=== PATIENT | female | born 1950 | race Caucasian/White ===

== ENCOUNTER 2021-10-06 14:30 | Emergency (ER) | payer MEDICARE, OTHER, SELFPAY ==
--- NOTE | 2021-10-06 15:06 | HMH.EDUTC ---
[facility] [place] Clinical Impression: Skin abscess Qualifiers: Site of cutaneous abscess: trunk Site of cutaneous abscess of trunk: unspecified site Qualified Code(s): L02.219 - Cutaneous abscess of trunk, unspecified Disposition: Home, Self-Care Condition on Discharge: Good Instructions: Boil Additional Instructions: Keep the wounds clean and dry. Follow up with your regular doctor. Take the antibiotics as directed and apply the topical antibiotics as directed. Watch the site for signs of worsening infection, such as worsening redness, drainage, swelling, etc. Return in 3 days to have the packing removed and the wound rechecked. GO TO THE ER FOR ANY WORSENING SYMPTOMS Prescriptions: Mupirocin [Bactroban 2% Ointment 22gm tube] 1 applicatio TP TID 7 Days #1 gm Transmission Status: Received by [id number] cephALEXin [cephALEXin 500mg capsule] 500 mg PO Q6H 10 Days #40 cap Transmission Status: Received by [id number] Referrals: Paul Fan [Primary Care Provider] - Time of Disposition: 16:09 Medical Decision Making - Medical Records Medical records reviewed: No: I reviewed the patient's medical records. - Ismael Inquiry Pt receiving controlled substance: No Vital Signs: 10/06/21 15:09 10/06/21 16:30 Temperature 98.2 F 98.2 F Temperature Source Oral Pulse Rate 67 Pulse Rate [Left] 67 Respiratory Rate 16 16 Blood Pressure 146/56 H Blood Pressure [Right Arm] 146/56 H Blood Pressure Mean [Right Arm] 86 02 Sat by Pulse Oximetry 95 Orders (Tests/Meds): ED MEDICATIONS Discontinued Medications Generic Name Dose Route Start Last Admin Trade Name Freq PRN Reason Stop Dose Admin Ceftriaxone Sodium 1 gm 10/06/21 16:07 Ceftriaxone 1gm Vial IM 10/06/21 16:08 ONCE ONE Lidocaine HCl 0 ml 10/06/21 16:07 Lidocaine 1% 5ml Pf Vial IM 10/06/21 16:08 ONCE ONE ORDERS Category Date Time Status Wound Culture and Gram Stain Stat Micro 10/06/21 16:20 Results [facility] [place] - General Stated complaint: skin abcess Time Seen by Provider: 10/06/21 15:06 - History of Present Illness Provider Complaint: She has an area of redness and swelling on her right axillary area. This has been getting worse for the past 4 days. She [place] in the [place] of [place] and she beleives she was bit by an insect before she left there to come here. She has had a similar episode to this about 4 years ago after a bug bite. - Related Data Previous Rx's Medication Instructions Recorded Mupirocin [Bactroban 2% Ointment 1 applicatio TP TID 7 Days #1 gm 10/06/21 22gm tube] cephALEXin [cephALEXin 500mg 500 mg PO Q6H 10 Days #40 cap 10/06/21 capsule] Allergies Allergy/AdvReac Type Severity Reaction Status Date / Time No Known Allergies Allergy Verified 10/06/21 15:12 [facility] History - Hepatitis A Screen Attestation statement:: This patient has been screened for Hepatitis A risk factors. I have reviewed the patient's past medical history: Yes ROS Obtained: Yes All systems reviewed & no additional complaints - Constitutional Constitutional: Denies chills, Denies fever(s) - Eyes Eyes: Denies eye discharge - Musculoskeletal Musculoskeletal: Denies joint pain - Integumentary/Breasts Skin/Breast: Reports as per HPI Physical Exam - General General appearance: alert, in no apparent distress - Head Head exam: atraumatic, normocephalic, normal inspection - Eye Eye exam: Present: normal appearance, PERRL, EOMI - ENT ENT exam: Present: normal exam, normal oropharynx, mucous membranes moist, TM's normal bilaterally, normal external ear exam - Neck Neck exam: Present: normal inspection, full ROM, trachea midline. Absent: meningismus, lymphadenopathy - Chest Chest inspection: Present: normal inspection, symmetric chest wall rise. Absent: tenderness - Respiratory Respiratory exam: Present: normal lung sounds bi
[2021-10-06 15:09] VITALS: BP 146/56; PULSE 67; RESP 16; TEMP 36.8; O2SAT 95; BMI 32.4
[2021-10-06 16:30] VITALS: BP 146/56; PULSE 67; RESP 16; TEMP 36.8
== END 2021-10-06 16:34 | disposition home or self-care (01) ==
PROVIDERS: Emergency Provider Nurse Practitioner Family; PCP Family Medicine
DX: L02.219 Cutaneous abscess of trunk, unspecified (principal)
CPT/HCPCS: 10060; 87070; 87205; 99213; G0463

== ENCOUNTER 2021-10-09 13:18 | Emergency (ER) | payer MEDICARE, OTHER, SELFPAY ==
[2021-10-09 13:35] VITALS: BP 136/71; PULSE 88; RESP 16; TEMP 36.8; O2SAT 95; BMI 32.4
--- NOTE | 2021-10-09 13:42 | HMH.EDUTC ---
[facility] [place] Disposition Clinical Impression: Abscess of skin Qualifiers: Site of cutaneous abscess: trunk Site of cutaneous abscess of trunk: chest wall Qualified Code(s): L02.213 - Cutaneous abscess of chest wall Disposition: Home, Self-Care Condition on Discharge: Good Instructions: Boil Additional Instructions: Keep the affected area clean and dry. Follow up with your regular doctor. Take the antibiotics as directed and apply the topical antibiotics as directed. Apply warm wet compresses to the affected area three or four times per day. Follow up with the surgeon (Dr. Souza). Please call his office to make an appointment. The office number will be on this paperwork. GO TO THE ER FOR ANY WORSENING SYMPTOMS Continue the antibiotics until the culture report is complete. It should be complete tonight. I will call you in the morning about it and we will go from there. Referrals: Paul Fan [Primary Care Provider] - Jeet Souza MD [Staff Physician] - Time of Disposition: 14:19 Medical Decision Making - Medical Records Medical records reviewed: No: I reviewed the patient's medical records. - Ismael Inquiry Pt receiving controlled substance: No Vital Signs: 10/09/21 13:35 10/09/21 14:29 Temperature 98.2 F 98.2 F Temperature Source Oral Pulse Rate 88 Pulse Rate [Left] 88 Respiratory Rate 16 16 Blood Pressure 136/71 Blood Pressure [Right Arm] 136/71 Blood Pressure Mean [Right Arm] 92 02 Sat by Pulse Oximetry 95 [facility] [place] HPI - General Stated complaint: abcess on right side Time Seen by Provider: 10/09/21 14:15 - History of Present Illness Provider Complaint: She is back today to have the wound on her right chest rechecked and the packing removed. She states that the site has continued to drain and it feels much better now. - Related Data Previous Rx's Medication Instructions Recorded Mupirocin [Bactroban 2% Ointment 1 applicatio TP TID 7 Days #1 gm 10/06/21 22gm tube] cephALEXin [cephALEXin 500mg 500 mg PO Q6H 10 Days #40 cap 10/06/21 capsule] Allergies Allergy/AdvReac Type Severity Reaction Status Date / Time No Known Allergies Allergy Verified 10/06/21 15:12 [facility] History - Hepatitis A Screen Attestation statement:: This patient has been screened for Hepatitis A risk factors. I have reviewed the patient's past medical history: Yes ROS Obtained: Yes All systems reviewed & no additional complaints - Constitutional Constitutional: Denies chills, Denies fever(s) - Eyes Eyes: Denies eye discharge - Musculoskeletal Musculoskeletal: Denies joint pain - Integumentary/Breasts Skin/Breast: Reports as per HPI Physical Exam - General General appearance: alert, in no apparent distress - Head Head exam: atraumatic, normocephalic, normal inspection - Eye Eye exam: Present: normal appearance, PERRL, EOMI - ENT ENT exam: Present: normal exam, normal oropharynx, mucous membranes moist, TM's normal bilaterally, normal external ear exam - Neck Neck exam: Present: normal inspection, full ROM, trachea midline. Absent: meningismus, lymphadenopathy - Chest Chest inspection: Present: normal inspection, symmetric chest wall rise. Absent: tenderness - Respiratory Respiratory exam: Present: normal lung sounds bilaterally. Absent: respiratory distress - Cardiovascular Cardiovascular exam: Present: regular rate, normal rhythm. Absent: JVD - Abdominal Exam Abdominal exam: Present: soft, normal bowel sounds. Absent: distention, tenderness, guarding - Extremities Exam Extremities exam: Present: normal inspection, full ROM, normal capillary refill. Absent: calf tenderness - Back Exam Back exam: Present: normal inspection. Absent: tenderness - Neurological Exam Neurological exam: Present: alert, oriented X3 - Psychiatric Psychiatric exam: Present: normal affect, normal mood - Skin Skin exam: Present: other (the wound on h
[2021-10-09 14:29] VITALS: BP 136/71; PULSE 88; RESP 16; TEMP 36.8
== END 2021-10-09 14:30 | disposition home or self-care (01) ==
PROVIDERS: Emergency Provider Nurse Practitioner Family; PCP Family Medicine
DX: L02.213 Cutaneous abscess of chest wall (principal)
CPT/HCPCS: 99211; G0463

== ENCOUNTER → 2021-11-09 11:51 | Outpatient (CLI) | payer MEDICARE, OTHER, SELFPAY ==
[2021-11-09 12:29] LABS: Basophils # 0.1 K/mm3 (0-0.2); Basophils % 1.3 % (0.1-2.0); Eosinophils # 0.2 K/mm3 (0.0-0.4); Eosinophils % 2.5 % (0.1-12.0); Hematocrit 42.7 % (37.0-47.0); Hemoglobin 13.7 g/dL (12.2-16.2); Lymphocytes # 2.1 K/mm3 (0.7-4.5); Lymphocytes % 35.1 % (10-50); Mean Corpuscular HGB Conc 32.1 g/dL (31.8-35.4); Mean Corpuscular Hemoglobin 30.8 pg (27.0-31.2); Mean Platelet Volume 10.4 fl (7.4-10.4); Monocytes # 0.4 K/mm3 (0.1-1.0); Monocytes % 6.2 % (1.7-9.3); Neutrophils # 3.2 K/mm3 (1.8-7.8); Neutrophils % 54.9 % (37.0-80.0); Platelet Count 209 K/mm3 (142-424); Red Blood Count 4.45 M/mm3 (4.20-5.40); Red Cell Distribution Width 13.6 % (11.5-17.5); White Blood Count 5.9 K/mm3 (4.8-10.8)
[2021-11-09 13:02] LABS: Alanine Aminotransferase 38 U/L (12-78); Albumin Level 4.3 g/dl (3.5-5.0); Albumin/Globulin Ratio 1.7 (1.1-1.8); Alkaline Phosphatase 93 U/L (38-126); Anion Gap 8.2 mEq/L (5-15); Aspartate Amino Transferase 40 U/L (14-36); Blood Urea Nitrogen 13 mg/dl (7-17); Calcium 9.5 mg/dl (8.4-10.2); Carbon Dioxide 28 mmol/L (22.0-30.0); Chloride 107 mmol/L (98-107); Estimated Glomerular Filt Rate 71 ml/min (>60); GFR (African American) 86 ML/MIN (>60); Globulin 2.6 g/dL (1.3-3.2); Glucose 104 mg/dl (74-100); Potassium 4.2 mmoL/L (3.5-5.1); Sodium 139 mmol/L (136-145); Total Protein,Serum 6.9 g/dl (6.3-8.2)
[2021-11-09 13:10] LABS: Bilirubin,Total 0.1 mg/dl (0.2-1.3)
== END ==
PROVIDERS: PCP Family Medicine; Visit Provider Surgery
DX: L02.91 Cutaneous abscess, unspecified (principal); Z01.812 Encounter for preprocedural laboratory examination; Z20.822 Contact with and (suspected) exposure to COVID-19
CPT/HCPCS: 36415; 80053; 85025; C9803; U0003; U0005

== ENCOUNTER 2021-11-11 07:51 | Day surgery (SDC) | payer MEDICARE, OTHER, SELFPAY ==
[2021-11-07 10:22] VITALS: BMI 31.8
[2021-11-11] VITALS (11 sets, daily range): BP systolic 112–155; BP diastolic 50–80; PULSE 53–71; RESP 12–18; TEMP 36.1–36.6; O2SAT 94–100
--- NOTE | 2021-11-11 08:43 | HMH.ANESCL ---
[facility] Anesthesia Checklist - Patient Identification Patient Identification: Arm Band - Structural Data Admitted From: Home Planned Operative Procedure/s: Excision of Right Chest Wall Cyst Consent for Planned Operative Procedure(s) Verified: Yes Verified Documents: Surgical Consent, History and Physical - NPO Status Verified Time NPO: 00:00 - Additional verifications Anesthesia Reactions: No Hx Blood Transfusions: No Blood Transfusion Reaction: No - Airway Assessment C-Spine Mobility Assessed: Yes (mp2) TMJ Mobility Assessed: Yes Dentition: Good Dentition - Neurological Assessment Level of Consciousness: Awake, Alert - Anesthesia Plan Anesthesia Risk discussed: Yes Anesthesia Plan: Verified ASA Class: II Anesthesia Type: General [facility] History I have reviewed the patient's past medical history: Yes Medical History: Reports:: Asthma Denies:: Cancer, Diabetes Mellitus Type 1, Diabetes Mellitus Type 2, MRSA, Seizures *Have you ever received a pneumonia vaccine?: No *Have you received a flu vaccine this season?: Yes Other Medical History: Denies: Blood Transfusion Reaction Anesthesia experience/problems:: nac Other Surgeries: Yes: Colonoscopy Amputation: No Fractures: No - *Social History Last grade of school completed: High school graduate Smoking Status: Never smoker Alcohol Intake: never Alcohol Intake Frequency:: holidays/special occasions only Substance Use Type: denies use *Occupational Status:: employed *Travel in the last 8 weeks: None Family Hx:: No significant family history
--- NOTE | 2021-11-11 10:34 | HMH.OPNOTE ---
Date of procedure: 11/11/21 Pre-op Diagnosis:: Recurrent right chest wall lesion/cyst Post-op Diagnosis:: Same Procedure performed:: Excision of right chest wall skin lesion (excisional length 3 cm) with intermediate complexity closure Surgeon:: Jeet Souza MD MANAGER ENROLLMENT:: Other Anesthesia: local, LMA Estimated blood loss (mL): 5 Operative findings:: Some underlying scar tissue of uncertain etiology Operative note:: Patient was taken the operating room. She was positioned in supine position. Anesthesia was induced via LMA. Her right side was bumped somewhat to allow for access to the area. It was prepped and draped. Lesion was marked with skin marker for planned grossly negative margins. Limited local anesthetic was infiltrated. Full-thickness skin incision was performed. Dissection was carried down through subcutaneous tissues. There was some underlying subdermal fibrosis consistent with scarring of uncertain etiology. The lesion with overlying skin ellipse was excised to normal healthy appearing subcutaneous tissues with sharp dissection. Hemostasis was achieved with electrocautery. Irrigation was performed. Subdermal tissues were closed with several interrupted 3-0 Vicryl sutures. Skin was closed with interrupted 4-0 nylon. Clean dry sterile dressing was applied. Condition: stable Disposition: PACU Specimens:: Right chest wall skin lesion Complications:: None immediately apparent
--- NOTE | 2021-11-11 10:45 | P.PN_ITS ---
[facility] Anesthesia Record Part I Intake, IV Amount: 900 Estimated blood loss (mL): 0 Urine output (mL): 0 Blood Pressure: 112/50 SaO2: 97 Pulse Rate: 62 Respiratory Rate: 12 Temperature: 97.4 F Patient is:: Awake Stable to PACU at:: 10:35
--- NOTE | 2021-11-11 13:14 | HMH.ANESII ---
[facility] Anesthesia Record Part II Discharge Time: 11:05 Destination: Surgical Day Care (OP Surgery) PACU nurse assessment reviewed?: Yes Patient Condition:: Good Anesthesia Complications:: None Swallowing reflex intact?: Yes Cyanosis?: No Blood Pressure: 117/61 Pulse Rate: 57 Temperature: 97 F Mental Status: Alert & Oriented Pain level:: 0 Nausea and/or vomitting:: None Intake, IV Amount: 0
== END 2021-11-11 11:50 | disposition home or self-care (01) ==
LOC: OR 07:52
PROVIDERS: PCP Family Medicine; Visit Provider Surgery
DX: Z79.899 Other long term (current) drug therapy; J45.909 Unspecified asthma, uncomplicated; L72.8 Other follicular cysts of the skin and subcutaneous tissue; L02.213 Cutaneous abscess of chest wall
CPT/HCPCS: 11403; 12032; 88304; 96374; J2405

== ENCOUNTER 2022-11-20 09:38 | Day surgery (SDC) | payer MEDICARE, OTHER, SELFPAY ==
[2022-10-30 14:32] VITALS: BMI 32.9
[2022-11-20 09:59] VITALS: BP 153/73; PULSE 65; RESP 18; TEMP 36.3; O2SAT 97
--- NOTE | 2022-11-20 10:31 | EXP.ANES.CKL ---
[facility] Disclaimer: The information contained in this section may have been updated after the patient was seen, as this information can be updated by other users. Medical History Allergies Rosacea Surgical History History of colonoscopy History of incision and drainage Hx of arthroscopic knee surgery Family History Other No significant family history Social History Smoking Status: Never smoker alcohol intake: current substance use type: denies use current occupational status: retired Travel in the last 8 weeks: None household members: spouse housing: house lives independently: No marital status: education level: college service: No senior care: No current occupational exposures/hazards: No caffeine: Yes special patrick needs: No agree to transfusion: No do you feel safe at home: Yes victim of physical abuse: No victim of emotional abuse: No victim of sexual abuse: No would you like helpful sources: No [facility] Anesthesia Checklist Patient Identification Patient Identification: Arm Band Structural Data Admitted From: Home Planned Operative Procedure/s: Colonoscopy Consent for Planned Operative Procedure(s) Verified: Yes Verified Documents: Surgical Consent and History and Physical NPO Status Verified Time NPO: 00:00 Additional verifications Anesthesia Reactions: No Hx Blood Transfusions: No Blood Transfusion Reaction: No Airway Assessment Mallampati Score:: Class II C-Spine Mobility Assessed: Yes TMJ Mobility Assessed: Yes Dentition: Good Dentition Neurological Assessment Level of Consciousness: Awake and Alert Anesthesia Plan Anesthesia Risk discussed: Yes Anesthesia Plan: Verified ASA Class: II Anesthesia Type: MAC
[2022-11-20 11:10] VITALS: O2SAT 97
--- NOTE | 2022-11-20 11:29 | HMH.SCOPE ---
Procedure: Date: 11/20/22 Patient Date of :: 1950 Procedure Performed:: Screening colonoscopy Indications:: Screening for colon cancer Performing Provider:: Makayla Lowery MD Referring Provider:: Enmanuel Rg MD Sedation:: Propofol Procedure:: After placing the patient in the left lateral decubitus position, the colonoscopy was gently inserted into the rectum and under direct visualization advanced to the cecum which was identified by transillumination in the right lower quadrant, identification of the ileocecal valve, appendiceal orifice, and cecal strap. Color, texture, mucosa, and anatomy of the colon were carefully examined with the scope. Findings:: Anal canal: normal Rectum: normal Sigmoid colon: normal without polyps or inflammatory changes Descending colon: normal without polyps or inflammatory changes Splenic flexure: normal Transverse colon: normal without polyps or inflammatory changes Hepatic flexure: normal Ascending colon: normal without polyps or inflammatory changes Cecum: normal Terminal ileum: not visualized Impression: Normal colonoscopy Recommendations:: Follow up examination in about TEN years or so, sooner if clinically indicated. Complications:: None Estimated blood obtained (mL): 0 Colonoscopy Component Colonoscopy Component Was a colonoscopy performed during today's procedure?: Yes Recommended follow up colonoscopy of at least 10 years?: Yes
[2022-11-20 11:33] VITALS: BP 110/59; PULSE 65; RESP 18; TEMP 36.1; O2SAT 97
[2022-11-20 11:43] VITALS: BP 109/63; PULSE 57; RESP 18; TEMP 36.1; O2SAT 97
[2022-11-20 11:53] VITALS: BP 119/91; PULSE 57; RESP 18; TEMP 36.1; O2SAT 100
[2022-11-20 12:06] VITALS: BP 146/72; PULSE 59; RESP 18; TEMP 36.1; O2SAT 100
== END 2022-11-20 12:06 | disposition home or self-care (01) ==
PROVIDERS: PCP Family Medicine; Visit Provider Internal Medicine Gastroenterology
PROC: 0DJD8ZZ Inspection of Lower Intestinal Tract, Via Natural or Artificial Opening Endoscopic (ICD-10-PCS; CPT 45378; principal; 2022-11-20 11:00)
DX: Z12.11 Encounter for screening for malignant neoplasm of colon (principal)
CPT/HCPCS: G0121

== ENCOUNTER → 2022-12-15 15:07 | Outpatient (CLI) | payer MEDICARE, OTHER, SELFPAY ==
--- NOTE | 2022-12-15 15:12 | MM_ITS ---
PROCEDURE INFORMATION: Exam: MG Bilateral Screening 3D Mammography Exam date and time: 12/15/2022 3:13 PM Age: 72 years old Clinical indication: Screening mammogram. No personal or family history of breast cancer TECHNIQUE: Imaging protocol: Bilateral Screening tomosynthesis and 2D mammography including computer-aided detection (CAD) when performed. COMPARISON: 1. [facility] SCRN MAMMO W/CAD BILAT 12/21/2020 1:20 PM 2. MG [facility] SCRN MAMMO W/CAD LT 11/19/2018 3:16 PM 3. MG [facility] DIAG MAMMO W/CAD RT 10/28/2018 11:05 AM 4. MG [facility] SCRN MAMMO W/CAD BILAT 11/04/2017 2:11 PM FINDINGS: MAMMOGRAPHY: Breast composition: TheThere are scattered areas of fibroglandular density. Mass: None. Architectural distortion: No new or suspicious architectural distortion. Calcifications: No new or suspicious calcifications are present Asymmetric density: No new or suspicious asymmetric density is present Skin thickening: None. Axillary adenopathy: None. IMPRESSION: No mammographic evidence of malignancy. Recommend annual screening mammography unless otherwise clinically indicated. ASSESSMENT: BI-RADS category 1: Negative
== END ==
PROVIDERS: PCP Family Medicine; Visit Provider Internal Medicine Adolescent Medicine
DX: Z12.31 Encounter for screening mammogram for malignant neoplasm of breast (principal)
CPT/HCPCS: 77063; 77067

== ENCOUNTER 2024-01-12 15:00 | Outpatient (POV) | payer MEDICARE, OTHER, SELFPAY | END 2024-01-12 23:59 | disposition home or self-care (01) | LOC: SC 01-13 06:44 | PROVIDERS: Visit Provider Dermatology | DX: Z00.00 Encounter for general adult medical examination without abnormal findings (principal) ==

== ENCOUNTER 2024-08-25 14:20 | Outpatient (CLI) | payer MEDICARE, SELFPAY ==
--- NOTE | 2024-08-25 14:30 | CT_ITS ---
FINAL REPORT TECHNIQUE: Thin section axial CT images of the facial bones and sinuses were obtained without contrast. Coronal and axial reformatted images were also obtained. This study was performed with techniques to keep radiation doses as low as reasonably achievable, (ALARA). Individualized dose reduction techniques using automated exposure control or adjustment of mA and/or kV according to the patient's size were employed. CLINICAL HISTORY: previous surgery 30 years ago recent sinus infection July, on allergy meds COMPARISON: None FINDINGS: CT SINUS: There are postoperative changes of the maxillary sinuses bilaterally. There is mucosal hypertrophy of the inferior turbinates, which mildly protrude into the bilateral maxillary sinuses. There is bilateral mild narrowing of the nasal passages secondary to mucosal hypertrophy of the turbinates. No fluid levels are identified. The nasal septum is essentially midline. No fracture or acute bony abnormality is identified. IMPRESSION: 1. No active sinus disease, with no air-fluid levels identified. 2. Bilateral mild narrowing of the nasal passages secondary to mucosal hypertrophy of the turbinates. Reviewed, Interpreted and Dictated by Johnie Andino MD Transcribed by Rosa Villela Authenticated and [facility]
== END 2024-08-25 23:59 | disposition home or self-care (01) ==
LOC: RAD 14:21
PROVIDERS: PCP Internal Medicine Adolescent Medicine; Visit Provider Nurse Practitioner
DX: J34.3 Hypertrophy of nasal turbinates (principal); J32.9 Chronic sinusitis, unspecified; Z98.890 Other specified postprocedural states
CPT/HCPCS: 70486

== ENCOUNTER 2024-11-04 15:02 | Emergency (ER) | payer MEDICARE, SELFPAY ==
[2024-11-04 15:21] VITALS: BP 153/62; PULSE 71; RESP 19; TEMP 36.7; O2SAT 98; BMI 31.8
[2024-11-04 15:30] VITALS: BP 133/60; PULSE 67; RESP 17; O2SAT 98
--- OUTSIDE RECORDS SUMMARY | 2024-11-04 15:30 | XMS_ITS | Clinical Summary ---
Author Organization [facility] yste Address [address] [place] [address] Care Team Providers Care Head Grower Name Role Phone Paul Fan MD Primary Care Provider Allergies Active Allergy Reactions Criticality Noted Date Comments Procaine Arrhythmia 11/27/2021 Causes racing-xylocaine also causes same reaction Can use carbocaine Medications CBD (cannabidiol) oral oil Take by mouth. Active fluticasone (FLONASE) 50 MCG/ACT nasal sprayIndication s:Environmental and seasonal allergies 2 sprays into the nostril(s) as directed by provider Daily. 16 g 11 10/26/2020 Active doxycycline (PERIOSTAT) 20 MG tablet TAKE 1 TABLET BY MOUTH ONCE DAILY STARTING AFTER 50MG DOSE IS FINISHED 11/05/2020 Active montelukast (SINGULAIR) 4 MG chewable tabletIndicatio ns:Environmenta l and seasonal allergies CHEW AND SWALLOW 1 TABLET BY MOUTH AT BEDTIME 90 tablet 12/30/2022 Active Active Problems Problem Noted Date Diagnosed Date Mass of upper outer quadrant of right breast 02/2019 Elevated liver enzymes 12/14/2015 Annual physical exam 08/31/2015 Immunizations Immunization Administration Dates Next Due COVID-19 (PFIZER) Purple Cap Monovalent 09/28/19 21,08/29/2020 Hepatitis A 12/04/2021,11/13/2018 Pneumococcal Conjugate 13-Valent (PCV13) 018 Pneumococcal Polysaccharide (PPSV23) 01/04/2021 Shingrix 10/14/2024,09/21/2023 Tdap 10/29/2023,10/02/2016 Zostavax 11/21/2016 Family History Medical History Relation Name Comments Goiter Mother Relation Name Status Comments Mother Social History Tobacco Use Types Packs/Day Years Used Date Smoking Tobacco: Never Smokeless Tobacco: Never Alcohol Use Standard Drinks/Week Comments Yes 0 (1 standard drink = 0.6 oz pur e alcohol) Occasional PHQ-2 Answer Date Recorded Retired PHQ-9: Brief Depression Severity Measure Score 0 11/27/2021 Abuse Screen Answer Date Recorded Unsafe at Home or Work/School Not on file Feels Threatened by Someone? Not on file 01/2023 Does Anyone Keep You from Co ntacting Others or Doint Things Outside the Home? Not on file 01/13/2023 Physical Sign of Abuse Present Not on file 1 Housing Stability Answer Date Recorded Current Living Arrangements Not on file 01/04 Potentially Unsafe Housing Conditions Not on nellie e 01/13/2023 Family and Community Support Answer Thom e Recorded Help with Day-to-Day Activities Not on file 01/13/2023 Lonely or Isolated Not on file 01/13/2023 Employment Answer Date Recorded Do you want help finding or keeping work or a shirley b? Not on file 01/13/2023 Disabilities Answer Date Recorded Concentrating, Remembering, or Making Decisions Difficulty Not on file 01/13/2023 Doing Errands Independently Difficulty Not on fi le 01/13/2023 Education Answer Date Recorded Help with school or training? Not on file Preferred Language Not on file 01/13/2023 Comments No Sex and Gender Information Value Date Recorded Sex Assigned at Not on file Legal Sex Female 1:36 PM EDT Gender Identity Not on file Sexual Orientation Not on file Last Filed Vital Signs Vital Sign Reading Time Taken Comments Blood Pressure 126/88 02/16/2023 3:22 PM EST Pulse 68 12/17/2021 2:24 PM EDT Temperature 37.1 C (98.7 F) 12/17/2021 2:24 PM EDT Respiratory Rate 18 12/17/2021 2:24 PM EDT Oxygen Saturation 96% 12/17/2021 2:24 PM EDT Inhaled Oxygen Concentration - - Weight 81.5 kg (179 lb 9.6 oz) 02/16/2023 3:22 P M EST Height 172.7 cm (5' 7.99 ) 02/16/2023 3:22 PM ES T Body Mass Index 27.31 02/16/2023 3:22 PM EST Plan of Treatment Health Maintenance Due Date Last Done Comments COLOGUARD 1996 COLON CANCER SCREENING 5 YEA R SIGMOIDOSCOPY 1996 CT COLONOGRAPHY 1996 FECAL OCCULT BLOOD TEST 1996 FIT Testing (1 year) 1996 ANNUAL WELLNESS VISIT 11/27/2022 11/27/2021 , 11/27/2021, 10/26/2020, Additional history exists DXA SCAN 12/21/2022 12/21/2020, 12/21/2020 LIPID PANEL 09/04/2023 09/03/2022, 11/05, 10/15/2018, Additional history exists COVID-19 Vaccine (2023- 5 season) 2023 01/23/2023, 12/25/2021, 09/27/2020, Additional history exists MAMMOGRAM 12/15/2024 12/15/2022, 12/05, 12/21/2020, Additional history exists INFLUENZA VACCINE 01/04/2025 COLONOSCOPY 11/20/2032 11/20/2022, 04/2014 (Patient-Reported (Performed Externally)) COLORECTAL CANCER SCREENING 11/20/2032 TDAP/TD VACCINES (4 - Td or Tdap) 10/28/2033 10/29/2023, 10/02/2016, 09/12/2016 (Patient-Reported (Performed Externally)) HEPATITIS C SCREENING Completed 09/25/2016, 017 Pneumococcal Vaccine 50+ Completed 01/04/2021, 10/2017 ZOSTER VACCINE Completed 10/14/2024, 09/04, 11/21/2016, Additional history exists Procedures Procedure Name Priority Date/Time Associated Diagnosis Comments SCANNED - MAMMO 12/15/2022 SCANNED - COLONOSCOPY 11/20/2022 LIPID PANEL Routine 11/27/2021 1:02 PM EDT Medicare annual wellness visit, subsequent Encounter for lipid screening for cardiovascular disease SCANNED - DEXA 12/21/2020 HEPATITIS C ANTIBODY Routine 09/25/2016 11:15 AM EDT Need for hepatitis C screening test from Last 3 Months or Most Recently Relevant to Health Maintenance Results * SCANNED - MAMMO (12/15/2022) Anatomical Region Laterality Modality Other Paul Fan MD CHART REVIEW TABS Final Resu lt * SCANNED - COLONOSCOPY (11/20/2022) Jakob Mata MD CHART REVIEW TABS Final Resu lt * (ABNORMAL) Lipid Panel (11/27/2021 1:02 PM EDT) Pathologist [facility] [place] Total Cholesterol 195 100 - 199 mg/dL [facility] Triglycerides 128 0 - 149 mg/dL [facility] HDL Cholesterol 64 >39 mg/dL [facility] VLDL Cholesterol Brian 22 5 - 40 mg/dL [facility] LDL Chol Calc (NIH) 109(H) 0 - 99 mg/dL [facility] Blood 11/27/2021 1:02 PM EDT 11/27/2021 Narrative [facility] ([facility]) - 12/01/2021 3:06 AM EDT Performed at: 01 - [facility] [address] [place], [place] [id number] Manager Hvac: Osvaldo Cifuentes PhD, Phone: [phone] Richard HWANG LAB BLOOD ORDERABLES Final Res ult [facility] ([facility]) [address] [place] [address], [facility] [address] [place] [address], * SCANNED - DEXA (12/21/2020) Anatomical Region Laterality Modality Other us Madison Harrison APRN CHART REVIEW TABS Final Resul t * Hepatitis C antibody (09/25/2016 11:15 AM EDT) Hep C Virus Ab <0.1 0.0 - 0.9 s/co ratio [facility] Comment: Negative: < 0.8 Indeterminate: 0.8 - 0.9 Positive: > 0.9 The CDC recommends that a positive HCV antibody result be followed up with a HCV Nucleic Acid Amplification test ([id number]). Blood 09/25/2016 11:1 5 AM EDT 09/25/2016 Narrative [facility] (AMBULATORY) - 09/26/2016 5:12 AM EDT Performed at: 02 - [address] [id number] Manager Hvac: Osvaldo Cifuentes PhD, Phone: [phone] Patient Fasting: Y us Madison Harrison APRN LAB BLOOD ORDERABLES Final Resul t [facility] (AMBULATORY) [address] [place] [address], [facility] [address] [place] [address], [place] [phone] from Last 3 Months or Most Recently Relevant to Health Maintenance Insurance MEDICARE A & B [employer] [place] [id number] Care Teams Head Grower Relationship Specialty Start Date End Date Paul Fan MD [address] [place] [address] PCP - General Family Medicine 05/30/21
--- NOTE | 2024-11-04 15:38 | XR_ITS ---
FINAL REPORT CLINICAL HISTORY: fall, injury COMPARISON: None. FINDINGS: AP, oblique, and lateral views of the left elbow were obtained. There is a comminuted, displaced olecranon fracture. There is a gap of approximately 2 cm between the dominant distal fragments. No additional fracture. Joint space is preserved. There is prominent posterior soft tissue edema and there is a small joint effusion. IMPRESSION: Comminuted, displaced olecranon fracture. Authenticated and ERN
--- NOTE | 2024-11-04 15:38 | XR_ITS ---
FINAL REPORT CLINICAL HISTORY: fall, injury FINDINGS: AP and lateral views of the left forearm are obtained. There is no prior exam for comparison. A comminuted olecranon fracture is present. No additional fractures are identified in either the left radius or left ulna. There is soft tissue edema of the proximal forearm. IMPRESSION: Comminuted olecranon fracture. Authenticated and ERN
--- NOTE | 2024-11-04 15:38 | XR_ITS ---
FINAL REPORT CLINICAL HISTORY: fall, injury COMPARISON: None. FINDINGS: 2 views of the left humerus were obtained. There is no acute osseous abnormality of the left humerus. An olecranon fracture is noted at the elbow. There is soft tissue edema. IMPRESSION: No acute fracture of the left humerus. Authenticated and ERN
--- NOTE | 2024-11-04 15:47 | HMH.EDGENADL ---
Discharge Plan Disposition Patient Disposition: Xfer Other Prescriptions Prescriptions: No Action loratadine [Claritin] 10 mg tablet 10 mg PO DAILY PRN metronidazole 0.75 % cream 0.75 applic TOPICAL NEEDED PRN (Reason: rosceasa) montelukast 4 MG tablet,chewable 4 mg PO DAILY doxycycline hyclate 20 MG tablet 20 mg PO NEEDED PRN (Reason: rosceasa) Referrals Follow up/Referrals: Enmanuel Rg MD [Primary Care Provider, Internal Medicine] - See instructions Clinical Impressions Clinical Impression: Fracture, olecranon Print Language Print Language: Czech Discharge ED Provider: Damon Smith General Adult HPI General Chief complaint: Extremity Injury, Upper Stated complaint: AO Fall 11/04/24 9:30; Disslocated L Elbow Time Seen by Provider: 11/04/24 15:25 Mode of Arrival: Ambulatory Source of Information: Patient Description of Symptoms (Recalled from ER Triage Doc. by RN): Patient presents to ED with c/o left elbow pain and right knee pain. States she tripped on the sidewalk at 0930 this AM. Denies hitting head, denies blood thinner use. Obvious deformity to left upper arm noted, abrasion to right knee noted as well. Patient states she last took Tylenol at 1400. History of Present Illness HPI narrative: Patient is a 74-year-old female who presents today after falling and sustaining injuries. She was at a [employer] in [facility] today and she tripped on pavement falling onto outstretched arm and onto her right knee she sustained a small abrasion on the right knee but states that that is fine with normal range of motion and weightbearing however she states that she believes that she dislocated her left elbow had no range of motion felt numbness in the hand and it felt like it was out of place but it spontaneously reduced itself when she felt a pop after which her range of motion returned as did her sensation she does still have somewhat limited range of motion but secondary to swelling she states that her tetanus is up-to-date to her knowledge. Related Data Home Medications ?Medication ?Instructions ?Recorded ?Confirmed doxycycline hyclate 20 mg tablet 20 mg PO NEEDED PRN rosceasa 11/07/21 09/01/24 montelukast 4 mg chewable tablet 4 mg PO DAILY allergies 11/07/21 09/01/24 metronidazole 0.75 % topical cream 0.75 applic topical NEEDED PRN 10/30/22 09/01/24 rosceasa loratadine 10 mg tablet (Claritin) 10 mg PO DAILY PRN 08/08/24 09/01/24 Allergies Allergy/AdvReac Type Severity Reaction Status Date / Time procaine (From Novocain) Allergy Unknown Verified 09/01/24 13:36 allergy reaction [facility] Disclaimer: The information contained in this section may have been updated after the patient was seen, as this information can be updated by other users. Medical History (Updated 11/04/24 @ 16:33 by Damon Smith MD) Hypertrophy of nasal turbinates Chronic sinusitis Seasonal allergies Rosacea Allergies Surgical History Hx of arthroscopic knee surgery History of incision and drainage History of colonoscopy Family History Other No significant family history Social History Smoking Status: Never smoker alcohol intake: current alcohol intake frequency: holidays/special occasions only substance use type: denies use current occupational status: retired Travel in the last 8 weeks?: None household members: spouse housing: house lives independently: No marital status: education level: college service: No group home: No current occupational exposures/hazards: No caffeine: Yes special patrick needs: No agree to transfusion: No do you feel safe at home: Yes victim of physical abuse: No victim of emotional abuse: No victim of sexual abuse: No would you like helpful sources: No Have you lived/traveled outside US in past 30 days?: No Contact w/someone who lives/traveled outside US past 30 days?: No Exposure to someone with infectious disease in past 14 days?: No Do you have a fever (greater than 100.4 F or 38 C)?: No Have you tested positive for COVID-19?: No Exposed to someone with COVID-19 in past 14 days?: No Do you have a sore throat?: No Do you have a cough?: No Do you have any weakness?: No Do you have any diarrhea?: No Are you experiencing any unusual bleeding?: No Do you have any muscle aches/pain?: No Do you have any abdominal pain?: No Are you experiencing loss of taste or smell?: No Other Medical History Have you received the Flu Vaccine for this season: Yes Have you received the Pneumonia Vaccine: Yes ROS Obtained: Yes All systems reviewed & no additional complaints except as documented Physical Exam General General appearance: alert and in no apparent distress Respiratory Respiratory exam: Present normal lung sounds bilaterally Cardiovascular Cardiovascular exam: Present regular rate and normal rhythm Extremities Exam Extremities exam: Present other (Right knee there is a small abrasion but normal range of motion no other soft tissue abnormalities left elbow there is significant soft tissue swelling over the olecranon she has not intact pronation supination motor and sensory function she does have somewhat limited range of motion with flexion) Neurological Exam Neurological exam: Present alert and oriented X3 Medical Decision Making Medical Records Screening: Per USPSTF and CDC recommendations, given the prevalence of disease in our region, it is our hospital?s policy to screen for HIV and viral Hepatitis for all patients aged 18 and over and those with ongoing risk factors. Ismael Inquiry Pt receiving controlled substance: No Vital Signs: 11/04/24 15:21 11/04/24 15:30 11/04/24 16:01 Temperature 98.1 F Temperature Source Oral Pulse Rate 67 66 Pulse Rate [Left] 71 Respiratory Rate 19 17 Blood Pressure 133/60 139/60 Blood Pressure [Right Arm] 153/62 H Blood Pressure Mean 84 77 Blood Pressure Mean [Right Arm] 92 Blood Pressure Source [Right Arm] Automatic Cuff Blood Pressure Position [Right Arm] Sitting 02 Sat by Pulse Oximetry 98 98 98 Oxygen Delivery Method Room Air Room Air Room Air Orders (Tests/Meds): ORDERS Category Date Time Status Elbow XR left mininum 3 views [XR elbow LT min 3V] Stat Exams 11/04/24 15:38 Completed Forearm XR left 2 views [XR forearm LT 2V] Stat Exams 11/04/24 15:38 Completed Humerus XR left [XR humerus LT] Stat Exams 11/04/24 15:38 Completed Medical Decision Narrative: Patient presented with above history and physical had significant swelling and limited range of motion on the left differential includes transient dislocation and disruption of the leukocyte tissues, sprain, fracture, dislocation. X-rays were performed I personally interpreted which shows a comminuted and displaced olecranon avulsion fracture there do appear to be fragments that are possibly intra-articular with her limited range of motion with flexion I discussed this case with our orthopedic surgeon who is not in town until Thursday and he is concerned about the stability of this and the fact that it may need urgent surgical intervention. Therefore I spoke with Yusra Lobo with [facility] who accepted the patient to the [place] [facility] to be evaluated by trauma/orthopedic surgery for possible surgical intervention. Critical Care Critical Care Time Critical Care Time: No
[2024-11-04 16:01] VITALS: BP 139/60; PULSE 66; O2SAT 98
--- NOTE | 2024-11-04 16:09 | PC.NURSE ---
I called and spoke with Kady in radiology. She is going to power share to [place] and make a disc.
--- NOTE | 2024-11-04 16:15 | PC.NURSE ---
Called [facility] regarding consult and possible tx. They advised when Ortho saw the images they would call us back in a few minutes
--- NOTE | 2024-11-04 16:45 | PC.NURSE ---
Report called to FE Graham at [facility].
--- NOTE | 2024-11-04 17:00 | PC.NURSE ---
EMS notified of tx. They advised once the current unit clears from the call they are on they would come up to take this pt
--- NOTE | 2024-11-04 17:07 | PC.NURSE ---
EMS required Pre-Authorization for insurance. Completed and being faxed now
[2024-11-04 17:51] VITALS: BP 137/74; PULSE 87; RESP 17; TEMP 36.8; O2SAT 99
== END 2024-11-04 17:53 | disposition other institution (70) ==
PROVIDERS: Emergency Provider Student in an Organized Health Care Education/Training Program; PCP Internal Medicine Adolescent Medicine
DX: S52.022A Displaced fracture of olecranon process without intraarticular extension of left ulna, initial encounter for closed fracture (principal); M25.522 Pain in left elbow; W01.10XA Fall on same level from slipping, tripping and stumbling with subsequent striking against unspecified object, initial encounter
CPT/HCPCS: 73060; 73080; 73090; 99284

== ENCOUNTER 2024-12-22 13:58 | Outpatient (CLI) | payer MEDICARE, SELFPAY ==
--- OUTSIDE RECORDS SUMMARY | 2024-11-04 18:49 | XMS_ITS | Encounter Summary ---
Author Organization Healthcare Address [address] [place] [address] Care Team Providers Care Lever Miller Name Role Phone Pcp, No Primary Care Provider Unavailabl e Reason for Referral * Consultation (Routine) - Closed Specialty Diagnoses / Procedures Referred By Yrn de leon Referred To Contact Orthopaedic Surgery Diagnoses Closed fracture of olecranon process of left ulna, initial encounter Adilene Malik MD [address] [place] [address] Phone: tel: fax: [facility] Orthopaedic Surgery & Sports Medicine [address] [place] [address] Phone: tel: fax: Referral ID Status Reason Start Date Expiration Date V isits Requested Visits Authorized [id number] Closed Specialty Services Required 11/05/2024 05/07/2026 1 1 Reason for Visit * Reason Comments Fall Encounter Details Date Type Department Care Team (Late st Contact Info) Description 11/04/2024 6:49 PM EDT - 11/05/2024 10:11 AM EDT Emergency [facility] Emergency Department [address] [place] [address] Danny Beltran MD [address] [facility] [address] [place] [address] AkJorje baig MD [address] [place] [address] Adilene Malik MD [address] [place] [address] Closed fracture of olecranon process of left ulna, initial encounter (Primary Dx); Fall, initial encounter Discharge Disposition: Home or Self Care Social History Tobacco Use Types Packs/Day Years Used Date Smoking Tobacco: Never Assessed Comments Unknown Sex and Gender Information Value Date Recorded Sex Assigned at Not on file Legal Sex Female 8:18 PM EDT Gender Identity Not on file Sexual Orientation Not on file documented as of this encounter Last Filed Vital Signs Vital Sign Reading Time Taken Comments Blood Pressure 133/75 11/05/2024 7:38 AM EDT Pulse 65 11/05/2024 7:38 AM EDT Temperature 36.9 C (98.5 F) 11/05/2024 7:38 AM EDT Respiratory Rate 16 11/05/2024 7:38 AM EDT Oxygen Saturation 97% 11/05/2024 7:38 AM EDT Inhaled Oxygen Concentration - - Weight 80.1 kg (176 lb 9.4 oz) 11/04/2024 6:50 P M EDT Height 160 cm (5' 3 ) 11/04/2024 6:50 PM EDT Body Mass Index 31.28 11/04/2024 6:50 PM EDT documented in this encounter Functional Status * Calculated C-SSRS Risk Score (Lifetime/Recent) Answer Date of Assessment Author No Risk Indicated 11/04/2024 7:02 PM EDT Shari Gómez RN * Question Answer Date of Assessment Author 1. Wish to be (Past 1 Month) No 025 7:02 PM EDT Joya Gómez RN 2. Non-Specific Active Suici tayo Thoughts (Past 1 Month) No 11/04/2024 7:02 PM EDT Joya Gómez RN 6. Suicidal Behavior (Lifetime) No 7:02 PM EDT Joya Gómez RN documented as of this encounter Discharge Instructions * Discharge Instructions* Jarett Corley MD - 11/05/2024 9:42 AM EDT You were seen and evaluated in the Emergency Department. Please return to ED if your symptoms worsen, change in location, change in severity, new symptoms develop or if you become concerned for your health. Please follow-up with orthopedic surgery as plan for outpatient surgery on Wednesday 11/08. TakeTylenol every 6 hours as needed for pain. Use sling as needed for comfort. documented in this encounter Medications at Time of Discharge doxycycline (Periostat) 20 MG tablet Take 1 tablet by mouth. 2 times a week 12/23/2023 metroNIDAZOLE (Metrocream) 0.75 % cream Apply topically. 2 times a week 01/25/2024 montelukast (Singulair) 4 MG chewable tablet Chew every morning. 10/18/2024 documented as of this encounter Miscellaneous Notes * ED Notes - Mary Alice Holliday RN - 11/05/2024 10:10 AM EDT Patient discharge instructions given. Patient verbalizes understanding. PIV discontinued. Patient escorted to ED waiting room for transportation home. * Funmi OnFHIR - Mary Alice Holliday RN - 11/05/2024 9:49 AM EDT Images from the original note were not included. [id number] Elbow Fracture You have a break (fracture) of 1 or more bones of your elbow joint. This may be a small crack in the bone. Or it may be a major break, with the broken parts pushed out of position. This fracture usually takes 4 to 12 weeks to heal, depending on the type. The first step in treatment is to have a splint or cast. Severe fractures may need surgery to put the bone fragments back into place. This is done by an orthopedic surgeon. This is a surgeon who specializes in treating bone, muscle, joint, and tendon problems. Home care Follow these guidelines when caring for yourself at home: ? Keep your arm raised (elevated) to reduce pain and swelling. When sitting or lying down, keep your arm above the level of your heart. You can do this by placing your arm on a pillow that rests on your chest or on a pillow at your side. This is most important during the first 2 days (48 hours) after the injury. ? Put an ice pack on the injured area. Do this for 20 minutes every 1 to 2 hours the first day. To make an ice pack, place ice cubes in a plastic bag that seals at the top. Wrap the bag in a thin towel. As the ice melts, be careful that the cast or splint doesn?t get wet. You can place the ice packinside the sling and directly over the splint or cast. Keep using the ice pack 3 to 4 times a day for the next 2 days. Then use the ice pack as needed to ease pain and swelling. ? Keep the splint or cast completely dry at all times. Bathe with your splint or cast out of the water. Protect it with a large plastic bag, rubber-banded or taped at the top end. If a fiberglass splint or cast gets wet, you can dry it with a chairman president and chief executive officer on a cool setting. ? You may use acetaminophen or ibuprofen to control pain unless another pain medicine was prescribed. If you have chronic liver or kidney disease, talk with your health care provider before using these medicines. Also talk with your provider if you?ve had a stomach ulcer, gastrointestinal bleeding,or take a blood thinner. ? Don?t put creams or objects under the cast if you have itching. Follow-up care Follow up with your provider as advised. That's to make sure the bone is healing the way it should.If a splint was put on, it may be changed to a cast during your follow-up visit. X-rays may be taken. You'll be told of any new findings that may affect your care. When to contact your doctor Contact your provider right away if: ? The cast or splint cracks. ? The plaster cast or splint becomes wet or soft. ? The fiberglass cast or splint stays wet for more than 24 hours. ? You feel tightness or pain under the cast or splint gets worse. ? A bad odor comes from the cast or wound fluid stains the cast. ? Your fingers become swollen, cold, blue, numb, or tingly. ? You can?t move your fingers. ? The skin around cast becomes red. ? You have a fever of 100.4??F (38??C) or higher as advised by your provider. ? You have chills. Last Reviewed Date: 2024 00:00:00 ?? [id number] [employer]. All rights reserved. This information is not intended as a substitute for professional medical care. Always follow your healthcare professional's instructions. * Funmi Nga - Mary Alice Holliday RN - 11/05/2024 9:46 AM EDT Images from the original note were not included. [id number] Forearm Fracture Your forearm is made up of two bones: the radius (on your thumb side) and the ulna (on your pinkie side). The main motion of the forearm is rotation, which is the ability to turn your palms up or down. In most cases of forearm fracture, both bones are broken. The bones are not out of place and won't need to be set. Depending on your age and general health, this fracture often takes 6 to 12 weeks to heal completely. Treatment usually starts with a splint or cast to keep your arm in position. Unlike a full cast, a splint can be tightened or loosened and allows swelling to occur safely. Home care ? Keep your arm raised to reduce pain and swelling. When sitting or lying down, raise your arm above heart level. You can do this by placing your arm on a pillow that rests on your chest or on a pillow at your side. This is most important during the first 48 hours after injury. ? Apply an ice pack over the injured area for 15 to 20 minutes every 3 to 6 hours. You should do this for the first 24 to 48 hours. To make a cold pack, put ice cubes in a plastic bag that seals at the top. Wrap the bag in a clean, thin towel or cloth. Never put ice or an ice pack directly on your skin. As the ice melts, be careful that the cast or splint doesn?t get wet. You can place the ice pack inside the sling and directly over the splint or cast. Keep using ice packs as needed to ease pain and swelling. ? Keep the cast or splint completely dry at all times. Bathe with your cast or splint out of the water. Protect it with 2 large plastic bags, one outside of the other, each taped with duct tape at the top end or secured with rubber bands. If a fiberglass splint or cast gets wet, you can dry it witha chairman president and chief executive officer on a cool setting. Do not set the dryer on a warm or hot setting, as it may burn your skin. ? Do not apply powder or lotion on, near, or inside the cast. Do not try to insert anything in yourcast. This can injure your skin, which may lead to infections. ? You may use [id number] pain medicine to control pain unless another pain medicine was prescribed. If you take a blood thinner, have chronic liver or kidney disease, or ever had a stomach ulcer or digestive system bleeding, talk with your health care provider before using these medicines. Follow-up care Follow up with your health care provider as advised. Your provider will follow your progress with repeated X-rays to monitor the healing and any shifts or changes in the position of the fractured bones. If a splint was applied, it may be changed to a cast during your follow-up visit. If X-rays were taken, you'll be told of any new findings that may affect your care. If the positionof your fractured bones shifts or changes, you may need surgery to put the bones back together. Youmay be referred to an orthopedist for more care. As forearm fractures can affect your ability to rotate your arm, as well as bend and straighten thewrist and elbow, it is important to do physical therapy. This is usually started after a few weeks of keeping the arm still by using a cast or brace. Your physical therapist will recommend appropriate exercises at every stage of your recovery to: ? Restore your range of motion. ? Strengthen your muscles and restore your furniture finisher apprentice strength. ? Reduce stiffening of the elbow and wrist joints due to lack of movement in the cast or brace. ? Restore the function of your forearm and help you return to your activities. Your provider will advise you on when you may return to work and sports activities. When to get medical advice Call your health care provider right away if any of the following occur: ? The plaster cast or splint becomes wet or soft. ? The fiberglass cast or splint remains wet for more than 24 hours. ? Increased tightness, looseness, or pain occurs under the cast or splint. ? Your fingers become swollen, cold, blue, numb, or tingly. ? The cast or splint has a bad odor. ? Your forearm becomes swollen, feels tight or tender, or the skin is pink. ? Your forearm doesn't get better with rest or by doing things to relieve pain, such as using ice or taking medicines for pain. Last Reviewed Date: 2024 00:00:00 ?? [id number] [employer]. All rights reserved. This information is not intended as a substitute for professional medical care. Always follow your healthcare professional's instructions. * Significant Event - Sonny Dumont MD - 11/05/2024 8:50 AM EDT ORTHOPEDIC SURGERY INTERIM SUMMARY NOTE Patient evaluated by Orthopedic Trauma team overnight for left closed olecranon fracture. Discussedwith the patient that given her displacement in intra- articular splint we will plan for operative management of this injury on an outpatient basis. Patient will go to OR on Thursday of this week 11/08. She lives local, I have compared her contact information in the chart to be correct and will be nothing by mouth at midnight on Thursday for outpatient surgery on Thursday. Orthopedic Surgery Tertiary Exam Completed 11/05/24 No additional areas of tenderness or deformity noted upon palpation and ROM of upper and lower extremities (excluding known injuries). Brendan Dumont MD Orthopaedic Surgery PGY-2 [facility] Orthopaedic Trauma Service Pager: [phone] Orthopaedic Recon/Spine/Foot and Ankle Service Pager: [phone] Personal Pager: [phone] * Consults - Breny Bennett MD - 11/04/2024 10:24 PM EDTAssociated Order(s): IP CONSULT TO ORTHOPAEDICS ORTHOPAEDIC SURGERY TRAUMA CONSULT CHIEF COMPLAINT : Left arm pain HISTORY OF PRESENT ILLNESS Lashell Mao is a 74 y.o. female with PMH of asthma presents to the ED after a fall from ground level while at a white coat ceremony in [place]. She was found to have a left olecranon fracture. Fracture was closed on exam. Patient denies hitting there had or losing consciousness with fall. He had no other injuries. Patient is normally highly active it [facility] and uses no assist devices with ambulation. PAST MEDICAL HISTORY Past Medical History[1] MEDICATIONS Current Medications[2] ALLERGIES Allergies[3] PAST SURGICAL HISTORY Surgical History[4] Left knee arthroscopy. FAMILY HISTORY Family History[5] SOCIAL HISTORY Tobacco: denies EtOH: denies Illicits: Uses CBD. Lives: [facility] Employment: Retired REVIEW OF SYSTEMS Filled out by the patient PHYSICAL EXAMINATION General Physical Exam Constitutional No acute distress Head Normocephalic and atraumatic Cardiovascular Peripheral perfusion intact Pulmonary/Chest Good respiratory effort, symmetric chest expansion, no respiratory difficulty appreciated Neurological Alert and oriented to person, place, and time Psychiatric Normal mood and affect, behavior and judgment Body mass index is 31.28 kg/m??. VITALS: I examined the patient 11/04/2024 10:25 PM Vital Signs:Visit Vitals BP (!) 166/77 Pulse 65 Temp 36.3 ??C (97.4 ??F) Resp 17 Ht 1.6 m (5' 3 ) Wt 80.1 kg (176 lb 9.4 oz) SpO2 97% BMI 31.28 kg/m?? BSA 1.89 m?? FOCUSED MUSCULOSKELETAL EXAM: Clavicles: non-tender to palpation bilaterally without crepitus Pelvis: stable to AP and lateral compression RIGHT UPPER EXTREMITY Inspection: skin intact, no deformity, soft compartments, no pain with passive stretch, non-tender to palpation Range of motion: Full/painless/stable at shoulder, elbow, and wrist Motor: 5/5 ER/IR, 5/5 Deltoid, 5/5 Biceps, 5/5 Triceps, 5/5 Wrist flexion, 5/5 Wrist extension, 5/5Finger flexion, 5/5 Finger extension, 5/5 Finger abduction, 5/5 EPL, 5/5 FPL Sensation: Sensation intact to light touch in axillary, radial, median, and ulnar nerve distributions Vascular: 2+ radial pulse, capillary refill <2 seconds, digits warm and well perfused LEFT UPPER EXTREMITY Inspection: skin intact, closed injury, 1 cm superficial abrasion over posterior distal humerus tender to palpation Range of motion: Full/painless/stable at wrist Motor: 4/5 ER/IR, 4/5 Deltoid, 4/5 Biceps, 4/5 Triceps, 5/5 Wrist flexion, 5/5 Wrist extension, 5/5Finger flexion, 5/5 Finger extension, 5/5 Finger abduction, 5/5 EPL, 5/5 FPL Sensation: Sensation intact to light touch in axillary, radial, median, and ulnar nerve distributions Vascular: 2+ radial pulse, capillary refill <2 seconds, digits warm and well perfused RIGHT LOWER EXTREMITY Inspection: skin intact, no deformity, soft compartments, no pain with passive stretch, non-tender to palpation Range of motion: Full/painless/stable at hip, knee, and ankle Motor: 5/5 KE, 5/5 KF, 5/5 TA, 5/5 GSC, 5/5 EHL, 5/5 FHL Sensation: Sensation intact to light touch in superficial and deep peroneal, saphenous, sural, and tibial nerve distributions Vascular: 2+ dorsalis pedis and posterior tibialis pulses, capillary refill <2 seconds, digits warm and well perfused LEFT LOWER EXTREMITY Inspection: skin intact, no deformity, soft compartments, no pain with passive stretch, non-tender to palpation Range of motion: Full/painless/stable at hip, knee, and ankle Motor: 5/5 KE, 5/5 KF, 5/5 TA, 5/5 GSC, 5/5 EHL, 5/5 FHL Sensation: Sensation intact to light touch in superficial and deep peroneal, saphenous, sural, and tibial nerve distributions Vascular: 2+ dorsalis pedis and posterior tibialis pulses, capillary refill <2 seconds, digits warm and well perfused IMAGING I have personally reviewed the imaging studies and my interpretations are: X-ray elbow and forearm demonstrates displaced comminuted fracture of the left olecranon. ASSESSMENT AND PLAN Lashell Mao is a 74 y.o. female patient with: Acute traumatic closed displaced comminuted left olecranon fracture Weight bearing restrictions: Nonweightbearing left upper extremity ED orthopaedic procedures: Patient was closed reduced and placed into a long-arm splint Plan for outpatient operative fixation of left olecranon fracture next Thursday Pain control per ED/Primary Dispo: Per ED Paul Bennett MD PGY-1, Orthopaedic Surgery [facility] [1] No past medical history on file. [2] Current Facility-Administered Medications: acetaminophen (Tylenol) tablet 650 mg, 650 mg, Oral, q4h PRN, Danny Beltran MD, 650 mg at 11/04/242000 ibuprofen tablet 600 mg, 600 mg, Oral, q6h PRN, Danny Beltran MD No current outpatient medications on file. [3] Allergies Allergen Reactions Procaine Palpitations Causes racing-xylocaine also causes same reaction Can use carbocaine [4] No past surgical history on file. [5] No family history on file. Cosigned by Gordon Frye MD at 11/07/2024 11:58 AM EDT Associated attestation - Gordon Frye MD - 11/07/2024 11:58 AM EDT I reviewed the case with the resident/fellow and agree with the plan as documented. Gordon Frye MD 11/07/24 11:58 AM * ED Provider Notes - Krystal Parker PA - 11/04/2024 6:49 PM EDT Images from the original note were not included. -HPI Chief Complaint Patient presents with Fall Patient is a 74-year-old female who presents today, transferred from outside facility for further evaluation for an isolated left olecranon fracture. Patient states that they were up at a [employer] [facility] and [place] when she had a trip and fall, landing on the left elbow. Took a Tylenol at that time and had some lunch. Pain gradually increased to his prompted her to get seen for her elbow pain. She is not on any blood thinners. No loss of consciousness. No head injury or other injuries. States she took Tylenol around 930 and some shortly after arrival. Outside facility did diagnose herwith a olecranon avulsion fracture with some decreased range of motion. Transferred from [facility] by Orthopedics. Patient denies any numbness, tingling, or weakness. History provided by: Patient and medical records interpreter for the deaf used: No Patient History Past Medical History[1] Surgical History[2] Family History[3] Social History[4] Allergies: Allergies[5] Physical Exam ED Triage Vitals Temp Heart Rate Resp BP 11/04/243 11/04/24185211/04/24185211/04/241852 36.3 ??C (97.4 ??F) 65 17 (!) 166/77 SpO2 Temp Source Heart Rate Source Patient Position 11/04/24185211/04/245 -- 11/04/242304 97 % Oral Lying BP Location FiO2 (%) 11/04/242304 -- Right arm Physical Exam Vitals and nursing note reviewed. Constitutional: General: She is not in acute distress. Appearance: She is well-developed. She is not ill-appearing, toxic-appearing or diaphoretic. HENT: Head: Normocephalic and atraumatic. Right Ear: External ear normal. Left Ear: External ear normal. Nose: Nose normal. No rhinorrhea. Mouth/Throat: Mouth: Mucous membranes are moist. Eyes: General: No scleral icterus. Extraocular Movements: Extraocular movements intact. Conjunctiva/sclera: Conjunctivae normal. Pupils: Pupils are equal, round, and reactive to light. Cardiovascular: Comments: Well-perfused. Non-cyanotic. Pulmonary: Effort: Pulmonary effort is normal. No accessory muscle usage or respiratory distress. Abdominal: General: Abdomen is flat. There is no distension. Tenderness: There is no abdominal tenderness. Musculoskeletal: General: Swelling and tenderness present. Cervical back: Normal range of motion. Right lower leg: No edema. Left lower leg: No edema. Comments: Left elbow with decreased flexion. Nearly 180?? of extension. Neurovascularly intact distally. Bruising to posterior aspect of the elbow, but not open. Skin: General: Skin is warm and dry. Capillary Refill: Capillary refill takes less than 2 seconds. Coloration: Skin is not jaundiced. Findings: Bruising present. Neurological: General: No focal deficit present. Mental Status: She is alert and oriented to person, place, and time. GCS: GCS eye subscore is 4. GCS verbal subscore is 5. GCS motor subscore is 6. Sensory: No sensory deficit. Motor: No weakness. Gait: Gait is intact. Psychiatric: Attention and Perception: Attention normal. Mood and Affect: Mood and affect normal. Speech: Speech normal. Behavior: Behavior is cooperative. EASI ?? Total Score: 0 Umm Coma Scale Score: 15 Mini Nutritional Screening Score : 14 TRST Assessment Total: 1 ED Course & MDM -Assessment: Social Determinates of Health Risks (including Economic Stability, Education and level of understanding, Healthcare access and quality and concerning social factors): None identified on this visit EED COURSE DDX: Based on history and physical exam, my differential diagnosis included olecranon fracture, avulsion fracture, neurovascular injury, contusion, abrasion. Ruling out the most morbid conditions drove my clinical assessment. Labs: Labs Reviewed BASIC METABOLIC PANEL, PLASMA - Abnormal Result Value Glucose, Plasma 118 (*) BUN, Plasma 11 Creatinine, Plasma 0.71 BUN/Creatinine Ratio 15 Sodium, Plasma 141 Potassium, Plasma 3.9 Chloride, Plasma 105 CO2, Plasma 23 Anion Gap 13 Total Calcium, Plasma 9.5 eGFRcr 89.9 CBC W/O DIFFERENTIAL - Normal WBC Count 8.82 RBC Count 4.40 HGB 13.4 HCT 39.9 Platelet Count 226 MCV 91 MCH 30.5 MCHC 33.6 RDW 13.2 MPV 12.0 nRBC 0.0 PROTHROMBIN TIME(PT) / INR - Normal Prothrombin Time 13.6 INR 1.0 Narrative: OPTIMAL INR RANGES FOR PATIENT ON ORAL ANTICOAGULANT THERAPY Prevention of venous thromboembolism INR 2.0 to 3.0 In patients with heart disease: Atrial fibrillation INR 2.0 to 3.0 Valvular heart disease INR 2.0 to 3.0 Tissue heart valves INR 2.0 to 3.0 Mechanical prosthetic valves INR 2.5 to 3.5 Prevention of recurrent PR INR 2.5 to 3.5 TYPE AND SCREEN ABO/Rh O Negative Antibody Screen Negative Specimen Expiration 11/08/2024 23:59 HEPATITIS C ANTIBODY - ED W/REFLEX TO HCV QUANT PCR ED PROTOCOL HIV 1/2 ANTIBODY/ANTIGEN SCREEN W/REFLEX TO HIV 1/2 ANTIBODY DIFFERENTIATION Narrative: The following orders were created for panel order ED Protocol - HIV 1/2 Antibody/Antigen Screen. Procedure Abnormality Status --------- ------ ED HIV 1/2 Antibody/Anti...[[id number]] In process Please view results for these tests on the individual orders. ED HIV 1/2 ANTIBODY/ANTIGEN SCREEN WITH REFLEX TO HIV I/II DIFFERENTIATION Rads: XR Elbow Left 3+ Views Final Result Interval splinting of a comminuted and displaced fracture of the left olecranon process proximal ulna. No significant interval change in alignment. CRITICAL RESULT: No. COMMUNICATION: Per this written report. By electronically signing this report, I, the attending physician, attest that I have personally reviewed the images/data for the above examination(s) and agree with the final edited report. Drafted by Jase De La Cruz MD on 11/05/2024 3:30 AM Final report signed by Jan Bhardwaj MD on 11/05/2024 3:37 AM XR Elbow Left 3+ Views Final Result Displaced comminuted fracture of the left olecranon process and proximal ulna CRITICAL RESULT: No. COMMUNICATION: Per this written report. Drafted by Alan Haines MD on 11/05/2024 12:17 AM Final report signed by Alan Haines MD on 11/05/2024 12:21 AM XR Humerus Left 2+ Views Final Result Displaced comminuted fracture of the left olecranon process and proximal ulna CRITICAL RESULT: No. COMMUNICATION: Per this written report. Drafted by Alan Haines MD on 11/05/2024 12:17 AM Final report signed by Alan Haines MD on 11/05/2024 12:21 AM XR Forearm Left 2 Views Final Result Displaced comminuted fracture of the left olecranon process and proximal ulna CRITICAL RESULT: No. COMMUNICATION: Per this written report. Drafted by Alan Haines MD on 11/05/2024 12:17 AM Final report signed by Alan Haines MD on 11/05/2024 12:21 AM XR Wrist Left 3+ Views Final Result Displaced comminuted fracture of the left olecranon process and proximal ulna CRITICAL RESULT: No. COMMUNICATION: Per this written report. Drafted by Alan Haines MD on 11/05/2024 12:17 AM Final report signed by Alan Haines MD on 11/05/2024 12:21 AM XR Shoulder Left 2+ Views Final Result Displaced comminuted fracture of the left olecranon process and proximal ulna CRITICAL RESULT: No. COMMUNICATION: Per this written report. Drafted by Alan Haines MD on 11/05/2024 12:17 AM Final report signed by Alan Haines MD on 11/05/2024 12:21 AM MDM NARRATIVE: Patient is a 74-year-old female, transfer from outside facility due to olecranon avulsion fracture. Patient was seen and evaluated by the orthopedics team who did splint her and then on post in her for operating room in the morning probably. Patient last by mouth was at midnight herein the department. Pain controlled with some Tylenol. No loss of consciousness. No blood thinners. Denies any other concerns or complaints. Small abrasion to the knee, but up-to-date on her tetanus. Clinical Impressions as of 11/05/24 0347 Closed fracture of olecranon process of left ulna, initial encounter Fall, initial encounter DIAGNOSIS Final diagnoses: [S52.022A] Closed fracture of olecranon process of left ulna, initial encounter [W19.XXXA] Fall, initial encounter New Prescriptions No medications on file Orders Placed This Encounter Procedures XR Elbow Left 3+ Views XR Humerus Left 2+ Views XR Forearm Left 2 Views XR Wrist Left 3+ Views XR Shoulder Left 2+ Views XR Chest 1 View XR Elbow Left 3+ Views Basic Metabolic Panel, Plasma CBC W/O Differential Prothrombin Time/INR Type and Screen Hepatitis C Antibody - ED ED Protocol - HIV 1/2 Antibody/Antigen Screen ED HIV 1/2 Antibody/Antigen Screen w/Reflex to HIV 1/2 Differentiation NPO diet Apply ice to affected area Consult to Orthopaedics Surgery ECG Adult ED Medication Administration from 11/04/2024 1625 to 11/05/2024 0347 Date/Time Order Dose Route Action 11/04/20242000 EDT acetaminophen (Tylenol) tablet 650 mg 650 mg Oral Given 11/05/2024 0242 EDT acetaminophen (Tylenol) tablet 650 mg 650 mg Oral Given Disposition Admit Krystal Parker PA-C EMR Dragon/Field Gauger disclaimer: Much of this encounter note is an electronic hair boiler operator of spoken language to printed text. Electronic hair boiler operator of spoken language may permit erroneous, or at times, nonsensical words or phrases to be inadvertently transcribed. Although I have reviewed the note for such errors, some may still exist. Please do not hesitate to reach out to me for clarification. Krystal Parker PA 11/05/247 [1] No past medical history on file. [2] No past surgical history on file. [3] No family history on file. [4] [5] Allergies Allergen Reactions Procaine Palpitations Causes racing-xylocaine also causes same reaction Can use carbocaine Krystal Parker PA 11/05/24346 Cosigned by Danny Beltran MD at 11/05/2024 3:49 PM EDT Associated attestation - Danny Beltran MD - 11/05/2024 3:49 PM EDT I attest to being involved in providing substantive part of the medical decision making in patient care. * ED Triage Notes - Joya Gómez RN - 11/04/2024 6:49 PM EDT Pt tripped on the sidewalk and landed on left elbow. Pt sent from OSH for left elbow fx. No BT. Pt GCS 15 upon arrival * Progress Notes - Jarett Corley MD - 11/04/2024 6:49 PM EDT Images from the original note were not included. ED TRANSFER OF CARE NOTE Transferring provider: Elena Transferring attending: Helena JOHN Time: 9:43 AM I received sign-out and accepted care of this patient from the previous ED providers caring for this patient. I reviewed the patient's history, exam, work- up, and treatment plan up to this point. Please see the primary ED Provider Note for complete elements of the history, physical exam, and ED course. PERTINENT HISTORY: In brief, Lashell Mao is a 74 y.o. female who presented to the ED for evaluation of fall. PENDING: Plan was initially for patient to be admitted for operative intervention left olecranon fracture. After evaluation by Orthopedic surgery on morning rounds, they recommended plan for operative intervention on Wednesday 11/08. Patient was agreeable with this plan. Upon my assessment, patient is well- appearing and in no acute distress. Patient has splint on of left upper extremity. Patient's pain is well-controlled at this time. Patient feels comfortable tolerating ADLs at home. Patient has already been ambulating here in the ED and able to brush her teeth adult difficulty. Patient states that she we will plan to go home where can help assist her with any of her needs. Discussed return precautions with the patient. Patient will have outpatient surgery with orthopedics on 11/08. ED Medication Administration from 11/04/2024 1625 to 11/05/2024 0943 Date/Time Order Dose Route Action 11/04/20242000 EDT acetaminophen (Tylenol) tablet 650 mg 650 mg Oral Given 11/05/2024 0242 EDT acetaminophen (Tylenol) tablet 650 mg 650 mg Oral Given ED COURSE: Clinical Impressions as of 11/05/24 0943 Closed fracture of olecranon process of left ulna, initial encounter Fall, initial encounter Ultimately, this patient Was discharged Home (Discharge) The primary encounter diagnosis was Closed fracture of olecranon process of left ulna, initial encounter. A diagnosis of Fall, initial encounter was also pertinent to this visit. . Patient was counseled on the diagnoses. Discharge medications if any are listed below. Listed medications are thought be either curative for listed diagnoses or will help control ongoing symptoms. Patient is requested to follow up with Orthopedics in order to obtain specialty care and outpatient surgery. Instructions on follow up as well as precautions to return to the ER provided verbally by the EM provider, as well as written in patients discharge education packet. ED Prescriptions None Discharge Instructions You were seen and evaluated in the Emergency Department. Please return to ED if your symptoms worsen, change in location, change in severity, new symptoms develop or if you become concerned for your health. Please follow-up with orthopedic surgery as plan for outpatient surgery on Wednesday 11/08. TakeTylenol every 6 hours as needed for pain. Use sling as needed for comfort. Disposition Discharge Follow-Ups: Follow up with [facility] (Orthopaedic Surgery) Discharge Orders Discharge Ambulatory referral to Orthopaedic Surgery Authorized - Jarett Corley MD Cosigned by Adilene Malik MD at 11/06/2024 7:15 AM EDT Associated attestation - Adilene Malik MD - 11/06/2024 7:15 AM EDT Seen by resident only. documented in this encounter Plan of Treatment Scheduled Referrals Name Type Priority Associated Diagnoses Order Schedule Discharge Ambulatory referral to Orthopaedic Surgery Outpatient Referral Routine Closed fracture of olecranon process of left ulna, initial encounter 1 Occurrences starting 11/05/2024 until 05/09/2026 documented as of this encounter Procedures Procedure Name Priority Date/Time Associated Diagnosis Comments XR CHEST 1 VIEW Routine 11/05/2024 6:38 AM EDT ED HIV 1/2 ANTIBODY/ANTIGEN SCREEN WITH REFLEX TO HIV I/II DIFFERENTIATION Routine 11/05/2024 2:46 AM EDT ED PROTOCOL HIV 1/2 ANTIBODY/ANTIGEN SCREEN W/REFLEX TO HIV 1/2 ANTIBODY DIFFERENTIATION Routine 11/05/2024 2:46 AM EDT HEPATITIS C ANTIBODY - ED W/REFLEX TO HCV QUANT PCR Routine 11/05/2024 2:46 AM EDT PROTHROMBIN TIME(PT) / INR Routine 11/05/2024 2:46 AM EDT CBC W/O DIFFERENTIAL Routine 11/05/2024 2:46 AM EDT TYPE AND SCREEN Routine 11/05/2024 2:46 AM EDT BASIC METABOLIC PANEL, PLASMA Routine 11/05/2024 2:46 AM EDT XR ELBOW LEFT 3+ VIEWS STAT 2:20 AM EDT ECG ADULT Routine 11/05/2024 1:53 AM EDT XR WRIST LEFT 3+ VIEWS STAT 12:14 AM EDT XR FOREARM LEFT 2 VIEWS STAT 11/06/19 12:14 AM EDT XR ELBOW LEFT 3+ VIEWS STAT 12:14 AM EDT XR HUMERUS LEFT 2+ VIEWS STAT 11/05/2024 12:14 AM EDT XR SHOULDER LEFT 2+ VIEWS STAT 11/05/2024 12:14 AM EDT documented in this encounter Results * XR Chest 1 View (11/05/2024 6:38 AM EDT) Anatomical Region Laterality Modality Chest Digital Radiogra phy Impressions 11/05/2024 6:44 AM EDT No acute findings. CRITICAL RESULT: No. COMMUNICATION: Per this written report. By electronically signing this report, I, the attending physician, attest that I have personally reviewed the images/data for the above examination(s) and agree with the final edited report. Drafted by Jase De La Cruz MD on 11/05/2024 6:41 AM Final report signed by Jan Bhardwaj MD on 11/05/2024 6:44 AM Narrative 11/05/2024 6:44 AM EDT CLINICAL INDICATION: pre-op TECHNIQUE: XR CHEST 1 VIEW COMPARISON: None. FINDINGS: Supine technique The cardiac and mediastinal contours are within normal limits. No focal consolidation, pleural effusion or pneumothorax. Eventration of the right hemidiaphragm. No acute osseous abnormality. Procedure Note Jan Bhardwaj MD - 11/05/2024 CLINICAL INDICATION: pre-op TECHNIQUE: XR CHEST 1 VIEW COMPARISON: None. FINDINGS: Supine technique The cardiac and mediastinal contours are within normal limits. No focalconsolidation, pleural effusion or pneumothorax. Eventration of the righthemidiaphragm. No acute osseous abnormality. IMPRESSION: No acute findings. CRITICAL RESULT: No. COMMUNICATION: Per this written report. By electronically signing this report, I, the attending physician, attestthat I have personally reviewed the images/data for the aboveexamination(s) and agree with the final edited report. Drafted by Jase De La Cruz MD on 11/05/2024 6:41 AM Final report signed by Jan Bhardwaj MD on 11/05/2024 6:44 AM Result Isacc Frye MD IMG XR PROCEDURES Final Result * ED HIV 1/2 Antibody/Antigen Screen w/Reflex to HIV 1/2 Differentiation (11/05/2024 2:46 AM EDT) HIV 1 & 2 Antibody/Antigen Screen Non Reactive Non Reactive 11/05/2024 3:49 AM EDT [facility] Comment:Screening for HIV 1 & 2 antibodies, and P24 antigen is NONREACTIVE. No confirmatory testing is required. Blood Venous blood specimen / Unknown Venipuncture / Unknown 11/05/2024 2:46 AM EDT 11/05/2024 3:07 AM EDT Result Isacc Frye MD LAB BLOOD ORDERABLES Final Resul t Performing Organization Address City/State/[facility] Co de Phone Number [facility] [address] [place] [address] * Hepatitis C Antibody - ED (11/05/2024 2:46 AM EDT) Hepatitis C Antibody Negative Negative 11/05/2024 3:49 AM EDT [facility] Blood Venous blood specimen / Unknown Venipuncture / Unknown 11/05/2024 2:46 AM EDT 11/05/2024 3:07 AM EDT us Gordon Frye MD LAB BLOOD ORDERABLES Final Resul t Performing Organization Address City/State/[facility] Co de Phone Number [facility] [address] [place] [address] * Type and Screen (11/05/2024 2:46 AM EDT) ABO/Rh O Negative 11/05/2024 1:23 AM EDT BLOOD BANK Antibody Screen Negative 11/05/2024 1:23 AM EDT BLOOD BANK Specimen Expiration 11/08/2024 23:59 11/05/2024 1:23 AM EDT BLOOD BANK Blood Venous blood specimen / Unknown Venipuncture / Unknown 11/05/2024 2:46 AM EDT 11/05/2024 3:06 AM EDT us Gordon Frye MD LAB BLOOD BANK TEST ORDERABLES F inal Result Performing Organization Address [facility] de Phone Number BLOOD BANK [address] [place] [address], * Prothrombin Time/INR (11/05/2024 2:46 AM EDT) Prothrombin Time 13.6 12.0 - 14.3 sec 11/05/2024 3:06 AM EDT [facility] INR 1.0 0.9 - 1.1 11/05/2024 3:06 AM EDT [facility] Blood Venous blood specimen / Unknown Venipuncture / Unknown 11/05/2024 2:46 AM EDT 11/05/2024 2:53 AM EDT Narrative [facility] - 11/05/2024 3:06 AM EDT OPTIMAL INR RANGES FOR PATIENT ON ORAL ANTICOAGULANT THERAPY Prevention of venous thromboembolism INR 2.0 to 3.0 In patients with heart disease: Atrial fibrillation INR 2.0 to 3.0 Valvular heart disease INR 2.0 to 3.0 Tissue heart valves INR 2.0 to 3.0 Mechanical prosthetic valves INR 2.5 to 3.5 Prevention of recurrent PR INR 2.5 to 3.5 us Gordon Frye MD LAB BLOOD ORDERABLES Final Resul t Performing Organization Address [facility] Co de Phone Number [facility] [address] [place] [address] * CBC W/O Differential (11/05/2024 2:46 AM EDT) WBC Count 8.82 3.70 - 10.30 10*3/uL LAB HEMATOLOGY METHOD 11/05/2024 2:54 AM EDT [facility] RBC Count 4.40 3.90 - 5.20 10*6/uL LAB HEMATOLOGY METHOD 11/05/2024 2:54 AM EDT [facility] HGB 13.4 11.2 - 15.7 g/dL LAB HEMATOLOGY METHOD 11/05/2024 2:54 AM EDT [facility] HCT 39.9 34.0 - 45.0 % LAB HEMATOLOGY METHOD 11/05/2024 2:54 AM EDT [facility] Platelet Count 226 155 - 369 10*3/uL LAB HEMATOLOGY METHOD 11/05/2024 2:54 AM EDT [facility] MCV 91 79 - 98 fL LAB HEMATOLOGY METHOD 11/05/2024 2:54 AM EDT [facility] MCH 30.5 26.0 - 32.0 pg LAB HEMATOLOGY METHOD 11/05/2024 2:54 AM EDT [facility] MCHC 33.6 30.7 - 35.5 g/dL LAB HEMATOLOGY METHOD 11/05/2024 2:54 AM EDT [facility] RDW 13.2 11.5 - 14.5 % LAB HEMATOLOGY METHOD 11/05/2024 2:54 AM EDT [facility] MPV 12.0 8.8 - 12.5 fL LAB HEMATOLOGY METHOD 11/05/2024 2:54 AM EDT [facility] nRBC 0.0 <=0.0 per 100 WBCs LAB HEMATOLOGY METHOD 11/05/2024 2:54 AM EDT [facility] Blood Venous blood specimen / Unknown Venipuncture / Unknown 11/05/2024 2:46 AM EDT 11/05/2024 2:53 AM EDT us Gordon Frye MD LAB BLOOD ORDERABLES Final Resul t [facility] [address] [place] [address] * (ABNORMAL) Basic Metabolic Panel, Plasma (11/05/2024 2:46 AM EDT) Glucose, Plasma 118(H) 74 - 99 mg/dL 11/05/2024 3:36 AM EDT [facility] BUN, Plasma 11 8 - 23 mg/dL 11/05/2024 3:36 AM EDT [facility] Creatinine, Plasma 0.71 0.60 - 1.10 mg/dL 11/05/2024 3:36 AM EDT [facility] BUN/Creatinine Ratio 15 11/05/2024 3:36 AM EDT [facility] Sodium, Plasma 141 136 - 145 mmol/L 11/05/2024 3:36 AM EDT [facility] Potassium, Plasma 3.9 3.6 - 4.9 mmol/L 11/05/2024 3:36 AM EDT [facility] Chloride, Plasma 105 97 - 107 mmol/L 11/05/2024 3:36 AM EDT [facility] CO2, Plasma 23 22 - 29 mmol/L 11/05/2024 3:36 AM EDT [facility] Anion Gap 13 6 - 16 mmol/L 11/05/2024 3:36 AM EDT [facility] Total Calcium, Plasma 9.5 8.9 - 10.2 mg/dL 11/05/2024 3:36 AM EDT [facility] eGFRcr 89.9 mL/min/1.7 3m*2 11/05/2024 3:36 AM EDT [facility] Comment:Reported eGFRcr in m L/min/1.73m2 is based the CKD-EPI 2020 equation that does not use a race coefficient. Blood Venous blood specimen / Unknown Venipuncture / Unknown 11/05/2024 2:46 AM EDT 11/05/2024 3:07 AM EDT us Gordon Frye MD LAB BLOOD ORDERABLES Final Resul t [facility] [address] [place] [address] * XR Elbow Left 3+ Views (11/05/2024 2:20 AM EDT) Anatomical Region Laterality Modality Upper Extremities, Elbow Left Digital Radiography Impressions 11/05/2024 3:37 AM EDT Interval splinting of a comminuted and displaced fracture of the left olecranon process proximal ulna. No significant interval change in alignment. CRITICAL RESULT: No. COMMUNICATION: Per this written report. By electronically signing this report, I, the attending physician, attest that I have personally reviewed the images/data for the above examination(s) and agree with the final edited report. Drafted by Jsae De La Cruz MD on 11/05/2024 3:30 AM Final report signed by Jan Bhardwaj MD on 11/05/2024 3:37 AM Narrative 11/05/2024 3:37 AM EDT CLINICAL INDICATION: post-splint TECHNIQUE: XR ELBOW LEFT 3+ VIEWS COMPARISON: Radiograph of the elbow 2 hours prior FINDINGS: Interval splinting of a comminuted and displaced fracture of the left olecranon process and proximal ulna without significant interval change in alignment. Procedure Note Jan Bhardwaj MD - 11/05/2024 CLINICAL INDICATION: post-splint TECHNIQUE: XR ELBOW LEFT 3+ VIEWS COMPARISON: Radiograph of the elbow 2 hours prior FINDINGS: Interval splinting of a comminuted and displaced fracture of the leftolecranon process and proximal ulna without significant interval change inalignment. IMPRESSION: Interval splinting of a comminuted and displaced fracture of the leftolecranon process proximal ulna. No significant interval change inalignment. CRITICAL RESULT: No. COMMUNICATION: Per this written report. By electronically signing this report, I, the attending physician, attestthat I have personally reviewed the images/data for the aboveexamination(s) and agree with the final edited report. Drafted by Jase De La Cruz MD on 11/05/2024 3:30 AM Final report signed by Jan Bhardwaj MD on 11/05/2024 3:37 AM Gordon Frye MD IMG XR PROCEDURES Final Result * ECG Adult (11/05/2024 1:53 AM EDT) EKG DIAGNOSIS CLASS Normal MUSE ECG Ventricular Rate 67 BPM MUSE ECG Atrial Rate 67 BPM MUSE ECG RI Interval 118 ms MUSE ECG QRSD Interval 82 ms MUSE ECG QT Interval 436 ms MUSE ECG QTC Interval 460 ms MUSE ECG P [place] 12 degrees MUSE ECG R [place] 58 degrees MUSE ECG T Wave [place] 72 degrees MUSE ECG Diagnosis Normal sinus rhythm MUSE ECG Diagnosis Normal ECG MUSE ECG Diagnosis MUSE ECG Diagnosis Confirmed by Osvaldo Ruiz ([id number]) on 11/05/2024 9:59:05 AM MUSE ECG 11/05/2024 1:53 AM EDT 11/05/2024 9:59 AM EDT us Gordon Frye MD ECG ORDERABLES Final Result MUSE ECG * XR Shoulder Left 2+ Views (11/05/2024 12:14 AM EDT) Anatomical Region Laterality Modality Upper Extremities, Shoulder Left Digi rosemary Radiography Impressions 11/05/2024 12:21 AM EDT Displaced comminuted fracture of the left olecranon process and proximal ulna CRITICAL RESULT: No. COMMUNICATION: Per this written report. Drafted by Alan Haines MD on 11/05/2024 12:17 AM Final report signed by Alan Haines MD on 11/05/2024 12:21 AM Narrative 11/05/2024 12:21 AM EDT CLINICAL INDICATION: LUE fx TECHNIQUE: XR SHOULDER LEFT 2+ VIEWS, XR WRIST LEFT 3+ VIEWS, XR FOREARM LEFT 2 VIEWS, XR HUMERUS LEFT 2+ VIEWS, XR ELBOW LEFT 3+ VIEWS COMPARISON: None. FINDINGS: Left shoulder and humerus: No acute fracture or malalignment. Unremarkable soft tissues. Left elbow and forearm: Displaced comminuted fracture involves the base of the olecranon process with proximal this traction of the proximal fracture fragment with overlying soft tissue swelling and displaced anterior and posterior fat pad. Longitudinal fracture of the proximal humerus at the junction of the olecranon process with the base of the or coracoid process. Radial head is located. Mid and distal aspect of the forearm has an unremarkable appearance. Left wrist: No acute fracture or malalignment. Unremarkable soft tissues. Procedure Note Alan Haines MD - 11/05/2024 CLINICAL INDICATION: LUE fx TECHNIQUE: XR SHOULDER LEFT 2+ VIEWS, XR WRIST LEFT 3+ VIEWS, XR FOREARM LEFT 2VIEWS, XR HUMERUS LEFT 2+ VIEWS, XR ELBOW LEFT 3+ VIEWS COMPARISON: None. FINDINGS: Left shoulder and humerus: No acute fracture or malalignment. Unremarkablesoft tissues. Left elbow and forearm: Displaced comminuted fracture involves the base ofthe olecranon process with proximal this traction of the proximal fracturefragment with overlying soft tissue swelling and displaced anterior andposterior fat pad. Longitudinal fracture of the proximal humerus at thejunction of the olecranon process with the base of the or coracoidprocess. Radial head is located. Mid and distal aspect of the forearm hasan unremarkable appearance. Left wrist: No acute fracture or malalignment. Unremarkable softtissues. IMPRESSION: Displaced comminuted fracture of the left olecranon process and proximalulna CRITICAL RESULT: No. COMMUNICATION: Per this written report. Drafted by Alan Haines MD on 11/05/2024 12:17 AM Final report signed by Alan Haines MD on 11/05/2024 12:21 AM Gordon Frye MD IMG XR PROCEDURES Final Result * XR Wrist Left 3+ Views (11/05/2024 12:14 AM EDT) Anatomical Region Laterality Modality Upper Extremities, Wrist Left Digital Radiography Impressions 11/05/2024 12:21 AM EDT Displaced comminuted fracture of the left olecranon process and proximal ulna CRITICAL RESULT: No. COMMUNICATION: Per this written report. Drafted by Alan Haines MD on 11/05/2024 12:17 AM Final report signed by Alan Haines MD on 11/05/2024 12:21 AM Narrative 11/05/2024 12:21 AM EDT CLINICAL INDICATION: LUE fx TECHNIQUE: XR SHOULDER LEFT 2+ VIEWS, XR WRIST LEFT 3+ VIEWS, XR FOREARM LEFT 2 VIEWS, XR HUMERUS LEFT 2+ VIEWS, XR ELBOW LEFT 3+ VIEWS COMPARISON: None. FINDINGS: Left shoulder and humerus: No acute fracture or malalignment. Unremarkable soft tissues. Left elbow and forearm: Displaced comminuted fracture involves the base of the olecranon process with proximal this traction of the proximal fracture fragment with overlying soft tissue swelling and displaced anterior and posterior fat pad. Longitudinal fracture of the proximal humerus at the junction of the olecranon process with the base of the or coracoid process. Radial head is located. Mid and distal aspect of the forearm has an unremarkable appearance. Left wrist: No acute fracture or malalignment. Unremarkable soft tissues. Procedure Note Alan Haines MD - 11/05/2024 CLINICAL INDICATION: LUE fx TECHNIQUE: XR SHOULDER LEFT 2+ VIEWS, XR WRIST LEFT 3+ VIEWS, XR FOREARM LEFT 2VIEWS, XR HUMERUS LEFT 2+ VIEWS, XR ELBOW LEFT 3+ VIEWS COMPARISON: None. FINDINGS: Left shoulder and humerus: No acute fracture or malalignment. Unremarkablesoft tissues. Left elbow and forearm: Displaced comminuted fracture involves the base ofthe olecranon process with proximal this traction of the proximal fracturefragment with overlying soft tissue swelling and displaced anterior andposterior fat pad. Longitudinal fracture of the proximal humerus at thejunction of the olecranon process with the base of the or coracoidprocess. Radial head is located. Mid and distal aspect of the forearm hasan unremarkable appearance. Left wrist: No acute fracture or malalignment. Unremarkable softtissues. IMPRESSION: Displaced comminuted fracture of the left olecranon process and proximalulna CRITICAL RESULT: No. COMMUNICATION: Per this written report. Drafted by Alan Haines MD on 11/05/2024 12:17 AM Final report signed by Alan Haines MD on 11/05/2024 12:21 AM Gordon Frye MD IM XR PROCEDURES Final Result * XR Forearm Left 2 Views (11/05/2024 12:14 AM EDT) Anatomical Region Laterality Modality Upper Extremities, Forearm Left Digit al Radiography Impressions 11/05/2024 12:21 AM EDT Displaced comminuted fracture of the left olecranon process and proximal ulna CRITICAL RESULT: No. COMMUNICATION: Per this written report. Drafted by Alan Haines MD on 11/05/2024 12:17 AM Final report signed by Alan Haines MD on 11/05/2024 12:21 AM Narrative 11/05/2024 12:21 AM EDT CLINICAL INDICATION: LUE fx TECHNIQUE: XR SHOULDER LEFT 2+ VIEWS, XR WRIST LEFT 3+ VIEWS, XR FOREARM LEFT 2 VIEWS, XR HUMERUS LEFT 2+ VIEWS, XR ELBOW LEFT 3+ VIEWS COMPARISON: None. FINDINGS: Left shoulder and humerus: No acute fracture or malalignment. Unremarkable soft tissues. Left elbow and forearm: Displaced comminuted fracture involves the base of the olecranon process with proximal this traction of the proximal fracture fragment with overlying soft tissue swelling and displaced anterior and posterior fat pad. Longitudinal fracture of the proximal humerus at the junction of the olecranon process with the base of the or coracoid process. Radial head is located. Mid and distal aspect of the forearm has an unremarkable appearance. Left wrist: No acute fracture or malalignment. Unremarkable soft tissues. Procedure Note Alan Haines MD - 11/05/2024 CLINICAL INDICATION: LUE fx TECHNIQUE: XR SHOULDER LEFT 2+ VIEWS, XR WRIST LEFT 3+ VIEWS, XR FOREARM LEFT 2VIEWS, XR HUMERUS LEFT 2+ VIEWS, XR ELBOW LEFT 3+ VIEWS COMPARISON: None. FINDINGS: Left shoulder and humerus: No acute fracture or malalignment. Unremarkablesoft tissues. Left elbow and forearm: Displaced comminuted fracture involves the base ofthe olecranon process with proximal this traction of the proximal fracturefragment with overlying soft tissue swelling and displaced anterior andposterior fat pad. Longitudinal fracture of the proximal humerus at thejunction of the olecranon process with the base of the or coracoidprocess. Radial head is located. Mid and distal aspect of the forearm hasan unremarkable appearance. Left wrist: No acute fracture or malalignment. Unremarkable softtissues. IMPRESSION: Displaced comminuted fracture of the left olecranon process and proximalulna CRITICAL RESULT: No. COMMUNICATION: Per this written report. Drafted by Alan Haines MD on 11/05/2024 12:17 AM Final report signed by Alan Haines MD on 11/05/2024 12:21 AM Gordon Frye MD IMG XR PROCEDURES Final Result * XR Humerus Left 2+ Views (11/05/2024 12:14 AM EDT) Anatomical Region Laterality Modality Upper Extremities, Humerus Left Digit al Radiography Impressions 11/05/2024 12:21 AM EDT Displaced comminuted fracture of the left olecranon process and proximal ulna CRITICAL RESULT: No. COMMUNICATION: Per this written report. Drafted by Alan Haines MD on 11/05/2024 12:17 AM Final report signed by Alan Haines MD on 11/05/2024 12:21 AM Narrative 11/05/2024 12:21 AM EDT CLINICAL INDICATION: LUE fx TECHNIQUE: XR SHOULDER LEFT 2+ VIEWS, XR WRIST LEFT 3+ VIEWS, XR FOREARM LEFT 2 VIEWS, XR HUMERUS LEFT 2+ VIEWS, XR ELBOW LEFT 3+ VIEWS COMPARISON: None. FINDINGS: Left shoulder and humerus: No acute fracture or malalignment. Unremarkable soft tissues. Left elbow and forearm: Displaced comminuted fracture involves the base of the olecranon process with proximal this traction of the proximal fracture fragment with overlying soft tissue swelling and displaced anterior and posterior fat pad. Longitudinal fracture of the proximal humerus at the junction of the olecranon process with the base of the or coracoid process. Radial head is located. Mid and distal aspect of the forearm has an unremarkable appearance. Left wrist: No acute fracture or malalignment. Unremarkable soft tissues. Procedure Note Alan Haines MD - 11/05/2024 CLINICAL INDICATION: LUE fx TECHNIQUE: XR SHOULDER LEFT 2+ VIEWS, XR WRIST LEFT 3+ VIEWS, XR FOREARM LEFT 2VIEWS, XR HUMERUS LEFT 2+ VIEWS, XR ELBOW LEFT 3+ VIEWS COMPARISON: None. FINDINGS: Left shoulder and humerus: No acute fracture or malalignment. Unremarkablesoft tissues. Left elbow and forearm: Displaced comminuted fracture involves the base ofthe olecranon process with proximal this traction of the proximal fracturefragment with overlying soft tissue swelling and displaced anterior andposterior fat pad. Longitudinal fracture of the proximal humerus at thejunction of the olecranon process with the base of the or coracoidprocess. Radial head is located. Mid and distal aspect of the forearm hasan unremarkable appearance. Left wrist: No acute fracture or malalignment. Unremarkable softtissues. IMPRESSION: Displaced comminuted fracture of the left olecranon process and proximalulna CRITICAL RESULT: No. COMMUNICATION: Per this written report. Drafted by Alan Haines MD on 11/05/2024 12:17 AM Final report signed by Alan Haines MD on 11/05/2024 12:21 AM Gordon Frye MD IMG XR PROCEDURES Final Result * XR Elbow Left 3+ Views (11/05/2024 12:14 AM EDT) Anatomical Region Laterality Modality Upper Extremities, Elbow Left Digital Radiography Impressions 11/05/2024 12:21 AM EDT Displaced comminuted fracture of the left olecranon process and proximal ulna CRITICAL RESULT: No. COMMUNICATION: Per this written report. Drafted by Alan Haines MD on 11/05/2024 12:17 AM Final report signed by Alan Haines MD on 11/05/2024 12:21 AM Narrative 11/05/2024 12:21 AM EDT CLINICAL INDICATION: LUE fx TECHNIQUE: XR SHOULDER LEFT 2+ VIEWS, XR WRIST LEFT 3+ VIEWS, XR FOREARM LEFT 2 VIEWS, XR HUMERUS LEFT 2+ VIEWS, XR ELBOW LEFT 3+ VIEWS COMPARISON: None. FINDINGS: Left shoulder and humerus: No acute fracture or malalignment. Unremarkable soft tissues. Left elbow and forearm: Displaced comminuted fracture involves the base of the olecranon process with proximal this traction of the proximal fracture fragment with overlying soft tissue swelling and displaced anterior and posterior fat pad. Longitudinal fracture of the proximal humerus at the junction of the olecranon process with the base of the or coracoid process. Radial head is located. Mid and distal aspect of the forearm has an unremarkable appearance. Left wrist: No acute fracture or malalignment. Unremarkable soft tissues. Procedure Note Alan Haines MD - 11/05/2024 CLINICAL INDICATION: LUE fx TECHNIQUE: XR SHOULDER LEFT 2+ VIEWS, XR WRIST LEFT 3+ VIEWS, XR FOREARM LEFT 2VIEWS, XR HUMERUS LEFT 2+ VIEWS, XR ELBOW LEFT 3+ VIEWS COMPARISON: None. FINDINGS: Left shoulder and humerus: No acute fracture or malalignment. Unremarkablesoft tissues. Left elbow and forearm: Displaced comminuted fracture involves the base ofthe olecranon process with proximal this traction of the proximal fracturefragment with overlying soft tissue swelling and displaced anterior andposterior fat pad. Longitudinal fracture of the proximal humerus at thejunction of the olecranon process with the base of the or coracoidprocess. Radial head is located. Mid and distal aspect of the forearm hasan unremarkable appearance. Left wrist: No acute fracture or malalignment. Unremarkable softtissues. IMPRESSION: Displaced comminuted fracture of the left olecranon process and proximalulna CRITICAL RESULT: No. COMMUNICATION: Per this written report. Drafted by Alan Haines MD on 11/05/2024 12:17 AM Final report signed by Alan Haines MD on 11/05/2024 12:21 AM Gordon Frye MD IMG XR PROCEDURES Final Result documented in this encounter Visit Diagnoses Diagnosis Closed fracture of olecranon process of left ulna, initial encounter- Primary Fall, initial encounter documented in this encounter Administered Medications Inactive Administered Medications - up to 3 most recent administrations Medication Order MAR Action Action Date Dose Rate Site acetaminophen (Tylenol) tablet 650 mg 650 mg, Oral, Every 4 hours PRN, Starting on Thu11/04/24 at 195, Until 11/05/24 at 1211, Routine, mild pain, moderate pain Given 11/05/2024 2:42 AM EDT 650 mg Given 11/04/2024 8:01 PM EDT 650 mg ibuprofen tablet 600 mg 600 mg, Oral, Every 6 hours PRN, Starting on Thu11/04/24 at 1955, Until 11/05/24 at 1211, Routine, mild pain documented in this encounter Active and Recently Administered Medications Times are shown in EDT. PRN Medication Order 11/03/2024 11/04/2024 11/05/2024 acetaminophen (Tylenol) tablet 650 mg 650 mg, Oral, Every 4 hours PRN, Starting on Thu11/04/24 at 1955, Until 11/05/24 at 1211, Routine, mild pain, moderate pain 2000 (Given - Provider: Joya Gómez RN) 241 (Given - Provider: Hanna Marinelli) ibuprofen tablet 600 mg 600 mg, Oral, Every 6 hours PRN, Starting on Thu11/04/24 at 1955, Until 11/05/24 at 1211, Routine, mild pain documented in this encounter Care Teams Lever Miller Relationship Specialty Start Date End Date Pcp, [address] [place] [address] PCP - General Family Medicine 11/05/24 11/05/24 documented as of this encounter
--- OUTSIDE RECORDS SUMMARY | 2024-11-08 10:33 | XMS_ITS | Encounter Summary ---
Author Organization [facility] Address [address] [place] [address] Care Team Providers Care Warehouse Receiving Supervisor Name Role Phone Enmanuel Rg MD Primary Care Provider + [phone] Reason for Visit * Auth/Cert (Routine) Specialty Diagnoses / Procedures Referred By Contac t Referred To Contact Diagnoses Closed fracture of olecranon process of left ulna, initial encounter Closed fracture of olecranon process of left ulna, initial encounter [S52.022A] Procedures NM OPEN TX ULNAR FRACTURE PROX END ORIF, FRACTURE, OLECRANON Raúl Baker MD [address] [address] Phone: tel: fax: [facility] [address] [place] [address] Phone: tel: Referral ID Status Reason Start Date Expiration Date Visits Re quested Visits Authorized [id number] 1 1 Encounter Details Date Type Department Care Team (Latest Contact Info) Description 11/08/2024 10:33 AM EDT - 11/08/2024 8:01 PM EDT Hospital Encounter [facility] [address] [place] [address] Raúl Baker MD [address] [address] Closed fracture of olecranon process of left ulna, initial encounter [S52.022A] (Primary Dx) Discharge Disposition: Home or Self Care Social History Tobacco Use Types Packs/Day Years Used Date Smoking Tobacco: Never Smokeless Tobacco: Never Tobacco Cessation:Counseling Given: Not Answered Alcohol Use Standard Drinks/Week Comments Yes 0 (1 standard drink = 0.6 oz pur e alcohol) social Comments No Sex and Gender Information Value Date Recorded Sex Assigned at Not on file Legal Sex Female 8:18 PM EDT Gender Identity Not on file Sexual Orientation Not on file documented as of this encounter Last Filed Vital Signs Vital Sign Reading Time Taken Comments Blood Pressure 138/87 11/08/2024 7:15 PM EDT Pulse 68 11/08/2024 7:15 PM EDT Temperature 36.7 C (98 F) 11/08/2024 5:45 PM EDT Respiratory Rate 14 11/08/2024 7:15 PM EDT Oxygen Saturation 99% 11/08/2024 7:15 PM EDT Inhaled Oxygen Concentration - - Weight 79.8 kg (176 lb) 11/08/2024 1:40 PM EDT Height 160 cm (5' 3 ) 11/07/2024 10:08 AM EDT Body Mass Index 31.18 11/07/2024 10:08 AM EDT documented in this encounter Functional Status * Calculated C-SSRS Risk Score (Lifetime/Recent) Answer Date of Assessment Author No Risk Indicated 11/08/2024 1:16 PM EDT Yamilet Tapia RN * Question Answer Date of Assessment Author 1. Wish to be (Past 1 Month) No 11/08/2024 1:16 PM EDT Emma Tapia RN 2. Non-Specific Active Suicidal Thoughts (Past 1 Month) No 11/08/2024 1:16 PM EDT Emma Tapia RN 6. Suicidal Behavior (Lifetime) No 11/08/2024 1:16 PM EDT Emma Tapia RN documented as of this encounter Discharge Instructions * Discharge Instructions* Joey Amato MD - 11/08/2024 4:43 PM EDT Postoperative Plan: Patient may be discharged from the PACU once discharge criteria has been met. Postoperative Imaging: XR left elbow Weightbearing: NWB LUE, long arm splint, at 2 week follow up we will remove splint and begin activeflexion with gravity assisted extension Pain control Incision closed with Nylon suture Dressing: Betadine soaked adaptic, 4x4, long arm splint Dressing Changes: none, keep in place until f/u appointment Bathing: can shower, must keep splint/dressing c/d/i, cover with water proof bag, otherwise sponge bath only F/U: Janine Monterroso on 11/24 in [facility] Reasons to call: Feels warm or hot to the touch Is red or dark pink Is tight or swollen and looks shiny Becomes more tender or sore to the touch Wound smells bad Wound is draining pus, bleeding or coming open Temperature is above 101.5 F Pain is not relieved by medications documented in this encounter Medications at Time of Discharge acetaminophen (Tylenol Extra Strength) 500 MG tablet Take 2 tablets by mouth every 8 hours. 100 tablet 11/08/2024 doxycycline (Periostat) 20 MG tablet Take 1 tablet by mouth. 2 times a week 12/23/2023 ibuprofen 400 MG tablet Take 1 tablet by mouth every 6 hours as needed for moderate pain. 50 tablet 11/08/2024 metroNIDAZOLE (Metrocream) 0.75 % cream Apply topically. 2 times a week 01/25/2024 montelukast (Singulair) 4 MG chewable tablet Chew every morning. 10/18/2024 Multiple Vitamin (multivitamin) tablet Take 1 tablet by mouth daily. UNABLE TO FIND Med Name: cbd oil daily senna-docusate sodium (Senokot-S) 8.6-50 MG tablet Take 1 tablet by mouth 2 times a day for 14 days. 28 tablet 11/08/2024 11/22/2024 methocarbamol (Robaxin) 500 MG tablet Take 1 tablet by mouth 4 times a day for 14 days. 56 tablet 11/08/2024 12/21/2024 oxyCODONE (Roxicodone) 5 MG immediate release tablet Take 1 tablet by mouth every 6 hours as needed for severe pain. 20 tablet 11/08/2024 12/21/2024 documented as of this encounter Miscellaneous Notes * Anesthesia PACU Signout - Overbeck, Mushtaq J, DO - 11/08/2024 5:41 PM EDT Patient: Lashell Mao Anesthesia Type: general Vitals Value Taken Time BP 147/64 11/08/24 17:30 Temp 36.6 ??C (97.8 ??F) 11/08/24 16:45 Pulse 68 11/08/24 17:40 Resp 13 11/08/24 17:40 SpO2 100 % 11/08/24 17:40 Vitals shown include unfiled device data. Anesthesia PACU Signout Patient location during evaluation: PACU Patient participation: complete - patient participated Level of consciousness: baseline and awake Pain management: adequate (pain score 0-3) Airway patency: natural airway Hydration status: acceptable PONV: none Cardiovascular status: acceptable and hemodynamically stable Respiratory status: acceptable, spontaneous ventilation, unassisted and nonlabored ventilation Discharge Disposition: home Cosigned by Sharad Kerr MD at 11/08/2024 6:55 PM EDT Associated attestation - Sharad Kerr MD - 11/08/2024 6:55 PM EDT Agree with above assessment and evaluation from resident/KEG INSPECTOR. * Op Note - Raúl Baker MD - 11/08/2024 3:36 PM EDT Operative Note Date: 11/08/24 Location: [facility] Name: Lashell Mao, : 1950, Diagnoses: Pre-op Diagnosis Closed fracture of olecranon process of left ulna, initial encounter Post-op Diagnosis Closed fracture of olecranon process of left ulna, initial encounter Procedure(s): Open reduction internal fixation left proximal ulna fracture (olecranon fracture) Attending Surgeon(s): * Raúl Baker - Primary Lathe Turner(s): * Joey Amato MD - Resident - Assisting Anesthesia: Choice ASA: II Blood Administration: Blood Product Administration History None Estimated Blood Loss: Minimal Drains: * None in log * Implants Type Name Action Serial No. Plate PLATE PROX MELVA ULNA 4H LT - SNA - [id number] Implanted NA Screw SCREW 2.7MM CORTICAL SMALL HEX SELFTAP 44MM - SNA - [id number] Implanted NA Screw SCREW 3.5MM PERIART 2.7MM HEAD SELFTAP 32MM - SNA - [id number] Implanted NA Screw SCREW 3.5MM PERIART 2.7MM HEAD SELFTAP 20MM - SNA - [id number] Implanted NA Wire WIRE JENNIFER TROCAR POINT 1.25MM X 150MM - SNA - [id number] Used, Not Implanted NA Wire WIRE JENNIFER TROCAR POINT 1.6MM x 150MM - SNA - [id number] Implanted NA Specimen: Findings: Displaced and unstable olecranon fracture Indications: Lashell Mao is an 74 y.o. female who is having surgery for Closed fracture of olecranon process of left ulna, initial encounter. Narrative: The patient was identified marked in the preop holding area. The details, risks, benefits, of surgery were discussed. Alternatives to the operative plan were also discussed. Informed consent was obtained from the patient. The patient was taken to the operative suite and surrendered to general anesthesia. The patient was placed prone on a radiolucent table. We prepped and draped the left upper extremityin the usual sterile fashion. A time-out was performed. The entire operative service was in agreement with patient, position, procedure, and side. Perioperative antibiotics were administered within 1hour incision time. We exsanguinated the limb with an Esmarch bandage. We insufflated tourniquet to 250 mm of mercury. Total tourniquet time was a proximally 45 minutes. A dorsal incision was carried out over the proximal ulna. Sharp dissection was carried through skin and subcutaneous tissue. We identified incised the deep fascia in line with the skin incision. Next, we identified the olecranon fracture. We 1st disimpacted and articular segment on the volar radial side of the olecranon. Next, the olecranon segment was reduced and wired provisionally. Next, we selected a 4 hole proximal ulna plate. This was secured provisionally and then applied in tension band fashion including interfragmentary compression through the plate and securing into the diaphyseal ulna distally. Final x-rays demonstrated near anatomic zoroastrian of the olecranon and safe implant placement. We irrigated the incision copiously. Weclosed in layers with nylon the skin. Sterile dressings were applied in addition to a long-arm splint. The patient was awakened successfully and transferred to the PACU in stable condition. I was present for the entire operation. Postop plan: Nonweightbearing left upper extremity Follow up in 2 weeks for suture removal A 2 weeks may begin active flexion gravity assisted extension left elbow Mobility with physical therapy Tertiary survey Pain control Complications: None; patient tolerated the procedure well. Submitted by: Raúl Baker MD - 11/08/2024 * Brief Op Note - Joey Amato MD - 11/08/2024 3:36 PM EDT Date: 11/08/24 Location: [facility] Name: Lashell Adame Mayco, : 1950, Diagnoses: Pre-op Diagnosis Closed fracture of olecranon process of left ulna, initial encounter Post-op Diagnosis Closed fracture of olecranon process of left ulna, initial encounter Procedure(s): Open reduction and internal fixation of right olecranon fracture Attending Surgeon(s): * Raúl Baker - Primary Lathe Turner(s): * Joey Amato MD - Resident - Assisting Anesthesia: Choice ASA: II Blood Administration: Blood Product Administration History None Estimated Blood Loss: 15 mL Drains: * None in log * Implants Type Name Action Serial No. Plate PLATE PROX MELVA ULNA 4H LT - SNA - [id number] Implanted NA Screw SCREW 2.7MM CORTICAL SMALL HEX SELFTAP 44MM - SNA - [id number] Implanted NA Screw SCREW 3.5MM PERIART 2.7MM HEAD SELFTAP 32MM - SNA - [id number] Implanted NA Screw SCREW 3.5MM PERIART 2.7MM HEAD SELFTAP 20MM - SNA - [id number] Implanted NA Wire WIRE JENNIFER TROCAR POINT 1.25MM X 150MM - SNA - [id number] Used, Not Implanted NA Wire WIRE JENNIFER TROCAR POINT 1.6MM x 150MM - [facility] - [id number] Implanted NA Specimen: None Findings: See operative note Postoperative Plan: Patient may be discharged from the PACU once discharge criteria has been met. Postoperative Imaging: XR left elbow Weightbearing: NWB LUE, long arm splint, at 2 week follow up we will remove splint and begin activeflexion with gravity assisted extension Pain control Incision closed with Nylon suture Dressing: Betadine soaked adaptic, 4x4, long arm splint Dressing Changes: none, keep in place until f/u appointment Bathing: can shower, must keep splint/dressing c/d/i, cover with water proof bag, otherwise sponge bath only F/U: Janine Monterroso on 11/24 in [facility] Complications: None; patient tolerated the procedure well. Submitted by: Joey Amato MD - 11/08/2024 Cosigned by Rúal Baker MD at 11/08/2024 5:27 PM EDT * H&P - Joey Amato MD - 11/08/2024 2:29 PM EDT ORTHOPAEDIC SURGERY PRE-OPERATIVE H+P Chief Complaint: Left olecranon fracture History of Present Illness: Lashell Mao is a 74 y.o. female presenting with above complaint and was previously evaluated and deemed a candidate for surgery based on history and physical exam. They are feeling well on day of surgery. No changes to medical history. All questions answered. Past Medical History: has a past medical history of Arthritis, Asthma, and Fractures. Surgical History: has a past surgical history that includes Colonoscopy and Other surgical history. Family History: Family History[1] Social History: reports that she has never smoked. She has never used smokeless tobacco. She reports current alcohol use. She reports that she does not use drugs. Allergies: Biaxin [clarithromycin], Lidocaine, and Procaine Medications: Current Medications[2] Review of systems: negative unless noted in the HPI Physical exam: Last recorded vitals: Blood pressure 128/75, pulse 64, temperature 36.8 ??C (98.2 ??F), temperature source Oral, resp. rate 17, height 1.6 m (5' 3 ), weight 79.8 kg (176 lb), SpO2 96%. refer to nursing notes General: no apparent distress, nonlabored breathing HEENT: speaks clearly, eyes open CV: perfused extremities Respiratory: moves air well, nonlabored breathing left Upper Extremity Inspection: Splint in place, clean, dry intact Motor exam: Motor intact EPL, FPL, FDS, IO Sensory exam: SILT A/M/U/R Vascular exam: Hand WWP with CR <2 sec Refer to anesthesiology H and P for other pertinent physical findings related to surgical preparedness. Assessment/Plan: Closed fracture of olecranon process of left ulna, initial encounter Procedure(s) (LRB): ORIF, FRACTURE, OLECRANON (Left) To OR today with Dr. Baker NPO since midnight Extremity marked Informed consent obtained for surgery Joey Amato MD Orthopaedic Surgery PGY-3 [facility] [1] History reviewed. No pertinent family history. [2] Current Facility-Administered Medications Medication Dose Route Frequency Provider Last Rate Last Admin ipratropium-albuterol (Duo-Neb) 0.5-2.5 mg/3 mL nebulizer solution 3 mL 3 mL Nebulization Once Julio Matthews MD sodium chloride 0.9 % flush 10 mL 10 mL Intravenous q12h Frantz Toure MD And sodium chloride 0.9 % flush 10 mL 10 mL Intravenous PRN Frantz Toure MD Cosigned by Raúl Baker MD at 11/08/2024 5:27 PM EDT Associated attestation - Raúl Baker MD - 11/08/2024 5:27 PM EDT I saw and evaluated the patient with the resident/fellow. I discussed the case with the resident/fellow and agree with the findings and plan as documented. * PAT Phone Note - Zainab Donahue RN - 11/07/2024 10:16 AM EDT HPI Lashell Mao is a 74 y.o. female who presents with Pre-op Diagnosis * Closed fracture of olecranon process of left ulna, initial encounter [S52.022A] now scheduled forORIF, FRACTURE, OLECRANON (Left). Date scheduled is 11/08/2024. Past Medical History[1] Family History[1] Social History[1] SURGICAL HISTORY: Surgical History[1] Allergies[1] MEDICATIONS: Current Medications[1] Zainab Donahue RN [1] Past Medical History: Diagnosis Date Arthritis Asthma controlled per patient Fractures [1] History reviewed. No pertinent family history. [1] Social History Tobacco Use Smoking status: Never Smokeless tobacco: Never Substance Use Topics Alcohol use: Yes Comment: social Drug use: Never [1] Past Surgical History: Procedure Laterality Date COLONOSCOPY OTHER SURGICAL HISTORY boil corrected [1] Allergies Allergen Reactions Biaxin [Clarithromycin] Other - please document in the comment field Lidocaine Palpitations Any of the melquiades Procaine Palpitations Causes racing-xylocaine also causes same reaction Can use carbocaine [1] No current facility-administered medications for this encounter. Current Outpatient Medications: doxycycline, Take 1 tablet by mouth. 2 times a week metroNIDAZOLE, Apply topically. 2 times a week montelukast, Chew every morning. multivitamin, Take 1 tablet by mouth daily. Unable to Find, Med Name: cbd oil daily * Preprocedure Instructions - Zainab Donahue RN - 11/07/2024 10:15 AM EDT Home Medication Instructions Current Medications Medication Instructions doxycycline (Periostat) 20 MG tablet Take as prescribed metroNIDAZOLE (Metrocream) 0.75 % cream Hold day of surgery montelukast (Singulair) 4 MG chewable tablet Take morning of surgery Multiple Vitamin (multivitamin) tablet Hold day of surgery UNABLE TO FIND Hold day of surgery General Preoperative Instructions You will be called the business day before surgery with your arrival time Do not eat or drink thick liquids after midnight, encouraged to drink clear liquids until two hoursprior to arrival time (which include water, Pedialyte, apple juice, Gatorade (avoid reds/blue/purple), avoid carbonated drinks). No alcohol or smoking prior to surgery Arrive on time to avoid delays Parking/Registration procedure explained You MUST have a responsible adult available for transport to and from hospital Visitation policy for the day of surgery reviewed Bring insurance card, photo ID, along with power of united states attorney, guardianship or advanced directives if applicable Do not bring money, jewelry or other valuables Hibiclens bathing instructions reviewed if applicable Notify surgeon of fever, illness, any changes or if you decide not to have surgery documented in this encounter Plan of Treatment Not on file documented as of this encounter Procedures Procedure Name Priority Date/Time Associated Diagnosis Comments XR ELBOW LEFT 3+ VIEWS STAT 11/08/2024 5:25 PM EDT FL LESS THAN 1 HOUR (NON-REPORTABLE) Routine 11/08/2024 4:24 PM EDT NM OPEN TX ULNAR FRACTURE PROX END 11/08/2024 2:32 PM EDT Closed fracture of olecranon process of left ulna, initial encounter documented in this encounter Results * XR Elbow Left 3+ Views (11/08/2024 5:25 PM EDT) Anatomical Region Laterality Modality Upper Extremities, Elbow Left Digital Radiography Impressions 11/09/2024 8:18 AM EDT Expected postoperative changes internal fixation of olecranon fracture. CRITICAL RESULT: No. COMMUNICATION: Per this written report. Drafted by Munir Morataya MD on 11/09/2024 8:16 AM Final report signed by Munir Morataya MD on 11/09/2024 8:18 AM Narrative 11/09/2024 8:18 AM EDT CLINICAL INDICATION: post-op TECHNIQUE: XR ELBOW LEFT 3+ VIEWS COMPARISON: November 05, 2024 FINDINGS: 3 views of the splinted left elbow show posterior plate and screw fixation of comminuted olecranon fracture with anatomic reduction of fracture fragments. Elbow joint space and alignment are normal.. Procedure Note Munir Morataya MD - 11/09/2024 CLINICAL INDICATION: post-op TECHNIQUE: XR ELBOW LEFT 3+ VIEWS COMPARISON: November 05, 2024 FINDINGS: 3 views of the splinted left elbow show posterior plate and screw fixationof comminuted olecranon fracture with anatomic reduction of fracturefragments. Elbow joint space and alignment are normal.. IMPRESSION: Expected postoperative changes internal fixation of olecranon fracture. CRITICAL RESULT: No. COMMUNICATION: Per this written report. Drafted by Munir Morataya MD on 11/09/2024 8:16 AM Final report signed by Munir Morataya MD on 11/09/2024 8:18 AM Raúl Baker MD IMG XR PROCEDURES Final Resu lt * FL Less than 1 Hour Intraoperative (11/08/2024 4:24 PM EDT) Narrative IMAGING - 11/08/2024 4:29 PM EDT Images were obtained for surgical purposes. See Raúl Baker's surgical note in the patient's chart for the findings. Raúl Baker MD IMG FLUOROSCOPY PROCEDURES F inal Result IMAGING documented in this encounter Visit Diagnoses Diagnosis Closed fracture of left olecranon process- Primary Closed fracture of olecranon process of left ulna, initial encounter [S52.022A] documented in this encounter Admitting Diagnoses Diagnosis Closed fracture of left olecranon process documented in this encounter Administered Medications Inactive Administered Medications - up to 3 most recent administrations Medication Order MAR Action Action Date Dose Rate Site acetaminophen (Tylenol) tablet 1,000 mg 1,000 mg, Oral, Once as needed, 1 dose, Starting on Thu11/08/24 at 1704, Until Thu11/08/24 at 1805, Routine, Recovery (Phase I only), pain score of >1 out of 10 Given 11/08/2024 6:05 PM EDT 1,000 mg droperidol (Inapsine) injection 0.625 mg 0.625 mg, Intravenous, Once as needed, 1 dose, Starting on Thu11/08/24 at 1703, Until Thu11/08/24 at 1709, Routine, Recovery (Phase I only), nausea, vomiting Given 11/08/2024 5:09 PM EDT 0.625 mg droperidol (Inapsine) injection 0.625 mg 0.625 mg, Intravenous, Once as needed, 1 dose, Starting on Thu11/08/24 at 1743, Until Thu11/08/24 at 1749, Routine, nausea, vomiting Given 11/08/2024 5:49 PM EDT 0.625 mg fentaNYL (Sublimaze) injection 25 mcg 25 mcg, Intravenous, Every 5 min PRN, 2 doses, Starting on Thu11/08/24 at 1703, Until Thu11/08/24 at 1725, Routine, Recovery (Phase I only), pain score of 3-4 out of 10 Given 11/08/2024 5:25 PM EDT 25 mcg Given 11/08/2024 5:09 PM EDT 25 mcg HYDROmorphone (Dilaudid) injection 0.5 mg 0.5 mg, Intravenous, Every 10 min PRN, 2 doses, Starting on Thu11/08/24 at 1703, Until Thu11/08/24 at 2201, Routine, Recovery (Phase I only), pain score of 9-10 out of 10 ipratropium-albuterol (Duo-Neb) 0.5-2.5 mg/3 mL nebulizer solution 3 mL 3 mL, Nebulization, Once as needed, 1 dose, Starting on Thu11/08/24 at 1703, Until Thu11/08/24 at 2201, Routine, Recovery (Phase I only), wheezing naloxone (Narcan) injection 0.4 mg 0.4 mg, Intravenous, As needed, Starting on Thu11/08/24 at 1703, Until Thu11/08/24 at 2201, Routine, Recovery (Phase I only), respiratory depression oxyCODONE (Roxicodone) immediate release tablet 10 mg 10 mg, Oral, Once as needed, 2 doses, Starting on Thu11/08/24 at 1704, Until Thu11/08/24 at 2201, Routine, Recovery (Phase I only), pain score of 6-8 out of 10 Given 11/08/2024 5:19 PM EDT 10 mg oxyCODONE (Roxicodone) immediate release tablet 5 mg 5 mg, Oral, Once as needed, 2 doses, Starting on Thu11/08/24 at 1704, Until Thu11/08/24 at 2201, Routine, Recovery (Phase I only), pain score of 3-5 out of 10 Povidone-Iodine 5 % swab solution 1 Application Nasal, Once, 1 dose, On Thu11/08/24 at 1400, Routine Given 11/08/2024 2:26 PM EDT 1 Application sodium chloride 0.9 % flush 10 mL 10 mL, Intravenous, Every 12 hours, First dose on Thu11/08/24 at 1400, Until Discontinued, Routine, Holding - Preprocedure sodium chloride 0.9 % flush 10 mL 10 mL, Intravenous, As needed, Starting on Thu11/08/24 at 1308, Until Thu11/08/24 at 2201, Routine, Holding - Preprocedure, line care documented in this encounter Active and Recently Administered Medications Times are shown in EDT. Scheduled Medication Order 11/06/2024 11/07/2024 11/08/2024 ketorolac (Toradol) injection 15 mg 15 mg, Intravenous, Once, 1 dose, On Thu11/08/24 at 1930, Routine, Sign 1930 (Canceled Entry - Provider: Automatic Discharge Provider - Comment: Automatically canceled at discontinue of medication order) Povidone-Iodine 5 % swab solution 1 Application (COMPLETED) Nasal, Once, 1 dose, On Thu11/08/24 at 1400, Routine 1426 (Given - Provid er: Ololaal I [facility]) sodium chloride 0.9 % flush 10 mL(Linked Group 1) 10 mL, Intravenous, Every 12 hours, First dose on Thu11/08/24 at 1400, Until Discontinued, Routine, Holding - Preprocedure 1400 (Canceled Entry - Provider: Automatic Discharge Provider - Comment: Automatically canceled at discontinue of medication order) PRN Medication Order 11/06/2024 11/07/2024 11/08/2024 acetaminophen (Tylenol) tablet 1,000 mg (COMPLETED) 1,000 mg, Oral, Once as needed, 1 dose, Starting on Thu11/08/24 at 1704, Until Thu11/08/24 at 1805, Routine, Recovery (Phase I only), pain score of >1 out of 10 1804 (Given - Provid er: Isabel Vanegas RN) droperidol (Inapsine) injection 0.625 mg (COMPLETED) 0.625 mg, Intravenous, Once as needed, 1 dose, Starting on Thu11/08/24 at 1703, Until Thu11/08/24 at 1709, Routine, Recovery (Phase I only), nausea, vomiting 1708 (Given - Provid er: Isabel Vanegas RN) droperidol (Inapsine) injection 0.625 mg (COMPLETED) 0.625 mg, Intravenous, Once as needed, 1 dose, Starting on Thu11/08/24 at 1743, Until Thu11/08/24 at 1749, Routine, nausea, vomiting 1748 (Given - Provid er: Isabel Vanegas RN) fentaNYL (Sublimaze) injection 25 mcg (COMPLETED) 25 mcg, Intravenous, Every 5 min PRN, 2 doses, Starting on Thu11/08/24 at 1703, Until Thu11/08/24 at 1725, Routine, Recovery (Phase I only), pain score of 3-4 out of 10 1708 (Given - Provid er: Isabel Vanegas RN)172 (Given - Provider: Isabel Vanegas RN) HYDROmorphone (Dilaudid) injection 0.5 mg 0.5 mg, Intravenous, Every 10 min PRN, 2 doses, Starting on Thu11/08/24 at 1703, Until Thu11/08/24 at 2201, Routine, Recovery (Phase I only), pain score of 9-10 out of 10 ipratropium-albuterol (Duo-Neb) 0.5-2.5 mg/3 mL nebulizer solution 3 mL 3 mL, Nebulization, Once as needed, 1 dose, Starting on Thu11/08/24 at 1703, Until Thu11/08/24 at 2201, Routine, Recovery (Phase I only), wheezing naloxone (Narcan) injection 0.4 mg 0.4 mg, Intravenous, As needed, Starting on Thu11/08/24 at 1703, Until Thu11/08/24 at 2201, Routine, Recovery (Phase I only), respiratory depression oxyCODONE (Roxicodone) immediate release tablet 10 mg(Linked Group 2) 10 mg, Oral, Once as needed, 2 doses, Starting on Thu11/08/24 at 1704, Until Thu11/08/24 at 2201, Routine, Recovery (Phase I only), pain score of 6-8 out of 10 1719 (Given - Provid er: Isabel Vanegas RN) oxyCODONE (Roxicodone) immediate release tablet 5 mg(Linked Group 2) 5 mg, Oral, Once as needed, 2 doses, Starting on Thu11/08/24 at 1704, Until Thu11/08/24 at 220, Routine, Recovery (Phase I only), pain score of 3-5 out of 10 1719 (See Alternativ e - Provider: Isabel Vanegas RN) sodium chloride 0.9 % flush 10 mL(Linked Group 1) 10 mL, Intravenous, As needed, Starting on Thu11/08/24 at 1308, Until Thu11/08/24 at 2201, Routine, Holding - Preprocedure, line care Linked Groups Order Group 1: Insert peripheral IV (CANCELED) Once, On Thu11/08/24 at 1309, For 1 occurrence, Holding - Preprocedure And Saline lock IV (CANCELED) Once, On Thu11/08/24 at 1309, For 1 occurrence, Holding - Preprocedure And sodium chloride 0.9 % flush 10 mLJump to med 10 mL, Intravenous, Every 12 hours, First dose on Thu11/08/24 at 1400, Until Discontinued, Routine, Holding - Preprocedure And sodium chloride 0.9 % flush 10 mLJump to med 10 mL, Intravenous, As needed, Starting on Thu11/08/24 at 1308, Until Thu11/08/24 at 2201, Routine, Holding - Preprocedure, line care Group 2: oxyCODONE (Roxicodone) immediate release tablet 5 mgJump to med 5 mg, Oral, Once as needed, 2 doses, Starting on Thu11/08/24 at 1704, Until Thu11/08/24 at 2201, Routine, Recovery (Phase I only), pain score of 3-5 out of 10 Or oxyCODONE (Roxicodone) immediate release tablet 10 mgJump to med 10 mg, Oral, Once as needed, 2 doses, Starting on Thu11/08/24 at 1704, Until Thu11/08/24 at 2201, Routine, Recovery (Phase I only), pain score of 6-8 out of 10 documented in this encounter Care Teams Warehouse Receiving Supervisor Relationship Specialty Start Date End Date Enmanuel Rg MD [address] [place] [address] [place] [address] PCP - General Internal Medicine 11/08/24 documented as of this encounter
--- OUTSIDE RECORDS SUMMARY | 2024-11-08 13:00 | XMS_ITS | Encounter Summary ---
Author Organization [facility] Address [address] [place] [address] Care Team Providers Care Lead Systems Architect Name Role Phone Enmanuel Rg MD Primary Care Provider + [phone] Reason for Visit * Auth/Cert (Routine) Specialty Diagnoses / Procedures Referred By Contac t Referred To Contact Diagnoses Closed fracture of olecranon process of left ulna, initial encounter Closed fracture of olecranon process of left ulna, initial encounter [S52.022A] Procedures NH OPEN [place] ULNAR FRACTURE PROX END ORIF, FRACTURE, OLECRANON Raúl Baker MD [address] [address] Phone: tel: fax: [facility] [address] [place] [address] Phone: tel: Referral ID Status Reason Start Date Expiration Date Visits Re quested Visits Authorized [id number] 1 1 Encounter Details Date Type Department Care Team (Late st Contact Info) Description 11/08/2024 1:00 PM EDT - 11/08/2024 3:30 PM EDT Surgery [facility] [address] [place] [address] Raúl Baker MD [address] [address] ORIF, FRACTURE, OLECRANON [81580 (CPT )] Surgery Details Date/Time Status Location OR Service Patient Class Case Class Case Type Trauma Case? 11/08/2024 1:00 PM Posted [facility] E-Electi ve Panel 1 Procedure LRB Anes Op Region Wound Class Comments ORIF, FRACTURE, OLECRANON Left Choice Elbow Class I/ Clean Prone, C arm, ortho soft tissue, trauma toolbox, K wires, caterina olecranon plates, peri2, modified clamps Surgeon Surgeon Role Service Panel Raúl Baker MD Primary Orthopedic Surgery 1 Joey Amato MD Resident - Assisting 1 documented in this encounter Social History Tobacco Use Types Packs/Day Years [...] Sign Reading Time Taken Comments Blood Pressure 128/75 11/08/2024 1:40 PM EDT Pulse 64 11/08/2024 1:40 PM EDT Temperature 36.8 C (98.2 F) 11/08/2024 1:40 PM EDT Respiratory Rate 17 11/08/2024 1:40 PM EDT Oxygen Saturation 96% 11/08/2024 1:40 PM EDT Inhaled Oxygen Concentration - - [...] Miscellaneous Notes * Anesthesia PACU Signout - Mushtaq Finn DO - 11/08/2024 5:41 PM EDT Patient: [...] Agree with above assessment and evaluation from resident/MINERAL ECONOMIST. * Op Note - Raúl Baker MD - 11/08/2024 3:36 PM EDT Operative Note Date: 11/08/24 Location: [facility] Name: Lashell Mao, : 1950, Diagnoses: Pre-op Diagnosis Closed fracture of olecranon process of left ulna, initial encounter Post-op Diagnosis Closed fracture of olecranon process of left ulna, initial encounter Procedure(s): Open reduction internal fixation left proximal ulna fracture (olecranon fracture) Attending Surgeon(s): * Raúl Baker - Primary Speech And Language Clinician(s): * Joey Amato MD - Resident - Assisting Anesthesia: Choice ASA: II Blood Administration: Blood Product Administration History None Estimated Blood Loss: Minimal Drains: * None in log * Implants Type Name Action Serial No. Plate PLATE PROX MELVA ULNA 4H LT - SNA - [id number] Implanted NA Screw SCREW 2.7MM CORTICAL SMALL HEX SELFTAP 44MM - SNA - [id number] Implanted NA Screw SCREW 3.5MM PERIART 2.7MM HEAD SELFTAP 32MM - SNA - [id number] Implanted NA Screw SCREW 3.5MM PERIART 2.7MM HEAD SELFTAP 20MM - SNA - [id number] Implanted NA Wire WIRE JENNIFER TROCAR POINT 1.25MM X 150MM - SNA - [id number] Used, Not Implanted NA Wire WIRE JENNIFER TROCAR POINT 1.6MM x 150MM - SNA - [id number] Implanted NA Specimen: Findings: Displaced and unstable [...] ulna distally. Final x-rays demonstrated near anatomic congregational of the olecranon and safe implant placement. We irrigated the incision copiously. We closed in layers with nylon the skin. Sterile [...] 11/08/2024 3:36 PM EDT Date: 11/08/24 Location: [facility] Name: Lashell Adame Mayco, : 1950, Diagnoses: Pre-op Diagnosis Closed fracture of olecranon process of left ulna, initial encounter Post-op Diagnosis Closed fracture of olecranon process of left ulna, initial encounter Procedure(s): Open reduction and internal fixation of right olecranon fracture Attending Surgeon(s): * Raúl Baker - Primary Speech And Language Clinician(s): * Joey Amato MD - Resident - Assisting Anesthesia: Choice ASA: II Blood Administration: Blood Product Administration History None Estimated Blood Loss: 15 mL Drains: * None in log * Implants Type Name Action Serial No. Plate PLATE PROX MELVA ULNA 4H LT - SNA - [id number] Implanted NA Screw SCREW 2.7MM CORTICAL SMALL HEX SELFTAP 44MM - SNA - [id number] Implanted NA Screw SCREW 3.5MM PERIART 2.7MM HEAD SELFTAP 32MM - SNA - [id number] Implanted NA Screw SCREW 3.5MM PERIART 2.7MM HEAD SELFTAP 20MM - SNA - [id number] Implanted NA Wire WIRE JENNIFER TROCAR POINT 1.25MM X 150MM - SNA - [id number] Used, Not Implanted NA Wire WIRE JENNIFER TROCAR POINT 1.6MM x 150MM - SNA - [id number] Implanted NA Specimen: None Findings: See operative [...] c/d/i, cover with water proof bag, otherwise spongebath only F/U: Janine Monterroso on 11/24 in [facility] Complications: None; patient tolerated the procedure well. Submitted by: Joey Amato MD - 11/08/2024 Cosigned by Raúl Baker MD at 11/08/2024 [...] Donahue RN - 11/07/2024 10:16 AM EDT VIVI Mao is a 74 y.o. female who [...] card, photo ID, along with power of trial attorney, guardianship or advanced directives if applicable [...] HOUR (NON-REPORTABLE) Routine 11/08/2024 4:24 PM EDT NH OPEN TX ULNAR FRACTURE PROX END 11/08/2024 [...] in the patient's chart for the findings. us Raúl Baker MD IMG FLUOROSCOPY PROCEDURES F inal Result IMAGING documented in this encounter Visit Diagnoses Diagnosis Closed fracture of left olecranon process- Primary Closed fracture of olecranon process of left ulna, initial encounter [S52.022A] Closed fracture of olecranon process of left ulna, initial encounter documented in this encounter Admitting Diagnoses Diagnosis [...] on Thu11/08/24 at 1703, Until Thu11/08/24 at 220, Routine, Recovery (Phase I only), respiratory depression [...] on Thu11/08/24 at 1704, Until Thu11/08/24 at 2200, Routine, Recovery (Phase I only), pain score [...] 1400, Routine 1426 (Given - Provid er: Ololade I Ney Abatan) sodium chloride 0.9 % flush 10 mL(Linked [...] Routine, Recovery (Phase I only), nausea, vomiting 170 (Given - Provid er: Isabel Vanegas RN) droperidol (Inapsine) injection 0.625 mg (COMPLETED) 0.625 mg, Intravenous, Once as needed, 1 dose, Starting on Thu11/08/24 at 1743, Until Thu11/08/24 at 1749, Routine, nausea, vomiting 174 (Given - Provid er: Isabel Vanegas RN) fentaNYL (Sublimaze) injection 25 mcg (COMPLETED) 25 mcg, Intravenous, Every 5 min PRN, 2 doses, Starting on Thu11/08/24 at 1703, Until Thu11/08/24 at 1725, Routine, Recovery (Phase I only), pain score of 3-4 out of 10 170 (Given - Provid er: Isabel Vanegas RN)172 [...] on Thu11/08/24 at 1703, Until Thu11/08/24 at 220, Routine, Recovery (Phase I only), wheezing naloxone (Narcan) injection 0.4 mg 0.4 mg, Intravenous, As needed, Starting on Thu11/08/24 at 1703, Until Thu11/08/24 at 220, Routine, Recovery (Phase I only), respiratory depression [...] on Thu11/08/24 at 1308, Until Thu11/08/24 at 220, Routine, Holding - Preprocedure, line care Linked [...] 10 documented in this encounter Care Teams Lead Systems Architect Relationship Specialty Start Date End Date Enmanuel Rg MD [address] [place] [address] PCP - General Internal Medicine 11/08/24 documented as of this encounter
--- OUTSIDE RECORDS SUMMARY | 2024-11-08 14:48 | XMS_ITS | Encounter Summary ---
Author Organization [facility] Address [address] [place] [address] Care Team Providers Care Journalism Instructor Name Role Phone Enmanuel Rg MD Primary Care Provider + [phone] Reason for Visit * Auth/Cert (Routine) Specialty Diagnoses / Procedures Referred By Contac t Referred To Contact Diagnoses Closed fracture of olecranon process of left ulna, initial encounter Closed fracture of olecranon process of left ulna, initial encounter [S52.022A] Procedures [place] OPEN TX ULNAR FRACTURE PROX END ORIF, FRACTURE, OLECRANON Raúl Baker MD [address] [facility] [address] [place] [address] Phone: tel: fax: [facility] [address] [place] [address] Phone: tel: Referral ID Status Reason Start Date Expiration Date Visits Re quested Visits Authorized [id number] 1 1 Encounter Details Date Type Department Care Team (Late st Contact Info) Description 11/08/2024 2:48 PM EDT Anesthesia Event [facility] [address] [place] [address] Chavo Mckoy MD [address] [place] [address] Julio Matthews MD [address] [place] [id number] Anesthesia Record Procedure Summary Procedure Name Responsible Anesthesiologist Anesthesia Start Time Anesthesia Stop Time ORIF, FRACTURE, OLECRANON (Left: Elbow) Chavo Mckoy MD 11/08/24 1448 11/08/24 1648 Events Date Time Event Comment 11/08/2024 1447 In Room 1448 An Start The patient was reevaluated immediately before sedation and remains eligible for anesthesia plan. 1448 An Start Data 1458 An Induction The patient was reevaluated immediately before moderate or deep sedation use and before anesthesia induction. 1502 An Intubation 1522 Anesthesia Ready 1536 Proc Start 1634 Proc Fin 1639 An Extubation 1642 an stop data 1643 Out of Room 1648 Handoff to Receiving I compl eted my handoff to the receiving clinician during which we: 1. Identified the patient 2. Identified the responsible provider 3. Reviewed the pertinent medical history 4. Discussed the surgical course 5. Reviewed intra-op anesthesia management and issues during anesthesia 6. Set expectations for post-procedure period 7. Allowed opportunity for questions and acknowledgement of understanding. 1648 An Stop Meds Name Total fentaNYL (Sublimaze) injection 50 mcg/mL 100 mcg propofol (Diprivan) injection 10 mg/mL 2 00 mg rocuronium (ZeMuron) injection 10 mg/mL 80 mg dexamethasone (Decadron) injection 4 mg/ mL 4 mg HYDROmorphone PF (Dilaudid) injection 1 mg/mL 1 mg ondansetron (Zofran) injection 2 mg/mL 4 mg sugammadex (Bridion) injection 100 mg/mL 200 mg ceFAZolin 1 g 2 g lactated Ringer's infusion 900 mL * Agents Name O2 * Blood No blood administrations on file. Lines, Drains, and Airways Type Details Placement Removal Wound 11/08/24; 1602; N; Y es; Surgical; Elbow; Left, Posterior 11/08/24 1602 by Joanie Ventura RN Peripheral IV Placement Date: 08/28; Placement Time: 143; Catheter Size: 18 G; Orientation: Right; Location: Antecubital; Site Prep: Chlorhexidine ; Local Anesth: [place]; Technique: Anatomical landmarks; Inserted by: jes kent; Insertion Attempts: 1; Patient Tolerance: Tolerated well; Removal Date: 11/08/24; Removal Time: 192811/08/24 143 by Yamilet Tapia RN 11/08/241928 by Isabel Vanegas RN ETT Placement Date: 08/28; Placement Time: 1502 (created via procedure documentation); Mask Ventilation: 1; Technique: Video laryngoscopy; Type: ETT - single; Single Lumen Tube Size: 7.5 mm; Cuffed: Yes; Laryngoscope: Christina; Blade Size: 4; Location: Oral; Grade View: Grade III; Insertion Attempts: 1; Placement Verification: Auscultation, Capnometry; Airway Comments: Atraumatic. No change to dentition. ; Placed by: CHILDREN'S COUNSELOR; Removal Date: 11/08/24; Removal Time: 1639 11/08/24 1502 by Arnold Banks CRNA 11/08/24 1639 by Arnold Banks CRNA documented in this encounter Social History Tobacco [...] on file documented as of this encounter Functional Status * Calculated C-SSRS [...] Tapia RN documented as of this encounter Miscellaneous Notes * Anesthesia Postprocedure Evaluation - Arnold Banks CRNA - 11/08/2024 4:48 PM EDT Patient: Lashell Mao Anesthesia Type: general Vitals Value Taken Time BP 150/79 11/08/24 16:45 Temp 36.6 ??C (97.8 ??F) 11/08/24 16:45 Pulse 66 11/08/24 16:47 Resp 10 11/08/24 16:47 SpO2 100 % 11/08/24 16:47 Vitals shown include unfiled device data. Anesthesia Post Evaluation Patient location during evaluation: PACU Patient participation: complete - patient participated Level of consciousness: responsive to physical stimuli Pain management: adequate (pain score 0-3) Airway patency: natural airway Cardiovascular status: acceptable and hemodynamically stable Respiratory status: acceptable and blow-by oxygen Hydration status: acceptable Nausea/Vomiting: No No notable events documented. * Anesthesia Procedure Notes - Arnold Banks CRNA - 11/08/2024 3:22 PM EDT Associated Order(s): Airway Airway Date/Time: 11/08/2024 3:02 PM Reason: elective Difficult airway General Information and Staff Patient location during procedure: OR CHILDREN'S COUNSELOR: Arnold Banks CRNA Performed: CHILDREN'S COUNSELOR Patient Condition Indications for airway management: anesthesia Patient position: sniffing Final Airway Details Final airway type: endotracheal airway Successful airway: ETT Cuffed: yes Successful intubation technique: video laryngoscopy Adjuncts used in placement: intubating stylet Endotracheal tube insertion site: oral Blade: Christina Blade size: #4 ETT size (mm): 7.5 Cormack-Lehane Classification: grade III - view of epiglottis only Placement verified by: chest auscultation and capnometry Inital cuff pressure (cm H2O): 8 Measured from: lips ETT to lips (cm): 22 Additional Comments Atraumatic. No change to dentition. * Anesthesia Preprocedure Evaluation - Chavo Mckoy MD - 11/07/2024 5:02 PM EDT Anesthesiologist: (Unknown) CHILDREN'S COUNSELOR: (Unknown) Neurosurgical Physician Assistant: (Unknown) Patient: Lashell Mao is a 74 y.o. female with body mass index is 31.18 kg/m??. who presents with Closed fracture of left olecranon process, now for ORIF, FRACTURE, OLECRANON (Left) Procedure Information Date/Time: 11/08/24 1300 Procedure: ORIF, FRACTURE, OLECRANON (Left: Elbow) - Prone, C arm, ortho soft tissue, trauma toolbox, K wires, caterina olecranon plates, peri2, modified clamps Location: [facility] / [facility] Surgeons: Raúl Baker MD Relevant Problems Anesthesia (within normal limits) Cardio (within normal limits) Endo (within normal limits) GI (within normal limits) /Renal (within normal limits) Neuro/Psych (within normal limits) Pulmonary (+) Mild intermittent asthma without complication Musculoskeletal (+) Closed fracture of left olecranon process ALLERGIES Allergies[1] NPO STATUS Past Medical History[2] AIRWAY HISTORY Airway Detailed Review Displaying the 20 most recent records No records found. MEDICATIONS Outpatient Current Outpatient Medications Medication Instructions doxycycline (PERIOSTAT) 20 mg metroNIDAZOLE (Metrocream) 0.75 % cream Apply topically. 2 times a week montelukast (Singulair) 4 MG chewable tablet Every morning Multiple Vitamin (multivitamin) tablet 1 tablet, Daily UNABLE TO FIND Med Name: cbd oil daily Scheduled Current Scheduled Medications[3] PRNs Current PRN Medications[4] SURGICAL HX: Surgical History[5] SOCIAL HX: Social History[6] OBJECTIVE DATA LABS Lab Results Component Value Date WBC 8.82 11/05/2024 HGB 13.4 11/05/2024 HCT 39.9 11/05/2024 MCV 91 11/05/2024 PLT 226 11/05/2024 Lab Results Component Value Date CALCIUM 9.5 11/05/2024 BUN 11 11/05/2024 CREATININE 0.71 11/05/2024 BCR 15 11/05/2024 NA 141 11/05/2024 K 3.9 11/05/2024 CL 105 11/05/2024 CO2 23 11/05/2024 Type and Screen ABO/Rh Date Value Ref Range Status 11/05/2024 O Negative Final Results from last 7 days Lab Units 11/05/24 0246 INR 1.0 No results found for: HGBA1C Lab Results Component Value Date GLUCOSE 118 (H) 11/05/2024 ABG No results found for: PHART , HEP4MGX , PO2ART , SO2ART , BEART , JUF1XFA , HCTART , SODIUMART , POTASSIUMART , POCTCL , POCGLU , IONCALART , LACTATE No results found for: PH , PCO2 , PO2 , V2VCMKYH , BASEEXC , HCTSYR , KSYR , CLSYR , GLUSYR , CAION , LACTATE ECHO No echocardiogram results found for the past 12 months PFTs No results found for: KLK8XTY , MXK6ZTMS , EZG0PAF , FVCPRED BP Readings from Last 5 Encounters: 11/05/24 133/75 Physical Exam Airway Mallampati: III Mouth opening: normal Neck ROM: full Cardiovascular Rhythm: regular Dental Pulmonary Breath sounds clear to auscultation Neurological Oriented: normal to time, normal to place and normal to person and oriented to person, place and time Skin Musculoskeletal Extremities Anesthesia Plan ASA 2 Plan was reviewed with: CHILDREN'S COUNSELOR Anesthesia technique(s) discussed with the patient/family: general Anesthesia plan agreed upon was: general Anesthetic plan and risks discussed with patient. Anesthesia Evaluation [1] Allergies Allergen Reactions Biaxin [Clarithromycin] Other - please document in the comment field Lidocaine Palpitations Any of the melquiades Procaine Palpitations Causes racing-xylocaine also causes same reaction Can use carbocaine [2] Past Medical History: Diagnosis Date Arthritis Asthma controlled per patient Fractures [3] [4] [5] Past Surgical History: Procedure Laterality Date COLONOSCOPY OTHER SURGICAL HISTORY boil corrected [6] Social History Tobacco Use Smoking status: Never Smokeless tobacco: Never Substance Use Topics Alcohol use: Yes Comment: social Drug use: Never documented in this encounter Plan of Treatment Not on file documented as of this encounter Procedures Procedure Name Priority Date/Time Associated Diagnosis Comments PB ANESTHESIA PLACEHOLDER Routine 11/08/2024 3:02 PM EDT ND AN ELECTIVE ENDOTRACHEAL AIRWAY Routine 11/08/2024 3:02 PM EDT documented in this encounter Results * ND AN ELECTIVE ENDOTRACHEAL AIRWAY, PB ANESTHESIA PLACEHOLDER (11/08/2024 3:02 PM EDT) Narrative Arnold Banks CRNA - 11/08/2024 3:02 PM EDT Arnold Banks CRNA 11/08/2024 3:23 PM Airway Date/Time: 11/08/2024 3:02 PM Reason: elective Difficult airway General Information and Staff Patient location during procedure: OR CHILDREN'S COUNSELOR: Arnold Banks CRNA Performed: CHILDREN'S COUNSELOR Patient Condition Indications for airway management: anesthesia Patient position: sniffing Final Airway Details Final airway type: endotracheal airway Successful airway: ETT Cuffed: yes Successful intubation technique: video laryngoscopy Adjuncts used in placement: intubating stylet Endotracheal tube insertion site: oral Blade: Christina Blade size: #4 ETT size (mm): 7.5 Cormack-Lehane Classification: grade III - view of epiglottis only Placement verified by: chest auscultation and capnometry Inital cuff pressure (cm H2O): 8 Measured from: lips ETT to lips (cm): 22 Additional Comments Atraumatic. No change to dentition. us Chavo Mckoy MD ANESTHESIA ORDERABLES Final R esult documented in this encounter Visit Diagnoses Not on filedocumented in this encounter Administered Medications Inactive Administered Medications - up to 3 most recent administrations Medication Order MAR Action Action Date Dose Rate Site ceFAZolin (Ancef) injection Intravenous, As needed, Starting on Thu11/08/24 at 1520, Until Thu11/08/24 at 1648, Routine, Anesthesia Intraprocedure Given 11/08/2024 3:20 PM EDT 2 g dexamethasone (Decadron) injection Intravenous, As needed, Starting on Thu11/08/24 at 1520, Until Thu11/08/24 at 1648, Routine, Anesthesia Intraprocedure Given 11/08/2024 3:20 PM EDT 4 mg fentaNYL (Sublimaze) injection Intravenous, As needed, Starting on Thu11/08/24 at 1458, Until Thu11/08/24 at 1648, Routine, Anesthesia Intraprocedure Given 11/08/2024 2:58 PM EDT 100 mcg HYDROmorphone PF (Dilaudid) injection Intravenous, As needed, Starting on Thu11/08/24 at 1633, Until Thu11/08/24 at 1648, Routine, Anesthesia Intraprocedure Given 11/08/2024 4:33 PM EDT 1 mg lactated Ringer's infusion Intravenous, Continuous PRN, Starting on Thu11/08/24 at 1447, Until Thu11/08/24 at 1648, Routine New Bag 11/08/2024 2:47 PM EDT ondansetron (Zofran) injection Intravenous, As needed, Starting on Thu11/08/24 at 1520, Until Thu11/08/24 at 1648, Routine, Anesthesia Intraprocedure Given 11/08/2024 3:20 PM EDT 4 mg propofol (Diprivan) injection Intravenous, As needed, Starting on Thu11/08/24 at 1458, Until Thu11/08/24 at 1648, Routine, Anesthesia Intraprocedure Given 11/08/2024 2:58 PM EDT 200 mg rocuronium (ZeMuron) injection Intravenous, As needed, Starting on Thu11/08/24 at 1458, Until Thu11/08/24 at 1648, Routine, Anesthesia Intraprocedure Given 11/08/2024 4:04 PM EDT 30 mg Given 11/08/2024 2:58 PM EDT 50 mg sugammadex (Bridion) 100 MG/ML injection Intravenous, As needed, Starting on Thu11/08/24 at 1633, Until Thu11/08/24 at 1648, Routine, Anesthesia Intraprocedure Given 11/08/2024 4:33 PM EDT 200 mg documented in this encounter Care Teams Journalism Instructor Relationship Specialty Start Date End Date Enmanuel Rg MD [address] [place] [address] [place] [address] PCP - General Internal Medicine 11/08/24 documented as of this encounter
--- OUTSIDE RECORDS SUMMARY | 2024-11-24 09:30 | XMS_ITS | Encounter Summary ---
Author Organization [facility] Address [address] [place] [address] Care Team Providers Care Crackling Press Operator Name Role Phone Enmanuel Rg MD Primary Care Provider + [phone] Reason for Referral * Consultation (Routine) - Authorized Specialty Diagnoses / Procedures Referred By Yrn de leon Referred To Contact Physical Therapy Diagnoses Closed fracture of olecranon process of left ulna, initial encounter Janine Monterroso PA [address] [place] [address] Phone: tel: fax: Referral ID Status Reason Start Date Expiration Date Visits Requested Visits Authorized [id number] Authorized Consult and Treat 11/24/2024 05/26/2026 1 1 Reason for Visit * Reason Comments Post-op * Consultation (Routine) - Closed Specialty Diagnoses / Procedures Referred By Yrn de leon Referred To Contact Orthopaedic Surgery Diagnoses Closed fracture of olecranon process of left ulna, initial encounter Adilene Malik MD [address] [place] [address] Phone: tel: fax: [facility]opa[facility] Surgery [facility] [address] [place] [address] Phone: tel: fax: Referral ID Status Reason Start Date Expiration Date V isits Requested Visits Authorized [id number] Closed Specialty Services Required 11/05/2024 05/07/2026 1 1 Encounter Details Date Type Department Care Team (Late st Contact Info) Description 11/24/2024 9:30 AM EDT Office Visit [facility] Orthopaedic Surgery & Sports Medicine [address] [place] [address] Janine Monterroso PA [address] [place] [address] Closed fracture of olecranon process of left ulna, initial encounter (Primary Dx) Social History Tobacco Use Types Packs/Day Years Used Date Smoking Tobacco: Never Smokeless Tobacco: Never Alcohol Use Standard Drinks/Week Comments Yes 0 (1 standard drink = 0.6 oz pur e alcohol) social PHQ-2 Answer Date Recorded Patient Health Questionnaire-2 Score 0 11/24/2024 PHQ-9 Answer Date Recorded Patient Health Questionnaire-9 Score 0 11/24/2024 Comments No Sex and Gender Information Value Date Recorded Sex Assigned at Not on file Legal Sex Female 8:18 PM EDT Gender Identity Not on file Sexual Orientation Not on file documented as of this encounter Last Filed Vital Signs Vital Sign Reading Time Taken Comments Blood Pressure 148/76 11/24/2024 9:37 AM EDT Pulse 63 11/24/2024 9:37 AM EDT Temperature - - Respiratory Rate - - Oxygen Saturation 98% 11/24/2024 9:37 AM EDT Inhaled Oxygen Concentration - - Weight 80.2 kg (176 lb 12.8 oz) 11/24/2024 9:37 AM EDT Height 160 cm (5' 3 ) 11/24/2024 9:37 AM EDT Body Mass Index 31.32 11/24/2024 9:37 AM EDT documented in this encounter Functional Status * Over the past 2 weeks, how often have you been bothered by any of the following problems? Question Answer Date of Assessment Author Little interest or pleasure in doing things Not at all 11/24/2024 9:38 AM EDT Maranda Burden Feeling down, depressed, or hopeless Not at all 11/24/2024 9:38 AM Maranda Basilio Patient Health Questionnaire -2 Score 0 11/24/2024 9:38 AM Maranda Basilio * Question Answer Date of Assessment Author Trouble falling or staying a sleep, or sleeping too much Not at all 11/24/2024 9:38 AM Maranda Basilio Feeling tired or having marybel le energy Not at all 11/24/2024 9:38 AM Maranda Basilio Poor appetite or overeating Not at all 11/24/2024 9: 38 AM Maranda Basilio Feeling bad about yourself - or that you are a failure or have let yourself or your family down Not at all 11/24/2024 9:38 AM Ashkan Basilio Trouble concentrating on thi ngs, such as reading the newspaper or watching television Not at all 11/24/2024 9:38 AM Maranda Basilio Moving or speaking so slowly that other people could have noticed? Or the opposite - being so fidgety or restless that you have been moving around a lot more than usual. Not at all 11/24/2024 9:38 AM Melva Basilio Thoughts that you would be b pardeep off or hurting yourself in some way Not at all 11/24/2024 9:38 AM Maranda Basilio Patient Health Questionnaire -9 Score 0 11/24/2024 9:38 AM Maranda Basilio * How difficult have these problems made it for you to do your work, take care of things at home, or get along with other people? Answer Date of Assessment Author Not difficult at all 11/24/2024 9:38 AM Maranda Basilio documented as of this encounter Miscellaneous Notes * Progress Notes - Janine Monterroso PA - 11/24/2024 9:30 AM EDT Chief Complaint: ORIF left olecranon fracture (11/08/24) HPI: Lashell Mao is a 74 y.o. female who presents to clinic for postoperative follow up 2weeks s/p the above stated procedure. Patient has been doing well since discharge. They have been compliant with their weightbearing/NWB/splint immobilization. They state their pain has been well controlled/has not been well controlled since discharge. Denies fevers, chills, nausea, vomiting. Denies any numbness, tingling. Denies any further trauma or injury. Focused MSK Exam: Left upper extremity: Well-healed surgical incisions with sutures in place Elbow ROM: 20-60 Motor: Fires Bic, Tri, WF, WE, FF, FE, Fabd, EPL, FPL Sensory: Sensation intact to light touch axillary, radial, median, ulnar nn Vascular: 2+ radial pulse, cap refill < 2 sec XRAY: No new images Assessment: 74 y.o. female who presents 2 weeks s/p operative fixation of their left olecranon fracture. Plan: - Continue NWB LUE. No bracing. Patient may begin active flexion gravity assisted extension ROM of the left elbow. PT order provided for 1x/week - Sutures removed in clinic, steri-strips placed. Patient may shower, get incisions wet, no soaking/submersion, no lotions/ointments over incision site - Recommend ice/elevation/OTC medications prn pain/swelling - FU 4 weeks, with imaging, with RW The patient was given an opportunity to ask questions and all their questions were answered to their satisfaction. The patient was seen and evaluated by myself. Janine Monterroso PA-C Department of Orthopaedic Surgery and Sports Medicine Consult Pager: [phone] Service Pager: [phone] documented in this encounter Plan of Treatment Scheduled Referrals Name Type Priority Associated Diagnoses Order Schedule Physical Therapy (outgoing) Outpatient Referral Routine Closed fracture of olecranon process of left ulna, initial encounter 1 Occurrences starting 11/24/2024 until 05/28/2026 documented as of this encounter Results * XR Elbow Left 3+ Views (12/21/2024 9:20 AM EDT) Anatomical Region Laterality Modality Upper Extremities, Elbow Left Digital Radiography Impressions 12/21/2024 9:31 AM EDT Internal fixation of healing fracture of the olecranon with unchanged anatomic fracture fragment alignment. CRITICAL RESULT: No. COMMUNICATION: Per this written report. Drafted by Munir Morataya MD on 12/21/2024 9:30 AM Final report signed by Munir Morataya MD on 12/21/2024 9:31 AM Narrative 12/21/2024 9:31 AM EDT CLINICAL INDICATION: pain TECHNIQUE: XR ELBOW LEFT 3+ VIEWS COMPARISON: November 08, 2024. FINDINGS: 3 views of the left elbow show posterior plate and screw fixation of the olecranon. No hardware complication. Elbow joint space and alignment are normal. Procedure Note Munir Morataya MD - 12/21/2024 CLINICAL INDICATION: pain TECHNIQUE: XR ELBOW LEFT 3+ VIEWS COMPARISON: November 08, 2024. FINDINGS: 3 views of the left elbow show posterior plate and screw fixation of theolecranon. No hardware complication. Elbow joint space and alignment arenormal. IMPRESSION: Internal fixation of healing fracture of the olecranon with unchangedanatomic fracture fragment alignment. CRITICAL RESULT: No. COMMUNICATION: Per this written report. Drafted by Munir Morataya MD on 12/21/2024 9:30 AM Final report signed by Munir Morataya MD on 12/21/2024 9:31 AM us Janine HWANG IMG XR PROCEDURES Final Resu lt documented in this encounter Visit Diagnoses Diagnosis Closed fracture of olecranon process of left ulna, initial encounter- Primary Closed fracture of olecranon process of left ulna, initial encounter documented in this encounter Additional Health Concerns Assessment Noted Time PHQ-9 Depression Total Score: 0 11/25/19 25 9:38 AM EDT A fall risk assessment has been complete d for the patient 11/24/2024 9:38 AM EDT A Body Mass Index follow-up plan has been documented for the patient 11/24/2024 11:34 AM EDT documented as of this encounter Care Teams Crackling Press Operator Relationship Specialty Start Date End Date Enmanuel Rg MD [address] [place] [address] PCP - General Internal Medicine 11/08/24 documented as of this encounter
--- OUTSIDE RECORDS SUMMARY | 2024-12-21 09:09 | XMS_ITS | Encounter Summary ---
Author Organization [facility] Address [address] [place] [address] Care Team Providers Care Nail Professional Name Role Phone Enmanuel Rg MD Primary Care Provider + [phone] Encounter Details Date Type Department Care Team (Latest Contact Info) Description 12/21/2024 9:09 AM EDT - 12/21/2024 11:59 PM EDT Hospital Encounter [facility] [address] [place] [address] Closed fracture of olecranon process of left ulna, initial encounter Discharge Disposition: Home or Self [...] on file documented as of this encounter Medications at Time of Discharge [...] tablet Take 1 tablet by mouth daily. ondansetron ODT (Zofran-ODT) 4 MG disintegrating tablet Dissolve 1 tablet on the tongue every 8 hours as needed for nausea or vomiting. ondansetron ODT (Zofran-ODT) 4 MG disintegrating tablet Dissolve 1 tablet on the tongue every 8 hours as needed for nausea or vomiting. 20 tablet 11/10/2024 UNABLE TO FIND Med Name: cbd oil daily documented as of this encounter Plan of Treatment Not on file documented as of this encounter Procedures Procedure Name Priority Date/Time Associated Diagnosis Comments XR ELBOW LEFT 3+ VIEWS Routine 12/21/2024 9:20 AM EDT Closed fracture of olecranon process of [...] Time PHQ-9 Depression Total Score: 0 11/25/19 9:38 AM EDT A fall risk assessment has been complete d for the patient 11/24/2024 9:38 AM EDT A Body Mass Index follow-up plan has been documented for the patient 11/24/2024 11:34 AM EDT documented as of this encounter Care Teams Nail Professional Relationship Specialty Start Date End Date Enmanuel Rg MD [address] [place] [address] PCP - General Internal Medicine 11/08/24 documented as of this encounter
--- OUTSIDE RECORDS SUMMARY | 2024-12-21 10:20 | XMS_ITS | Encounter Summary ---
Author Organization [facility] Address [address] [place] [address] Care Team Providers Care Marketing Executive Name Role Phone Enmanuel Rg MD Primary Care Provider + [phone] Reason for Referral * Consultation (Routine) - Authorized Specialty Diagnoses / Procedures Referred By Contchristiano de leon Referred To Contact Physical Therapy Diagnoses Closed fracture of olecranon process of left ulna, initial encounter Janine Monterroso PA [address] [facility] [address] [place] [address] Phone: tel: fax: Referral ID Status Reason Start Date Expiration Date Visits Requested Visits Authorized [id number] Authorized Consult and Treat 12/21/2024 06/22/2026 1 1 Encounter Details Date Type Department Care Team (Late st Contact Info) Description 12/21/2024 10:20 AM EDT Office Visit [facility] [address] [place] [address] Raúl Baker MD [address] [facility] [address] [place] [address] Closed fracture of olecranon process [...] on file documented as of this encounter Plan of Treatment Scheduled Orders Name Type Priority Associated Diagnoses Orde r Schedule XR Elbow Left 3+ Views Imaging Routine Closed fracture of olecranon process of left ulna, initial encounter 1 Occurrences starting 12/21/2024 until 06/24/2026 Scheduled Referrals Name Type Priority Associated Diagnoses Order Schedule Physical Therapy (outgoing) Outpatient Referral Routine Closed fracture of olecranon process of left ulna, initial encounter 1 Occurrences starting 12/21/2024 until 06/24/2026 documented as of this encounter Visit Diagnoses Diagnosis Closed fracture of olecranon process of left ulna, initial encounter- Primary documented in this encounter Additional Health Concerns Assessment Noted Time PHQ-9 Depression Total Score: 0 11/25/19 9:38 AM EDT A fall risk assessment has been complete d for the patient 11/24/2024 9:38 AM EDT A Body Mass Index follow-up plan has been documented for the patient 11/24/2024 11:34 AM EDT documented as of this encounter Care Teams Marketing Executive Relationship Specialty Start Date End Date Enmanuel Rg MD [address] [place] [address] PCP - General Internal Medicine 11/08/24 documented as of this encounter
--- NOTE | 2024-12-22 14:01 | MM_ITS ---
PROCEDURE INFORMATION: Exam: MG Bilateral Screening 3D Mammography Exam date and time: 12/22/2024 2:04 PM Age: 74 years old Clinical indication: Screening examination TECHNIQUE: Imaging protocol: Bilateral Screening tomosynthesis and 2D mammography including computer-aided detection (CAD) when performed. COMPARISON: 1. MG [facility] MAMMO W/CAD BILAT 12/21/2020 1:20 PM 2. MG [facility] MAMMO W/CAD LT 11/19/2018 3:16 PM FINDINGS: MAMMOGRAPHY: Breast composition: There are scattered areas of fibroglandular density. Mass: None. Architectural distortion: None. Calcifications: No suspicious calcifications. Asymmetric density: None. Skin thickening: None. Axillary adenopathy: None. IMPRESSION: No mammographic evidence of malignancy. Annual screening is recommended unless otherwise clinically indicated. ASSESSMENT: BI-RADS Category 1: Negative.
--- OUTSIDE RECORDS SUMMARY | 2024-12-22 14:06 | XMS_ITS | Clinical Summary ---
Author Organization [facility] Address [address] [place] [address] Care Team Providers Care Health Information Assistant Name Role Phone Enmanuel Rg MD Primary Care Provider + [phone] Allergies Active Allergy Reactions Criticality Noted Date Comments Clarithromycin Other - please docum ent in the comment field Low 11/07/2024 Lidocaine Palpitations Low 11/07/2024 Any of the melquiades Procaine Palpitations Low 11/27/2021 Causes racing-xylocaine also causes same reaction Can use carbocaine Medications montelukast (Singulair) 4 MG chewable tablet Chew every morning. 10/19/19 25 Active doxycycline (Periostat) 20 MG tablet Take 1 tablet by mouth. 2 times a week 12/23/19 24 Active metroNIDAZOLE (Metrocream) 0.75 % cream Apply topically. 2 times a week 01/25/20 24 Active UNABLE TO FIND Med Name: cbd oil daily Active Multiple Vitamin (multivitamin) tablet Take 1 tablet by mouth daily. Active acetaminophen (Tylenol Extra Strength) 500 MG tablet Take 2 tablets by mouth every 8 hours. 100 tablet 11/09/19 25 Active ibuprofen 400 MG tablet Take 1 tablet by mouth every 6 hours as needed for moderate pain. 50 tablet 11/09/19 25 Active ondansetron ODT (Zofran-ODT) 4 MG disintegrating tablet Dissolve 1 tablet on the tongue every 8 hours as needed for nausea or vomiting. Active ondansetron ODT (Zofran-ODT) 4 MG disintegrating tablet Dissolve 1 tablet on the tongue every 8 hours as needed for nausea or vomiting. 20 tablet 11/11/19 25 Active methocarbamol (Robaxin) 500 MG tablet Take 1 tablet by mouth 4 times a day for 14 days. 56 tablet 11/09/19 25 025 Discontinu ed(Per Patient Report) oxyCODONE (Roxicodone) 5 MG immediate release tablet Take 1 tablet by mouth every 6 hours as needed for severe pain. 20 tablet 11/09/19 25 025 Discontinu ed(Per Patient Report) senna-docusate sodium (Senokot-S) 8.6-50 MG tablet Take 1 tablet by mouth 2 times a day for 14 days. 28 tablet 11/09/19 25 025 Additional Information Patient not taking.Reported on 11/24/2024 Active Problems Problem Noted Date Diagnosed Date Mild intermittent asthma without complication Closed fracture of left olecranon process 2024 Encounters Date Type Department Care Team Description 12/21/2024 10:20 AM EDT Office Visit [facility] Orthopaedic Surgery & Sports Medicine [address] [place] [phone] Raúl Baker MD Closed fracture of olecranon process of left ulna, initial encounter (Primary Dx) 12/21/2024 9:09 AM EDT - 12/21/2024 11:59 PM EDT Hospital Encounter [facility] Radiology [address] [place] [phone] Closed fracture of olecranon process of left ulna, initial encounter Discharge Disposition: Home or Self Care 12/21/2024 Travel 11/28/2024 Telephone [facility] Orthopaedic Surgery & Sports Medicine [address] [place] [phone] Raúl Baker MD HCN - Patient Message 11/24/2024 9:30 AM EDT Office Visit [facility] Orthopaedic Surgery & Sports Medicine [address] [place] [phone] Janine Monterroso PA Closed fracture of olecranon process of left ulna, initial encounter (Primary Dx) 11/24/2024 Travel 11/14/2024 Telephone [facility] Orthopaedic Surgery & Sports Medicine [address] [place] [address] Janine Monterroso PA HCN - Patient Message 11/10/2024 Orders Only [facility] Orthopaedic Surgery & Sports Medicine [address], [address] [place] [address] Sharan Bell MD 11/10/2024 Telephone [facility] Orthopaedic Surgery & Sports Medicine [address] [place] [address] Raúl Baker MD HCN - Patient Message 11/09/2024 Telephone [facility] Orthopaedic Surgery & Sports Medicine [address] [place] [address] Raúl Baker MD HCN - Patient Message 11/08/2024 2:48 PM EDT Anesthesia Event [facility] [address] [place] [address] Chavo Mckoy MD Knopp, Brandon W, MD 11/08/2024 1:00 PM EDT - 11/08/2024 3:30 PM EDT Surgery [facility] [address] [place] [phone] Raúl Baker MD ORIF, FRACTURE, OLECRANON [80307 (CPT )] 11/08/2024 10:33 AM EDT - 11/08/2024 8:01 PM EDT Hospital Encounter [facility] [address] [place] [address] Raúl Baker MD Closed fracture of olecranon process of left ulna, initial encounter [S52.022A] (Primary Dx) Discharge Disposition: Home or Self Care 11/08/2024 Travel 11/05/2024 Travel 11/04/2024 6:49 PM EDT - 11/05/2024 10:11 AM EDT Emergency [facility] [address] [place] [address] Danny Beltran MD Akpunonu, MD Helena Grande, Adilene Mccarthy MD Closed fracture of olecranon process of left ulna, initial encounter (Primary Dx); Fall, initial encounter Discharge Disposition: Home or Self Care 11/04/2024 Travel 11/04/2024 Orders Only External Location [address] [place] [address] Regulo Smith MD 11/04/2024 Orders Only External Location [address] [place] [address] Regulo Smith MD 11/04/2024 Orders Only External Location [address] [place] [address] Regulo Smith MD from Last 3 Months Social History Tobacco Use Types Packs/Day Years [...] Pulse 63 11/24/2024 9:37 AM EDT Temperature 36.7 C (98 F) 11/08/2024 5:45 PM EDT Respiratory Rate 14 11/08/2024 7:15 PM EDT Oxygen Saturation 98% 11/24/2024 9:37 AM EDT Inhaled Oxygen Concentration - - Weight 80.2 kg (176 lb 12.8 oz) 11/24/2024 9:37 AM EDT Height 160 cm (5' 3 ) 11/24/2024 9:37 AM EDT Body Mass Index 31.32 11/24/2024 9:37 AM EDT Plan of Treatment Health Maintenance Due Date Last Done Comments [facility]-Bone Density Scan 1950 [facility]-Medicare Annual Wellness (AWV) 1950 [facility]-Infant/Child/Adol SDOH Screenings 1950 [facility]- SDOH Screenings 1969 [facility]-Adult SDOH Screenings 1969 CT Colonography 1996 Colonoscopy 1996 FIT-DNA 1996 FIT 1996 FOBT 1996 Sigmoidoscopy 1996 [facility]-Colorectal Cancer Screening 1996 [facility]-Breast Cancer Screening 2001 [facility]-RSV Vaccine: 60+ Years o r (1 - Risk 60-74 years 1-dose series) 2011 [facility]-NAMBV-13 Vaccine ( - 2024- season) 2024 12/25/2021, 09/27/2020, 08/29/2020 [facility]-Influenza Vaccine (#1) 2024 [facility]-Depression Screening 11/24/2025 025, 11/24/2024 [facility]-DTaP,Tdap,and Td Vaccine s (3 - Td or Tdap) 10/28/2033 10/29/2023, 10/02/2016 [facility]-Pneumococcal Vaccine: 50 + Years Completed 01/04/2021, 12/11/2017 [facility]-Hepatitis A Vaccines Aged Out 022, 11/13/2018 No longer eligible based on patient's age to complete this topic [facility]-Zoster Vaccines Completed 10/14/2024, 09/21/2023, 11/21/2016 [facility]-Hepatitis C Screening Completed 11/05/2024 [facility]-Obesity Intervention Completed 11/24/2024 HPV Vaccines Aged Out No longer eligi ble based on patient's age to complete this topic [facility]-HIB Vaccines Aged Out No longer e ligible based on patient's age to complete this topic [facility]-IPV Vaccines Aged Out No longer e ligible based on patient's age to complete this topic [facility]-Rotavirus Vaccines Aged Out No lo nger eligible based on patient's age to complete this topic Medical Devices Implanted Type Area Process Machine Operator Device Identifier Shelf Expiration Date Model / Serial / Lot Plate Prox Cole Ulna 4h Lt - Sna - [id number] Implanted:Qty : 1 on 11/08/2024 by Raúl Baker MD at [facility] Plate Left: Elbow [id number] 11/08/2025 [id number] / NA / Screw 2.7mm Cortical Small Hex Selftap 44mm - Sna - [id number] Implanted:Qty : 2 on 11/08/2024 by Raúl Baker MD at [facility] Screw Left: Elbow [id number] 11/08/2025 [id number] / NA / Screw 3.5mm Periart 2.7mm Head Selftap 20mm - Sna - [id number] Implanted:Qty : 1 on 11/08/2024 by Raúl Baker MD at [facility] Screw Left: Elbow [id number] 11/08/2025 [id number] / NA / Screw 3.5mm Periart 2.7mm Head Selftap 32mm - Sna - [id number] Implanted:Qty : 1 on 11/08/2024 by Raúl Baker MD at [facility] Screw Left: Elbow [id number] 11/08/2025 [id number] / NA / Wire Olga Trocar Point 1.6mm X 150mm - Sna - [id number] Implanted:Qty : 1 on 11/08/2024 by Raúl Baker MD at [facility] Wire Left: Elbow Synthes [facility]-[id number] 11/08/2025 292.16 / NA / Procedures Procedure Name Priority Date/Time Associated Diagnosis Comments XR ELBOW LEFT 3+ VIEWS Routine 5 9:20 AM EDT Closed fracture of olecranon process of left ulna, initial encounter XR ELBOW LEFT 3+ VIEWS STAT 5 5:25 PM EDT FL LESS THAN 1 HOUR (NON-REPORTABLE) Routine 11/08/2024 4:24 PM EDT PB ANESTHESIA PLACEHOLDER Routine 11/08/2024 3:02 PM EDT OH AN ELECTIVE ENDOTRACHEAL AIRWAY Routine 11/08/2024 3:02 PM EDT OH OPEN TX ULNAR FRACTURE PROX END 11/08/2024 2:32 PM EDT Closed fracture of olecranon process of left ulna, initial encounter XR CHEST 1 VIEW Routine 11/05/2024 6:38 AM EDT ED HIV 1/2 ANTIBODY/ANTIGEN SCREEN WITH REFLEX TO HIV I/II DIFFERENTIATION Routine 11/05/2024 2:46 AM EDT ED PROTOCOL HIV 1/2 ANTIBODY/ANTIGEN SCREEN W/REFLEX TO HIV 1/2 ANTIBODY DIFFERENTIATION Routine 11/05/2024 2:46 AM EDT HEPATITIS C ANTIBODY - ED W/REFLEX TO HCV QUANT PCR Routine 11/05/2024 2:46 AM EDT TYPE AND SCREEN Routine 11/05/2024 2:46 AM EDT PROTHROMBIN TIME(PT) / INR Routine 11/05/2024 2:46 AM EDT CBC W/O DIFFERENTIAL Routine 11/05/2024 2:46 AM EDT BASIC METABOLIC PANEL, PLASMA Routine 11/05/2024 2:46 AM EDT XR ELBOW LEFT 3+ VIEWS STAT 5 2:20 AM EDT ECG ADULT Routine 11/05/2024 1:53 AM EDT XR SHOULDER LEFT 2+ VIEWS STAT 11/05/2024 12:14 AM EDT XR WRIST LEFT 3+ VIEWS STAT 12:14 AM EDT XR FOREARM LEFT 2 VIEWS STAT 11/06/19 12:14 AM EDT XR HUMERUS LEFT 2+ VIEWS STAT 11/05/2024 12:14 AM EDT XR ELBOW LEFT 3+ VIEWS STAT 12:14 AM EDT XR OUTSIDE IMAGES 11/04/2024 3:4 1 PM EDT XR OUTSIDE IMAGES 11/04/2024 3:4 1 PM EDT XR OUTSIDE IMAGES 11/04/2024 3: 41 PM EDT from Last 3 Months Results * XR Elbow Left 3+ Views (12/21/2024 9:20 AM EDT) Only the most recent of4 resultswithin the time period is included. Anatomical Region Laterality Modality Upper Extremities, Elbow [...] HWANG IMG XR PROCEDURES Final Resu lt * FL Less than 1 Hour Intraoperative (11/08/2024 4:24 PM EDT) Narrative IMAGING - 11/08/2024 4:29 PM EDT Images were obtained for surgical purposes. See Raúl Baker's surgical note in the patient's chart for the findings. Raúl Baker MD IMG FLUOROSCOPY PROCEDURES F inal Result IMAGING * OH AN ELECTIVE ENDOTRACHEAL AIRWAY, PB ANESTHESIA PLACEHOLDER (11/08/2024 3:02 PM EDT) Narrative Arnold Banks CRNA - 11/08/2024 3:02 PM EDT Arnold Banks CRNA 11/08/2024 3:23 PM Airway Date/Time: 11/08/2024 3:02 PM Reason: elective Difficult airway General Information and Staff Patient location during procedure: OR METHOD CONSULTANT: Arnold Banks CRNA Performed: MARIPOSA Patient Condition Indications for airway management: anesthesia [...] Additional Comments Atraumatic. No change to dentition. Chavo Mckoy MD ANESTHESIA ORDERABLES Final R esult * XR Chest 1 View (11/05/2024 6:38 [...] Jan Bhardwaj MD on 11/05/2024 6:44 AM us Gordon Frye MD IMG XR PROCEDURES Final Result * ED HIV 1/2 Antibody/Antigen Screen w/Reflex to HIV 1/2 Differentiation (11/05/2024 2:46 AM EDT) [facility] HIV 1 & 2 Antibody/Antigen Screen Non Reactive Non Reactive 11/05/2024 3:49 AM EDT [facility] Comment:Screening for HIV 1 & 2 antibodies, and P24 antigen is NONREACTIVE. No confirmatory testing is required. Blood Venous blood specimen / Unknown Venipuncture / Unknown 11/05/2024 2:46 AM EDT 11/05/2024 3:07 AM EDT us Gordon Frye MD LAB BLOOD ORDERABLES Final Resul t [facility] [address] [place] [address] * Hepatitis C Antibody - ED (11/05/2024 2:46 AM EDT) [facility] Hepatitis C Antibody Negative Negative 11/05/2024 3:49 AM EDT [facility] Blood Venous blood specimen / Unknown Venipuncture / Unknown 11/05/2024 2:46 AM EDT 11/05/2024 3:07 AM EDT us Gordon Frye MD LAB BLOOD ORDERABLES Final Resul t Performing Organization Address City/[facility]/ZIP Co de Phone Number [facility] [address] [place] [address] * Prothrombin Time/INR (11/05/2024 2:46 AM EDT) Pathologist [facility] Prothrombin Time 13.6 12.0 - 14.3 sec 11/05/2024 3:06 AM EDT [facility] INR 1.0 0.9 - 1.1 11/05/2024 3:06 AM EDT [facility] Blood Venous blood specimen / Unknown Venipuncture / Unknown 11/05/2024 2:46 AM EDT 11/05/2024 2:53 AM EDT Narrative [facility] - 11/05/2024 3:06 AM EDT OPTIMAL INR RANGES FOR PATIENT ON ORAL ANTICOAGULANT THERAPY Prevention of venous thromboembolism INR 2.0 to 3.0 In patients with heart disease: Atrial fibrillation INR 2.0 to 3.0 Valvular heart disease INR 2.0 to 3.0 Tissue heart valves INR 2.0 to 3.0 Mechanical prosthetic valves INR 2.5 to 3.5 Prevention of recurrent ID INR 2.5 to 3.5 us Gordon Frye MD LAB BLOOD ORDERABLES Final Resul t Performing Organization Address City/[facility]/ZIP Co de Phone Number [facility] [address] [place] [address] * CBC W/O Differential (11/05/2024 2:46 AM EDT) Pathologist [facility] WBC Count 8.82 3.70 - 10.30 10*3/uL LAB HEMATOLOGY METHOD 11/05/2024 2:54 AM EDT [facility] RBC Count 4.40 3.90 - 5.20 10*6/uL LAB HEMATOLOGY METHOD 11/05/2024 2:54 AM EDT [facility] HGB 13.4 11.2 - 15.7 g/dL LAB HEMATOLOGY METHOD 11/05/2024 2:54 AM EDT [facility] HCT 39.9 34.0 - 45.0 % LAB HEMATOLOGY METHOD 11/05/2024 2:54 AM EDT [facility] Platelet Count 226 155 - 369 10*3/uL LAB HEMATOLOGY METHOD 11/05/2024 2:54 AM EDT [facility] MCV 91 79 - 98 fL LAB HEMATOLOGY METHOD 11/05/2024 2:54 AM EDT [facility] MCH 30.5 26.0 - 32.0 pg LAB HEMATOLOGY METHOD 11/05/2024 2:54 AM EDT [facility] MCHC 33.6 30.7 - 35.5 g/dL LAB HEMATOLOGY METHOD 11/05/2024 2:54 AM EDT [facility] RDW 13.2 11.5 - 14.5 % LAB HEMATOLOGY METHOD 11/05/2024 2:54 AM EDT [facility] MPV 12.0 8.8 - 12.5 fL LAB HEMATOLOGY METHOD 11/05/2024 2:54 AM EDT [facility] nRBC 0.0 <=0.0 per 100 WBCs LAB HEMATOLOGY METHOD 11/05/2024 2:54 AM EDT [facility] Blood Venous blood specimen / Unknown Venipuncture / Unknown 11/05/2024 2:46 AM EDT 11/05/2024 2:53 AM EDT us Gordon Frye MD LAB BLOOD ORDERABLES Final Resul t [facility] [address] [place] [address] * Type and Screen (11/05/2024 2:46 AM [...] BLOOD BANK TEST ORDERABLES F inal Result BLOOD BANK [address] [place] [address], * (ABNORMAL) Basic Metabolic Panel, Plasma (11/05/2024 2:46 AM EDT) Glucose, Plasma 118(H) 74 - 99 mg/dL 11/05/2024 3:36 AM EDT [facility] BUN, Plasma 11 8 - 23 mg/dL 11/05/2024 3:36 AM EDT [facility] Creatinine, Plasma 0.71 0.60 - 1.10 mg/dL 11/05/2024 3:36 AM EDT [facility] BUN/Creatinine Ratio 15 11/05/2024 3:36 AM EDT [facility] Sodium, Plasma 141 136 - 145 mmol/L 11/05/2024 3:36 AM EDT [facility] Potassium, Plasma 3.9 3.6 - 4.9 mmol/L 11/05/2024 3:36 AM EDT [facility] Chloride, Plasma 105 97 - 107 mmol/L 11/05/2024 3:36 AM EDT [facility] CO2, Plasma 23 22 - 29 mmol/L 11/05/2024 3:36 AM EDT [facility] Anion Gap 13 6 - 16 mmol/L 11/05/2024 3:36 AM EDT [facility] Total Calcium, Plasma 9.5 8.9 - 10.2 mg/dL 11/05/2024 3:36 AM EDT [facility] eGFRcr 89.9 mL/min/1.7 3m*2 11/05/2024 3:36 AM EDT [facility] Comment:Reported eGFRcr in m L/min/1.73m2 is based the CKD-EPI 2020 equation that does not use a race coefficient. Blood Venous blood specimen / Unknown Venipuncture / Unknown 11/05/2024 2:46 AM EDT 11/05/2024 3:07 AM EDT Gordon Frye MD LAB BLOOD ORDERABLES Final Resul t Performing Organization Address City/State/[facility] Co de Phone Number [facility] [address] [place] [address] * ECG Adult (11/05/2024 1:53 AM EDT) EKG DIAGNOSIS CLASS Normal MUSE ECG Ventricular Rate 67 BPM MUSE ECG Atrial Rate 67 BPM MUSE ECG OH Interval 118 ms MUSE ECG QRSD Interval 82 ms MUSE ECG QT Interval 436 ms MUSE ECG QTC Interval 460 ms MUSE ECG P Brook 12 degrees MUSE ECG R Brook 58 degrees MUSE ECG T Wave [place] 72 degrees MUSE ECG Diagnosis Normal sinus rhythm MUSE ECG Diagnosis Normal ECG MUSE ECG Diagnosis MUSE ECG Diagnosis Confirmed by Osvaldo Ruiz ([id number]) on 11/05/2024 9:59:05 AM MUSE ECG 11/05/2024 1:53 AM EDT 11/05/2024 9:59 AM EDT Gordon Frye MD ECG ORDERABLES Final Result Performing Organization Address [facility] Co de Phone Number MUSE ECG * XR Wrist Left 3+ Views (11/05/2024 [...] IMG XR PROCEDURES Final Result * XR Shoulder Left 2+ Views (11/05/2024 [...] Alan Haines MD on 11/05/2024 12:21 AM us Gordon Frye MD IMG XR PROCEDURES Final Result * XR OUTSIDE IMAGES (11/04/2024 3:41 PM EDT) Only the most recent of3 resultswithin the time period is included. Anatomical Region Laterality Modality Radiographic Aleyda ging 11/04/2024 3:41 PM EDT us Regulo Smith MD IMG XR PROCEDURES Final Result from Last 3 Months Insurance [employer] MEDICARE Care Teams Health Information Assistant Relationship Specialty Start Date End Date Enmanuel Rg MD [address] [place] [address] PCP - General Internal Medicine 11/08/24
--- OUTSIDE RECORDS SUMMARY | 2024-12-22 14:06 | XMS_ITS | Clinical Summary ---
Author Organization [facility] Address [address] [place] [address] Care Team Providers Care Floor Specialist Name Role Phone Paul Fan MD Primary Care Provider [phone] Allergies Active Allergy Reactions Criticality Noted Date [...] history exists DXA SCAN 12/21/2022 12/21/2020, 12/21/2020 INFLUENZA VACCINE 11/04/2024 COVID-19 Vaccine (5 - 2024-2 6 season) 2024 01/23/2023, 12/25/2021, 09/27/2020, Additional history exists MAMMOGRAM 12/15/2024 12/15/2022, 12/05, 12/21/2020, Additional history exists COLONOSCOPY 11/20/2032 11/20/2022, 04/2014 (Patient-Reported (Performed Externally)) COLORECTAL CANCER SCREENING 11/20/2032 TDAP/TD VACCINES (4 - Td or Tdap) 10/28/2033 10/29/2023, 10/02/2016, 09/12/2016 (Patient-Reported (Performed Externally)) HEPATITIS C SCREENING Completed 09/25/2016, 017 Pneumococcal Vaccine 50+ Completed 01/04/2021, 10/2017 ZOSTER VACCINE Completed 10/14/2024, 09/04, 11/21/2016, Additional history exists Procedures Procedure Name Priority Date/Time Associated Diagnosis Comments SCANNED - MAMMO 12/15/2022 SCANNED - COLONOSCOPY 11/20/2022 SCANNED - DEXA 12/21/2020 HEPATITIS C ANTIBODY [...] TABS Final Resu lt * SCANNED - DEXA (12/21/2020) Anatomical Region [...] with a HCV Nucleic Acid Amplification test ([id number]). Blood 09/25/2016 11:1 5 AM EDT 09/25/2016 Narrative [facility] (AMBULATORY) - 09/26/2016 5:12 AM EDT Performed at: 02 - [facility] [id number] Crystallography Teacher: Osvaldo Cifuentes PhD, Phone: [phone] Patient Fasting: Y us Madison Harrison APRN LAB BLOOD ORDERABLES Final Resul t [facility] [address] [place] [address], [place] [phone] [facility] [address] [place] [address], [place] [phone] from Last 3 Months or Most Recently Relevant to Health Maintenance Insurance MEDICARE A & B [employer] [place] [id number] Care Teams Floor Specialist Relationship Specialty Start Date End Date Paul Fan MD [address] [place] [address] [place] [address] PCP - General Family Medicine 05/30/21
--- OUTSIDE RECORDS SUMMARY | 2024-12-22 14:06 | XMS_ITS | Encounter Summary ---
Author Organization Healthcare Address [address] [place] [address] Care Team Providers Care Motion Picture Projectionist Name Role Phone Enmanuel Rg MD Primary Care Provider + [phone] Encounter Details Date Type Department Care Team (Late st Contact Info) Description 11/10/2024 Orders Only [facility] Orthopaedic Surgery & Sports Medicine [address] [place] [address] Sharan Bell MD [address] [phone] Social History Tobacco Use Types Packs/Day Years [...] on file documented as of this encounter Visit Diagnoses Not on filedocumented in this encounter Care Teams Motion Picture Projectionist Relationship Specialty Start Date End Date Enmanuel Rg MD [address] [place] [address] PCP - General Internal Medicine 11/08/24 documented as of this encounter
--- OUTSIDE RECORDS SUMMARY | 2024-12-22 14:06 | XMS_ITS | Encounter Summary ---
Author Organization Healthcare Address [address] [place] [address] Care Team Providers Care Interlocking And Signal Mechanic Name Role Phone Enmanuel Rg MD Primary Care Provider + [phone] Reason for Visit * Reason Onset Date Comments HCN - Patient Message 11/14/2024 Encounter Details Date Type Department Care Team (Late st Contact Info) Description 11/14/2024 Telephone [facility] Orthopaedic Surgery & Sports Medicine [address] [place] [address] Janine Monterroso PA [address] [place] [address] HCN - Patient Message Social History Tobacco Use Types Packs/Day Years [...] as of this encounter Functional Status * Over the [...] as of this encounter Miscellaneous Notes * Telephone Encounter - Monica Del Angel RN - 11/15/2024 2:00 PM EDT Spoke with pt. She is concerned how the methocarbamol is making her feel and wants to know if she needs to continue to take it. Advised if she is not having muscle spasms and her pain is well controlled with OTC meds, she does not need to take it. Pt will taper down to twice daily and d/c it all together or take HS if she has trouble sleeping. Pt will call back if she has further questions. * Telephone Encounter - Stuart Peter - 11/14/2024 9:27 AM EDT Clinical Concern/Question Reason for Call: Kriss patient is asking to discuss her methocarbamol questions with a nurse Best contact number: [phone] (mobile) Optimal time of day to reach caller: ANYTIME Additional comments/information from caller: None Note: Please do not reply to this message. Follow-up communication and further actions as a result of this message need to be communicated with the patient directly, if the patient is not active onMyChart. If the patient is active on MyChart, they will receive notification of the communication/outcome via [employer]TRAX. documented in this encounter Plan of Treatment Not on file documented as of this encounter Visit Diagnoses Not on filedocumented in this encounter Care Teams Interlocking And Signal Mechanic Relationship Specialty Start Date End Date Enmanuel Rg MD [address] [place] [address] PCP - General Internal Medicine 11/08/24 documented as of this encounter
--- OUTSIDE RECORDS SUMMARY | 2024-12-22 14:06 | XMS_ITS | Encounter Summary ---
Author Organization [facility] Address [address] [place] [address] Care Team Providers Care Fuse Assembler Name Role Phone Enmanuel Rg MD Primary Care Provider + [phone] Encounter Details Date Type Department Care Team (Latest Contact Info) Description 11/24/2024 Travel Social History Tobacco Use Types Packs/Day Years [...] things Not at all 11/24/2024 9:38 AM Maranda Basilio Feeling down, depressed, or hopeless Not at [...] Maranda Basilio documented as of this encounter Plan of Treatment Not on file documented as of this encounter Visit Diagnoses Not on filedocumented in this encounter Additional Health Concerns Assessment Noted Time PHQ-9 Depression Total Score: 0 11/25/19 9:38 AM EDT A fall risk assessment has been complete d for the patient 11/24/2024 9:38 AM EDT A Body Mass Index follow-up plan has been documented for the patient 11/24/2024 11:34 AM EDT documented as of this encounter Care Teams Fuse Assembler Relationship Specialty Start Date End Date Enmanuel Rg MD [address] [address] [place] [address] PCP - General Internal Medicine 11/08/24 documented as of this encounter
--- OUTSIDE RECORDS SUMMARY | 2024-12-22 14:06 | XMS_ITS | Encounter Summary ---
Author Organization Healthcare Address [address] [place] [address] Care Team Providers Care Pony Ride Operator Name Role Phone Enmanuel Rg MD Primary Care Provider + [phone] Encounter Details Date Type Department Care Team (Latest Contact Info) Description 12/21/2024 Travel Social History Tobacco Use Types Packs/Day [...] documented as of this encounter Care Teams Pony Ride Operator Relationship Specialty Start Date End Date Enmanuel Rg MD [address] [place] [address] PCP - General Internal Medicine 11/08/24 documented as of this encounter
--- OUTSIDE RECORDS SUMMARY | 2024-12-22 14:06 | XMS_ITS | Encounter Summary ---
Author Organization Healthcare Address [address] [place] [address] Care Team Providers Care Solvent Plant Treater Name Role Phone Enmanuel Rg MD Primary Care Provider + [phone] Reason for Visit * Reason Onset Date Comments HCN - Patient Message 11/28/2024 Encounter Details Date Type Department Care Team (Late st Contact Info) Description 11/28/[address] [facility] Orthopaedic Surgery & Sports Medicine [address] [place] [address] Raúl Edwards MD [address] [place] [address] HCN - Patient Message Social [...] on file documented as of this encounter Miscellaneous Notes * Telephone Encounter - Gracia Toscano - 11/28/2024 6:41 PM EDT Physical therapy order faxed. -Lenore * Telephone Encounter - Ignacia Light - 11/28/2024 1:54 PM EDT Paperwork/Documentation Request EDWARDS Patient Name: Lashell Mao Type: PT orders Due Date: CORY Send To: Rosa with [facility] fax #[phone] Best contact number: Other: [phone] Optimal time of day to reach caller: ANYTIME Additional comments/information from caller: None Note: Please do not reply to this message. Follow-up communication and further actions as a result of this message need to be communicated with the patient directly, if the patient is not active onMyChart. If the patient is active on MyChart, they will receive notification of the communication/outcome via Unidym. documented in this encounter Plan of Treatment [...] documented as of this encounter Care Teams Solvent Plant Treater Relationship Specialty Start Date End Date Enmanuel Rg MD [address] [place] [address] PCP - General Internal Medicine 11/08/24 documented as of this encounter
--- OUTSIDE RECORDS SUMMARY | 2024-12-22 14:06 | XMS_ITS | Encounter Summary ---
Author Organization Healthcare Address [address] [place] [address] Care Team Providers Care Microcomputer Support Specialist Name Role Phone Enmanuel Rg MD Primary Care Provider + [phone] Reason for Visit * Reason Onset Date Comments HCN - Patient Message 11/09/2024 Encounter Details Date Type Department Care Team (Late st Contact Info) Description 11/09/2024 Telephone [facility] Orthopaedic Surgery & Sports Medicine [address] [place] [address] Raúl Baker MD [address] [place] [address] HCN - Patient Message Social [...] Encounter - Monica Del Angel RN - 11/10/2024 10:13 AM EDT Duplicate. * Telephone Encounter - Monica Del Angel RN - 11/10/2024 8:24 AM EDT LVM * Telephone Encounter - Lynn Crane - 11/09/2024 4:04 PM EDT Clinical Concern/Question Reason for Call: Pt daughter is requesting call back on how her medication are interacting she has left arm/hand swelling please call Best contact number: [phone] Optimal time of day to reach caller: ANYTIME Additional comments/information from caller: None Note: Please do not reply to this message. Follow-up communication and further actions as a result of this message need to be communicated with the patient directly, if the patient is not active onMyChart. If the patient is active on MyChart, they will receive notification of the communication/outcome via TopLogt. documented in this encounter Plan of Treatment Not on file documented as of this encounter Visit Diagnoses Not on filedocumented in this encounter Care Teams Microcomputer Support Specialist Relationship Specialty Start Date End Date Enmanuel Rg MD [address] [place] [address] PCP - General Internal Medicine 11/08/24 documented as of this encounter
--- OUTSIDE RECORDS SUMMARY | 2024-12-22 14:06 | XMS_ITS | Encounter Summary ---
Author Organization [facility] Address [address] [place] [address] Care Team Providers Care Soot Blower Name Role Phone Enmanuel Rg MD Primary Care Provider + [phone] Encounter Details Date Type Department Care Team (Latest Contact Info) Description 11/08/2024 Travel Social History Tobacco Use Types Packs/Day [...] Tapia RN documented as of this encounter Plan of Treatment Not on file documented as of this encounter Visit Diagnoses Not on filedocumented in this encounter Care Teams Soot Blower Relationship Specialty Start Date End Date Enmanuel Rg MD [address] [place] [address] PCP - General Internal Medicine 11/08/24 documented as of this encounter
--- OUTSIDE RECORDS SUMMARY | 2024-12-22 14:06 | XMS_ITS | Encounter Summary ---
Author Organization Healthcare Address [address] [place] [address] Care Team Providers Care Patient Flow Coordinator Name Role Phone Enmanuel Rg MD Primary Care Provider + [phone] Reason for Visit * Reason Onset Date Comments HCN - Patient Message 11/10/2024 Encounter Details Date Type Department Care Team (Late st Contact Info) Description 11/10/2024 Telephone [facility] Orthopaedic Surgery & Sports Medicine [address] [place] [address] Raúl Edwards MD [address] [place] [address] HCN - Patient Message Social [...] - Monica Del Angel RN - 11/10/2024 12:10 PM EDT Spoke with pt daughter and advised on script. She will call us back if nausea does not resolve or she develops any other symptoms. * Telephone Encounter - Ignacia Light - 11/10/2024 9:51 AM EDT Clinical Concern/Question EDWARDS Reason for Call: Patient's daughter calling stating patient is having severe nausea and isn't eating or drinking because of it. She is requesting a medication for nausea if possible. Please send to: [phone] [address] [place], [place] - [address] [facility]. Please call Sheridan back to advise when this is complete. Best contact number: Sheridan [phone] Optimal time of day to reach caller: ANYTIME Additional comments/information from caller: None Note: Please do not reply to this message. Follow-up communication and further actions as a result of this message need to be communicated with the patient directly, if the patient is not active onMyChart. If the patient is active on MyChart, they will receive notification of the communication/outcome via [employer]. documented in this encounter Plan of Treatment Not on file documented as of this encounter Visit Diagnoses Not on filedocumented in this encounter Care Teams Patient Flow Coordinator Relationship Specialty Start Date End Date Enmanuel Rg MD [address] [place] [address] PCP - General Internal Medicine 11/08/24 documented as of this encounter
--- OUTSIDE RECORDS SUMMARY | 2024-12-22 14:07 | XMS_ITS | Encounter Summary ---
Author Organization Healthcare Address [address] [place] [address] Care Team Providers Care Manager Real Estate Name Role Phone Unavailable Primary Care Provider Unavailabl e Encounter Details Date Type Department Care Team (Latest Contact Info) Description 11/04/2024 Travel Social History Tobacco Use Types Packs/Day [...] Gómez RN documented as of this encounter Plan of Treatment Not on file documented as of this encounter Visit Diagnoses Not on filedocumented in this encounter
--- OUTSIDE RECORDS SUMMARY | 2024-12-22 14:07 | XMS_ITS | Encounter Summary ---
Author Organization Healthcare Address [address] [place] [address] Care Team Providers Care Shirt Operator Name Role Phone Pcp, No Primary Care Provider Enmanuel Buckley MD Primary Care Provider + [phone] Encounter Details Date Type Department Care Team (Late st Contact Info) Description 11/04/2024 Orders Only External Location [address] [place] [phone] Regulo Smith MD [address] [place] [phone] Social History Tobacco Use Types Packs/Day Years [...] Name Priority Date/Time Associated Diagnosis Comments XR OUTSIDE IMAGES 11/04/2024 3:41 PM EDT documented in this encounter Results * XR OUTSIDE IMAGES (11/04/2024 3:41 PM EDT) Anatomical Region Laterality Modality Radiographic Aleyda ging 11/04/2024 3:41 PM EDT Regulo Smith MD IMG XR PROCEDURES Final Result documented in this encounter Visit Diagnoses Not on filedocumented in this encounter Care Teams Shirt Operator Relationship Specialty Start Date End Date Pcp, [facility] [address] [place] [address] PCP - General Family Medicine 11/05/24 11/05/24 Enmanuel Rg MD [address] [facility] [address] [place] [address] PCP - General Internal Medicine 11/08/24 documented as of this encounter
--- OUTSIDE RECORDS SUMMARY | 2024-12-22 14:07 | XMS_ITS | Encounter Summary ---
Author Organization Healthcare Address [address] [place] [address] Care Team Providers Care Desktop Technician Name Role Phone Pcp, No Primary Care Provider Unavailabl e Encounter Details Date Type Department Care Team (Latest Contact Info) Description 11/05/2024 Travel Social History Tobacco Use Types Packs/Day [...] on filedocumented in this encounter Care Teams Desktop Technician Relationship Specialty Start Date End Date Pcp, [facility] [address] [place] [address] PCP - General Family Medicine 11/05/24 11/05/24 documented as of this encounter
--- OUTSIDE RECORDS SUMMARY | 2024-12-22 14:07 | XMS_ITS | Encounter Summary ---
Author Organization Healthcare Address [address] [place] [address] Care Team Providers Care Willow Worker Name Role Phone Pcp, No Primary Care Provider Enmanuel Buckley MD Primary Care Provider + [phone] Encounter Details Date Type Department Care Team (Late st Contact Info) Description 11/04/2024 Orders Only External Location [address] [place] [phone] Regulo Smith MD [address] [place] [phone] Social History Tobacco Use Types Packs/Day [...] on filedocumented in this encounter Care Teams Willow Worker Relationship Specialty Start Date End Date Pcp, [facility] [address] [place] [address] PCP - General Family Medicine 11/05/24 11/05/24 Enmanuel Rg MD [address] [facility] [address] [place] [address] PCP - General Internal Medicine 11/08/24 documented as of this encounter
--- OUTSIDE RECORDS SUMMARY | 2024-12-22 14:07 | XMS_ITS | Encounter Summary ---
Author Organization Healthcare Address [address] [place] [address] Care Team Providers Care Vp Customer Development Name Role Phone Pcp, No Primary Care Provider Enmanuel Buckley MD Primary Care Provider + [phone] Encounter Details Date Type Department Care Team (Late st Contact Info) Description 11/04/2024 Orders Only External Location [address] [place] [phone] Regulo Smith MD [address] [place] [phone] Social History Tobacco Use Types Packs/Day [...] on filedocumented in this encounter Care Teams Vp Customer Development Relationship Specialty Start Date End Date Pcp, [facility] [address] [place] [address] PCP - General Family Medicine 11/05/24 11/05/24 Enmanuel Rg MD [address] [facility] [address] [place] [address] PCP - General Internal Medicine 11/08/24 documented as of this encounter
== END 2024-12-22 23:59 | disposition home or self-care (01) ==
LOC: RAD 13:58
PROVIDERS: PCP Internal Medicine Adolescent Medicine; Visit Provider Internal Medicine Adolescent Medicine
DX: Z12.31 Encounter for screening mammogram for malignant neoplasm of breast (principal); R92.323 Mammographic fibroglandular density, bilateral breasts
CPT/HCPCS: 77063; 77067